=== PATIENT | female | born 1960 ===

== ENCOUNTER 2020-03-04 09:37 | Outpatient (REF) | payer OTHER, SELFPAY ==
[2020-03-04 10:43] LABS: MANUAL DIFF FLAG NO
[2020-03-04 10:47] LABS: Basophils Absolute Auto 0.1 X10*3/uL (0.0-0.2); Basophils Percent Auto 0.7 % (0-2); Eosinophils Absolute Auto 0.1 X10*3/uL (0.0-0.4); Eosinophils Percent Auto 1.5 % (0-4); Hematocrit 41.8 % (37-47); Hemoglobin 13.1 g/dl (12.0-16.0); Imm Gran Abs Auto 0.05 X10*3/uL (0.00-0.03); Imm Gran Pct Auto 0.7 % (0.0-0.4); Lymphocytes Absolute Auto 2.7 X10*3/uL (1.2-4.9); Lymphocytes Percent Auto 37.8 % (20-40); Mean Corpuscular HGB Conc 31.3 g/dl (31.0-35.0); Mean Corpuscular Hemoglobin 27.9 pg (27.0-33.0); Mean Corpuscular Volume 88.9 fL (80-98); Mean Platelet Volume 9.4 fL (9.4-12.3); Monocytes Absolute Auto 0.5 X10*3/uL (0.1-1.2); Monocytes Percent Auto 7.3 % (2-11); Neutrophils Absolute Auto 3.7 X10*3/uL (2.0-8.3); Platelet Count 290 X10*3/uL (160-400); Red Cell Distribution Width 13.3 % (11.0-16.0); White Blood Count 7.1 X10*3/uL (4.8-10.8)
[2020-03-04 10:54] LABS: Appearance Urine HAZY; Color Urine YELLOW; Glucose Urine UA 500 MG/DL (NEG); Leukocyte Esterase Urine NEG (NEG); Nitrite Urine NEG (NEG); Urine Blood NEG (NEG); Urine Ketones 5 MG/DL (NEG); Urine Protein NEG (NEG-TRACE)
[2020-03-04 11:06] LABS: RBC Urine 0-2 /HPF (0); Squamous Epithelial Cell Urine 2+ /LPF; WBC Urine 0-2 /HPF (0-4)
[2020-03-04 11:16] LABS: Alanine Aminotransferase 22 U/L (0-31); Albumin Level 4.3 g/dL (3.5-5.0); Alkaline Phosphatase 86 U/L (39-117); Anion Gap 11 (12-20); Aspartate Amino Transferase 15 U/L (5-31); Bilirubin Total 0.5 mg/dL (0.0-1.0); Blood Urea Nitrogen 12 mg/dL (9-16); Calcium 9.7 mg/dL (8.4-10.2); Carbon Dioxide 34 mmol/L (22-29); Chloride 99 mmol/L (96-108); Cholesterol 188 mg/dL; Estimated Glomerular Filt Rate > 60; Glucose Fasting 249 mg/dL (60-99); HDL Cholesterol 43 mg/dL; LDL Cholesterol Calculated 102 mg/dl; Potassium 4.7 mmol/l (3.3-5.1); Sodium 139 mmol/L (135-145); Total Protein 7.3 g/dL (6.5-8.0); Triglycerides 218 mg/dL
[2020-03-04 11:41] LABS: TSH reflex Free T4 0.85 mIU/mL (0.32-4.0); Vitamin D 25-OH Total 36.7 ng/mL (>30)
[2020-03-04 12:05] LABS: Creatinine Urine 93.81 mg/dL; Microalbum/Creatinine Ratio Ur 11.7 ug/mg cr
[2020-03-04 12:10] LABS: Folate 7.3 ng/mL (> or = 4.0); Vitamin B12 312 pg/mL (200-900)
== END 2020-03-04 09:38 | disposition home or self-care (01) ==
LOC: HO.LAB 09:37
PROVIDERS: PCP Internal Medicine; Visit Provider Internal Medicine
DX: E11.9 Type 2 diabetes mellitus without complications (principal); I10 Essential (primary) hypertension; E78.5 Hyperlipidemia, unspecified; R41.3 Other amnesia; E53.8 Deficiency of other specified B group vitamins; K21.9 Gastro-esophageal reflux disease without esophagitis; E55.9 Vitamin D deficiency, unspecified
CPT/HCPCS: 36415; 80053; 80061; 81003; 81015; 82043; 82306; 82607; 82746; 84443; 85025

== ENCOUNTER 2020-05-05 08:34 | Outpatient (REF) | payer OTHER, SELFPAY ==
--- NOTE | 2020-05-06 10:21 | MHC.AU.P13 ---
Adult Audiological Evaluation Date of Visit: 05/05/20 [place] Used: Not Applicable Reason for Appointment: Audiologic re-evaluation due to fluctuating changes in hearing ability. Previous Hearing Test Results: 06/17/2018 [facility] Right ear: Normal thresholds at 250 and 500 Hz sloping to a moderate high frequency sensorineural hearing loss. Left ear: No measurable hearing for all frequencies. Ear History: Bothersome Tinnitus/Ringing/Noises in Ears: Both Ears Medical History: Medical History: Diabetes Head Injury High Blood Pressure Migraines Medical History: Asthma, high cholesterol, Vitamin B12 and D deficiency Hearing Instrument History- Right Ear: Street Roller Engineer: Phonak Model: Audeo B-312 Serial Number: [id number] Battery Size: 312 Warranty: 06/05/2019 Dispensed By: [facility] Date of Fittin03/16/2017 Hearing Instrument History- Left Ear: Street Roller Engineer: Phonak Model: CROS B-312 Serial Number: [id number] Battery Size: 312 Warranty: 06/05/2019 Dispensed By: [facility] Date of Fittin03/16/2017 Otoscopy: Right Ear: Unremarkable Left Ear: Unremarkable Tympanometry: Right Ear: Negative Middle Ear Pressure (Type C) Left Ear: Non-compliant Middle Ear System (Type B) Hearing Evaluation: Transducer(s) Used: Insert Earphones Bone Conduction Method: Conventional Audiometry Stimuli Used: Pure Tones Right Ear: Description of Hearing: Mild to moderately-severe mixed hearing loss Left Ear: Description of Hearing: No measurable hearing ability for all frequencies 250-8000 Hz. Speech Recognition Threshold (SRT): Method Used: Monitored Live Voice Stimuli Used: Spondee Words Right Ear: 35 dB HL Left Ear: Did Not Test Word Discrimination: Method: Recorded Lists Word Lists Used: NU-6 Right Ear: 76% at 75 dB HL Left Ear: Did Not Test Comparison: Compared to most recent evaluation: 10 dB conductive decrease for the right ear at 250-1000 Hz. This may be related to the increased right ear negative middle ear pressure compared to 2019 results. The perceived fluctuation of hearing may also relate to intermittent changes in middle ear pressure as Yvonne reports intermittent increases in congestion. Recommendations: Recommendations: Audiological re-evaluation in one year. See Hearing Aid Follow-Up note for more information. Diagnosis: Primary Diagnosis: H90.3 Bilateral Sensorineural Hearing Loss Secondary Diagnosis: H69.92 Unspecified Eustachian Tube Dysfunction, Left Ear Services Performed: Services Performed: Comprehensive Audiological Evaluation (CPT 28273) Tympanometry (CPT 61304) Signature: Provider: Reji Bernstein, CCC-A
== END 2020-05-05 08:35 | disposition home or self-care (01) ==
LOC: HO.SH 08:34
PROVIDERS: Visit Provider Internal Medicine
DX: H69.92 Unspecified Eustachian tube disorder, left ear (principal); H90.3 Sensorineural hearing loss, bilateral
CPT/HCPCS: 92557; 92567

== ENCOUNTER 2020-05-17 10:10 | Outpatient (REF) | payer OTHER, SELFPAY ==
--- NOTE | 2020-05-17 10:42 | XR_ITS ---
EXAMINATION: XR STANDING AP KNEES, BILATERAL XR KNEE, RIGHT XR KNEE, LEFT CLINICAL INFORMATION: Bilateral knee pain. COMPARISON: Standing AP knees and bilateral knees 05/10/2016. TECHNIQUE: Standing AP view of both knees is performed. In addition, each knee is imaged in lateral and axial patella views. FINDINGS: Right knee: There is normal bony mineralization. No fracture, dislocation, destructive process, or suprapatellar effusion. Hoffa's fat pad appears normal. There are degenerative changes patellofemoral joint with mild narrowing and patellar spurring. There are small marginal osteophytes medial femoral condyle and medial lateral tibial plateau. No erosive change or chondrocalcinosis. Left knee: There is normal bony mineralization. No fracture, dislocation, destructive process, or suprapatellar effusion. Hoffa's fat pad appears normal. There are degenerative changes patellofemoral joint with mild narrowing and patellar spurring. There are small marginal osteophytes medial and lateral femoral condyles and medial and lateral tibial plateau. There is also central spurring tibial spine and inner aspect condyles. No erosive change or chondrocalcinosis. XR/XR knee RT 2V IMPRESSION: Bilateral degenerative changes with bilateral patellofemoral joint narrowing and variable osteophytes femoral condyles and tibial plateau. No erosive change, visible chondrocalcinosis, or effusion.
--- NOTE | 2020-05-17 10:42 | XR_ITS ---
EXAMINATION: XR STANDING AP KNEES, BILATERAL XR KNEE, RIGHT XR KNEE, LEFT CLINICAL INFORMATION: Bilateral knee pain. COMPARISON: Standing AP knees and bilateral knees 05/10/2016. TECHNIQUE: Standing AP view of both knees is performed. In addition, each knee is imaged in lateral and axial patella views. FINDINGS: Right knee: There is normal bony mineralization. No fracture, dislocation, destructive process, or suprapatellar effusion. Hoffa's fat pad appears normal. There are degenerative changes patellofemoral joint with mild narrowing and patellar spurring. There are small marginal osteophytes medial femoral condyle and medial lateral tibial plateau. No erosive change or chondrocalcinosis. Left knee: There is normal bony mineralization. No fracture, dislocation, destructive process, or suprapatellar effusion. Hoffa's fat pad appears normal. There are degenerative changes patellofemoral joint with mild narrowing and patellar spurring. There are small marginal osteophytes medial and lateral femoral condyles and medial and lateral tibial plateau. There is also central spurring tibial spine and inner aspect condyles. No erosive change or chondrocalcinosis. XR/XR knee standing BI IMPRESSION: Bilateral degenerative changes with bilateral patellofemoral joint narrowing and variable osteophytes femoral condyles and tibial plateau. No erosive change, visible chondrocalcinosis, or effusion.
--- NOTE | 2020-05-17 10:42 | XR_ITS ---
EXAMINATION: XR STANDING AP KNEES, BILATERAL XR KNEE, RIGHT XR KNEE, LEFT CLINICAL INFORMATION: Bilateral knee pain. COMPARISON: Standing AP knees and bilateral knees 05/10/2016. TECHNIQUE: Standing AP view of both knees is performed. In addition, each knee is imaged in lateral and axial patella views. FINDINGS: Right knee: There is normal bony mineralization. No fracture, dislocation, destructive process, or suprapatellar effusion. Hoffa's fat pad appears normal. There are degenerative changes patellofemoral joint with mild narrowing and patellar spurring. There are small marginal osteophytes medial femoral condyle and medial lateral tibial plateau. No erosive change or chondrocalcinosis. Left knee: There is normal bony mineralization. No fracture, dislocation, destructive process, or suprapatellar effusion. Hoffa's fat pad appears normal. There are degenerative changes patellofemoral joint with mild narrowing and patellar spurring. There are small marginal osteophytes medial and lateral femoral condyles and medial and lateral tibial plateau. There is also central spurring tibial spine and inner aspect condyles. No erosive change or chondrocalcinosis. XR/XR knee LT 2V IMPRESSION: Bilateral degenerative changes with bilateral patellofemoral joint narrowing and variable osteophytes femoral condyles and tibial plateau. No erosive change, visible chondrocalcinosis, or effusion.
[2020-05-17 11:07] LABS: MANUAL DIFF FLAG NO
[2020-05-17 11:11] LABS: Basophils Absolute Auto 0.1 X10*3/uL (0.0-0.2); Basophils Percent Auto 0.7 % (0-2); Eosinophils Absolute Auto 0.1 X10*3/uL (0.0-0.4); Eosinophils Percent Auto 1.2 % (0-4); Hematocrit 41.1 % (37-47); Hemoglobin 13.1 g/dl (12.0-16.0); Imm Gran Abs Auto 0.06 X10*3/uL (0.00-0.03); Imm Gran Pct Auto 0.8 % (0.0-0.4); Lymphocytes Absolute Auto 2.3 X10*3/uL (1.2-4.9); Lymphocytes Percent Auto 29.4 % (20-40); Mean Corpuscular HGB Conc 31.9 g/dl (31.0-35.0); Mean Corpuscular Hemoglobin 28.4 pg (27.0-33.0); Mean Corpuscular Volume 89.2 fL (80-98); Mean Platelet Volume 9.5 fL (9.4-12.3); Monocytes Absolute Auto 0.6 X10*3/uL (0.1-1.2); Monocytes Percent Auto 7.4 % (2-11); Neutrophils Absolute Auto 4.6 X10*3/uL (2.0-8.3); Neutrophils Percent Auto 60.5 % (45-73); Platelet Count 293 X10*3/uL (160-400); Red Blood Count 4.61 X10*6/uL (4.20-5.50); Red Cell Distribution Width 13.3 % (11.0-16.0); White Blood Count 7.7 X10*3/uL (4.8-10.8)
[2020-05-17 11:33] LABS: Alanine Aminotransferase 22 U/L (0-31); Albumin Level 4.4 g/dL (3.5-5.0); Alkaline Phosphatase 87 U/L (39-117); Anion Gap 15 (12-20); Aspartate Amino Transferase 17 U/L (5-31); Bilirubin Total 0.3 mg/dL (0.0-1.0); Blood Urea Nitrogen 16 mg/dL (9-16); Calcium 9.6 mg/dL (8.4-10.2); Carbon Dioxide 28 mmol/L (22-29); Chloride 100 mmol/L (96-108); Cholesterol 192 mg/dL; Estimated Glomerular Filt Rate > 60; Glucose Fasting 254 mg/dL (60-99); HDL Cholesterol 42 mg/dL; LDL Cholesterol Calculated 109 mg/dl; Potassium 4.6 mmol/l (3.3-5.1); Sodium 138 mmol/L (135-145); Total Protein 7.6 g/dL (6.5-8.0); Triglycerides 205 mg/dL
[2020-05-17 11:44] LABS: TSH reflex Free T4 0.76 mIU/mL (0.32-4.0); Vitamin D 25-OH Total 34.1 ng/mL (>30)
[2020-05-17 11:49] LABS: Glucose Urine UA 500 MG/DL (NEG); Leukocyte Esterase Urine NEG (NEG); Nitrite Urine NEG (NEG); Specific Gravity - Urine >= 1.030 (1.005-1.025); Urine Blood NEG (NEG); Urine Ketones 5 MG/DL (NEG); Urine Protein NEG (NEG-TRACE)
[2020-05-17 11:58] LABS: Appearance Urine CLEAR; Color Urine YELLOW
[2020-05-17 12:02] LABS: Creatinine Urine 124.33 mg/dL; Microalbum/Creatinine Ratio Ur 15.2 ug/mg cr
[2020-05-17 12:03] LABS: Folate 13.8 ng/mL (> or = 4.0); Vitamin B12 504 pg/mL (200-900)
== END 2020-05-17 10:11 | disposition home or self-care (01) ==
LOC: HO.LAB 10:10
PROVIDERS: Absent Provider Orthopaedic Surgery; PCP Internal Medicine; Visit Provider Internal Medicine
DX: I10 Essential (primary) hypertension (principal); K21.9 Gastro-esophageal reflux disease without esophagitis; E53.8 Deficiency of other specified B group vitamins; E11.9 Type 2 diabetes mellitus without complications; E78.00 Pure hypercholesterolemia, unspecified; E55.9 Vitamin D deficiency, unspecified; E66.9 Obesity, unspecified; M25.562 Pain in left knee; M25.561 Pain in right knee
CPT/HCPCS: 36415; 73560; 73565; 80053; 80061; 81003; 82043; 82306; 82607; 82746; 84443; 85025

== ENCOUNTER → 2020-05-25 08:01 | Outpatient (BNVA) | payer OTHER, SELFPAY | PROVIDERS: PCP Internal Medicine; Visit Provider Orthopaedic Surgery | DX: M17.0 Bilateral primary osteoarthritis of knee (principal) | CPT/HCPCS: 20610; 99202; J1040 ==

== ENCOUNTER → 2020-06-08 08:15 | Outpatient (BNVA) | payer OTHER, SELFPAY | PROVIDERS: PCP Internal Medicine; Visit Provider Orthopaedic Surgery | DX: M17.0 Bilateral primary osteoarthritis of knee (principal) | CPT/HCPCS: 20610; 99212; J1040 ==

== ENCOUNTER 2020-07-15 14:54 | Outpatient (REF) | payer OTHER, SELFPAY ==
[2020-07-20 17:37] LABS: HPV mRNA E6/E7 rflx Not Detected (Not Detected)
== END 2020-07-15 14:55 | disposition home or self-care (01) ==
LOC: HO.LAB 14:54
PROVIDERS: PCP Internal Medicine; Visit Provider Obstetrics & Gynecology
DX: Z01.419 Encounter for gynecological examination (general) (routine) without abnormal findings (principal); N95.0 Postmenopausal bleeding; Z11.51 Encounter for screening for human papillomavirus (HPV); I10 Essential (primary) hypertension; E11.9 Type 2 diabetes mellitus without complications; E78.00 Pure hypercholesterolemia, unspecified; E66.9 Obesity, unspecified; F41.8 Other specified anxiety disorders; J30.81 Allergic rhinitis due to animal (cat) (dog) hair and dander; Z88.0 Allergy status to penicillin; Z88.2 Allergy status to sulfonamides; Z88.8 Allergy status to other drugs, medicaments and biological substances; Z88.6 Allergy status to analgesic agent; Z91.040 Latex allergy status; Z79.84 Long term (current) use of oral hypoglycemic drugs; Z79.899 Other long term (current) drug therapy
CPT/HCPCS: 36415; 87624; 88142

== ENCOUNTER 2020-07-26 14:25 | Outpatient (REF) | payer OTHER, SELFPAY ==
--- NOTE | ~2020-07-26 | US_ITS ---
EXAMINATION: ULTRASOUND PELVIS COMPLETE CLINICAL INFORMATION: Postmenopausal bleeding COMPARISON: None TECHNIQUE: Transabdominal and transvaginal ultrasound of the pelvis is performed. FINDINGS: On transabdominal ultrasound the uterus is anteverted and anteflexed measuring 8.4 cm in length, 3.6 cm in AP and 4.3 cm in transverse dimension. There are two hypoechoic lesions. Lesion in the posterior body of uterus measures 1.1 x 0.91 x 1.2 cm. Second lesion slightly larger in the posterior fundus measures 2.3 x 2.9 x 2.6 cm. There are small nabothian cysts in the cervix. The endometrium is not well visualized. Right ovary is not visualized. The left ovary measures 2.5 x 2.0 x 1.8 cm and volume 4.7 mL. There is no free fluid in the cul-de-sac US/US transvaginal IMPRESSION: 1. Two uterine fibroids. 2. Small nabothian cysts in the cervix. 3. Left ovary is unremarkable. Right ovary is not seen.
--- NOTE | ~2020-07-26 | US_ITS ---
EXAMINATION: ULTRASOUND PELVIS COMPLETE CLINICAL INFORMATION: Postmenopausal bleeding COMPARISON: None TECHNIQUE: Transabdominal and transvaginal ultrasound of the pelvis is performed. FINDINGS: On transabdominal ultrasound the uterus is anteverted and anteflexed measuring 8.4 cm in length, 3.6 cm in AP and 4.3 cm in transverse dimension. There are two hypoechoic lesions. Lesion in the posterior body of uterus measures 1.1 x 0.91 x 1.2 cm. Second lesion slightly larger in the posterior fundus measures 2.3 x 2.9 x 2.6 cm. There are small nabothian cysts in the cervix. The endometrium is not well visualized. Right ovary is not visualized. The left ovary measures 2.5 x 2.0 x 1.8 cm and volume 4.7 mL. There is no free fluid in the cul-de-sac US/US pelvic complete IMPRESSION: 1. Two uterine fibroids. 2. Small nabothian cysts in the cervix. 3. Left ovary is unremarkable. Right ovary is not seen.
== END 2020-07-26 14:26 | disposition home or self-care (01) ==
LOC: HO.US 14:25
PROVIDERS: Visit Provider Obstetrics & Gynecology
DX: N95.0 Postmenopausal bleeding (principal)
CPT/HCPCS: 76830; 76856

== ENCOUNTER → 2020-07-29 10:46 | Outpatient (BNVA) | payer OTHER, SELFPAY | PROVIDERS: Visit Provider Obstetrics & Gynecology | DX: Z01.419 Encounter for gynecological examination (general) (routine) without abnormal findings (principal) | CPT/HCPCS: Q3014 ==

== ENCOUNTER → 2020-08-12 13:21 | Outpatient (BNVA) | payer OTHER, SELFPAY | PROVIDERS: PCP Internal Medicine; Visit Provider Obstetrics & Gynecology | DX: N95.0 Postmenopausal bleeding (principal) | CPT/HCPCS: 99212 ==

== ENCOUNTER → 2020-08-23 14:43 | Outpatient (BNVA) | payer OTHER, SELFPAY | PROVIDERS: Visit Provider Obstetrics & Gynecology | DX: N95.0 Postmenopausal bleeding (principal) | CPT/HCPCS: 99212 ==

== ENCOUNTER 2020-08-27 09:06 | Day surgery (SDC) | payer OTHER, SELFPAY ==
[2020-08-23 14:17] VITALS: BMI 38.5
--- NOTE | 2020-08-26 08:57 | HO.ANESPROP2 ---
Documented by User: Ami Guzman 08/26/20 08:58 HPI - Anesthesia Eval Consult details Narrative: 60yo F for D&C Hysteroscopy, Poss Polypectomy Poss Myomectomy PMFSH Active Problems Active Problems: All Active Problems (Updated 08/23/20 @ 14:19 by Mouna Montejo) Well woman exam (Acute) Postmenopausal bleeding (Acute) Myoma (Acute) Hearing impairment (Acute) Obesity (BMI 30-39.9) (Acute) Depression (Acute) Anxiety (Acute) Insomnia (Acute) Vitamin B12 deficiency (Acute) Vitamin D deficiency (Acute) Migraine (Acute) GERD (gastroesophageal reflux disease) (Acute) Osteoarthritis of knees, bilateral (Acute) Lumbar degenerative disc disease (Acute) Asthma (Acute) Pure hypercholesterolemia (Acute) Benign essential hypertension (Acute) Diabetes mellitus (Acute) Past Medical History Medical History Anxiety Asthma Benign essential hypertension Depression Diabetes mellitus GERD (gastroesophageal reflux disease) Hearing impairment Insomnia Lumbar degenerative disc disease Migraine Obesity (BMI 30-39.9) Osteoarthritis of knees, bilateral Pure hypercholesterolemia Vitamin B12 deficiency Vitamin D deficiency Family History Family History Father Diabetes Mother Hypertension High cholesterol Family history of thyroid problem Paternal Grandfather Leukemia Surgical History Surgical History H/O colonoscopy History of section History of eye surgery History of pubovaginal sling History of suburethral sling procedure (~05/07/12) History of tonsillectomy History of tubal ligation Ingrown toenail of left foot Social History Social History Smoking Status: Never smoker Advance Directives Information Provided: No Current occupational status: unemployed Current occupation: Right [employer]ed Meds Allergies Allergy/AdvReac Type Severity Reaction Status Date / Time aspirin [ASPIRIN] Allergy Intermediate ITCH, Verified 08/23/20 14:51 hives, Hives diphenhydramine Allergy Intermediate hives Verified 08/23/20 14:51 [From Benadryl] dog dander [DOG] Allergy Intermediate SINUS Verified 08/23/20 14:51 PROBLEMS latex [LATEX] Allergy Intermediate ITCHY Verified 08/23/20 14:51 Penicillins [PENICILLINS] Allergy Intermediate FAINT Verified 08/23/20 14:51 Sulfa (Sulfonamide Allergy Intermediate nausea, Verified 08/23/20 14:51 Antibiotics) vomiting, myalgia, headache oxybutynin Allergy Unknown unknown Verified 08/23/20 14:51 gabapentin AdvReac Intermediate difficulty Verified 08/23/20 14:51 sleeping ENVIRONMENTAL Allergy Intermediate SINUS Uncoded 08/12/20 13:38 PROBLEMS Exam Exam Date and Time: August 26, 2020 0857 Height,Weight and Vital Signs: Height 5 ft 6 in Weight 108.409 kg Assessment and Plan Assessment Anesthesia Assessment: Chart Reviewed Documented by User: Nahomy Guzman 08/27/20 11:47 PMFSH Past Medical History Medical History Anxiety Asthma Benign essential hypertension Depression Diabetes mellitus GERD (gastroesophageal reflux disease) Hearing impairment Insomnia Lumbar degenerative disc disease Migraine Obesity (BMI 30-39.9) Osteoarthritis of knees, bilateral Pure hypercholesterolemia Vitamin B12 deficiency Vitamin D deficiency Family History Family History Father Diabetes Mother Hypertension High cholesterol Family history of thyroid problem Paternal Grandfather Leukemia Surgical History Surgical History H/O colonoscopy History of section History of eye surgery History of pubovaginal sling History of suburethral sling procedure (~05/07/12) History of tonsillectomy History of tubal ligation Ingrown toenail of left foot Social History Social History Smoking Status: Never smoker Advance Directives Information Provided: No Current occupational status: unemployed Current occupation: Right [employer]ed Meds Allergies Allergy/AdvReac Type Severity Reaction Status Date / Time aspirin [ASPIRIN] Allergy Intermediate ITCH, Verified 08/23/20 14:51 hives, Hives diphenhydramine Allergy Intermediate hives Verified 08/23/20 14:51 [From Benadryl] dog dander [DOG] Allergy Intermediate SINUS Verified 08/23/20 14:51 PROBLEMS latex [LATEX] Allergy Intermediate ITCHY Verified 08/23/20 14:51 Penicillins [PENICILLINS] Allergy Intermediate FAINT Verified 08/23/20 14:51 Sulfa (Sulfonamide Allergy Intermediate nausea, Verified 08/23/20 14:51 Antibiotics) vomiting, myalgia, headache oxybutynin Allergy Unknown unknown Verified 08/23/20 14:51 gabapentin AdvReac Intermediate difficulty Verified 08/23/20 14:51 sleeping ENVIRONMENTAL Allergy Intermediate SINUS Uncoded 08/12/20 13:38 PROBLEMS Exam Airway Mallampati Class: II TM Dist: >3cm Neck ROM: Full Assessment and Plan Assessment Anesthesia Assessment: Anesthesia Plan Discussed and Chart Reviewed Final Anesthetic Review NPO: Yes ASA Class: III Final Preanesthetic Review: No Changes in Pt Med Stat, Meds/Allgs Chart Reviewed, Consent Obtained/Reviewed and Anes Risks/Benef Reviewed Patient Risk: Intermediate Procedure Risk: Low Assessment/Block/Sedation in SS: Assess/Block/Sedation-SS Anesthetic Plan Anesthetic Plan: MAC: Disposition: Standard PACU
[2020-08-27 10:03] LABS: Glucose, Whole Blood 245 mg/dL (60-115)
[2020-08-27 10:38] VITALS: BP 130/80; PULSE 92; RESP 20; TEMP 36.6; O2SAT 95
--- NOTE | 2020-08-27 10:48 | MHC.SHP ---
Pre-Procedural Eval Section A The patient is an INPATIENT: No Changes since office visit: No Cold of Flu in the past 2 weeks, No New Medical Problems, No Changes in Medication and No Patient answered all questions The History & Physical has been completed within 30 days and I have reviewed it.: Yes Section B Chief Complaint: PMB Allergies: Allergies Allergy/AdvReac Type Severity Reaction Status Date / Time aspirin [ASPIRIN] Allergy Intermediate ITCH, Verified 08/23/20 14:51 hives, Hives diphenhydramine Allergy Intermediate hives Verified 08/23/20 14:51 [From Benadryl] dog dander [DOG] Allergy Intermediate SINUS Verified 08/23/20 14:51 PROBLEMS latex [LATEX] Allergy Intermediate ITCHY Verified 08/23/20 14:51 Penicillins [PENICILLINS] Allergy Intermediate FAINT Verified 08/23/20 14:51 Sulfa (Sulfonamide Allergy Intermediate nausea, Verified 08/23/20 14:51 Antibiotics) vomiting, myalgia, headache oxybutynin Allergy Unknown unknown Verified 08/23/20 14:51 gabapentin AdvReac Intermediate difficulty Verified 08/23/20 14:51 sleeping ENVIRONMENTAL Allergy Intermediate SINUS Uncoded 08/12/20 13:38 PROBLEMS Plan Diagnosis/Plan: Unchanged I have reviewed the history and physical and performed a pertinent physical examination on my patient. No changes have occurred unless specified.
[2020-08-27] MEDS: Lactated Ringers 1,000 ML 100 ML IVCONT (10:57)
--- NOTE | 2020-08-27 11:43 | PC.NURSE ---
anesthesia aware of bs
--- NOTE | 2020-08-27 12:31 | PM.OP ---
Brief Operative Note Date of Service: 08/27/20 Pre-op diagnosis: Postmenopausla bleeding Post-op diagnosis: other (cervical stenosis) Procedure: Hysteroscopy D&C, Polypectomy Excision of endocervix Surgeon: Carlos Garcia MD Anesthesia: MAC Estimated blood loss (mL): 0 Pathology: other (Endometrial Scrapping. endocervix) Condition: stable Disposition: PACU
--- NOTE | 2020-08-27 12:32 | P.OP_ITS ---
Operative Note Operative Note Date of Service: 08/27/20 Narrative: Preop Diagnosis: Pstmenopausal bleeding Operation: Diagnostic Hysteroscopy, Dilataion & Curettage , endocervicla excision Post Op Diagnosis: normal endometrial and endocervical cavity , endocervical stenosis QBL: Minimal Anesthesia: MAC Surgeon: Carlos Garcia MD Community Health Advocate: None Complication: None Pathology: Endometrial Scrapings, endocervix Procedure: The patient was put in the dorsal lithotomy position, scrubbed, and draped in the usual manner. A sterile speculum was inserted in the patient's vagina. The anterior lip of the cervix was grasped with a single tooth tenaculum. The cervix was foudn to be stenosies, using a small leep electrode, theendocervic was excised then dilated up to 5 mm, then the scope was inserted in the patient's uterus. Inspection revealed normal endocervical & endometrial cavity with no evidence of pathology. The scope was taken out of the uterine cavity , then sharp curetting was carried on with no complications. At the end of the procedure, all instruments were taken out of the patient uterine and vaginal cavity. The single tooth tenaculum was removed and homeostasis was assured using pressure. The patient tolerated the procedure well and was transferred to the PACU in a stable condition.
[2020-08-27 12:39] VITALS: BP 141/88; PULSE 92; RESP 16; TEMP 36.8; O2SAT 96
[2020-08-27] MEDS: Acetaminophen 325 MG TABLET 650 MG PO (12:52)
[2020-08-27 12:54] VITALS: BP 147/86; PULSE 82; RESP 20; O2SAT 96
== END 2020-08-27 13:34 ==
LOC: HO.SSS 09:07
PROVIDERS: PCP Internal Medicine; Visit Provider Obstetrics & Gynecology
PROC: 0UDB8ZZ Extraction of Endometrium, Via Natural or Artificial Opening Endoscopic (ICD-10-PCS; CPT 58558; principal; 2020-08-27 12:00)
DX: N95.0 Postmenopausal bleeding (principal); N72 Inflammatory disease of cervix uteri; I10 Essential (primary) hypertension; J45.909 Unspecified asthma, uncomplicated; E11.9 Type 2 diabetes mellitus without complications; Z79.84 Long term (current) use of oral hypoglycemic drugs; Z79.899 Other long term (current) drug therapy; Z88.0 Allergy status to penicillin; Z88.2 Allergy status to sulfonamides; Z91.040 Latex allergy status; Z88.8 Allergy status to other drugs, medicaments and biological substances; Z98.51 Tubal ligation status
CPT/HCPCS: 58558; 82947; 88305; J1885; J2250; J2405; J3010

== ENCOUNTER → 2020-09-09 11:33 | Outpatient (BNVA) | payer OTHER, SELFPAY | PROVIDERS: PCP Internal Medicine; Visit Provider Obstetrics & Gynecology | CPT/HCPCS: Q3014 ==

== ENCOUNTER 2020-09-20 13:52 | Outpatient (REF) | payer OTHER, SELFPAY ==
--- NOTE | ~2020-09-20 | MM_ITS ---
EXAMINATION: MM SCREENING DIGITAL BREAST TOMOSYNTHESIS, BILATERAL CLINICAL INFORMATION: Screening. Asymptomatic. The lifetime risk of breast cancer based on the Tyrer-Cuzick Model is 11%. COMPARISON: Mammography: 04/12/2018, 03/16/2017, 02/23/2016, 02/10/2015; ultrasound right breast 01/11/2014. TECHNIQUE: Digital breast tomosynthesis is performed in both the craniocaudal and mediolateral oblique views along with computer-aided detection (CAD). Synthesized 2D images are generated from the tomosynthesis. FINDINGS: There are scattered areas of fibroglandular density (ACR BI-RADS breast composition Category b). There are no significant masses, abnormal calcifications, or other abnormalities. Again, there is small oval nodule posterior inferior medial right breast seen on multiple prior exams of similar size. The skin contours are smooth. No significant changes. MM/MM tomosynthesis screening BI IMPRESSION: No significant changes from prior exams. ASSESSMENT: BI-RADS 2: Benign RECOMMENDATION: Routine annual mammography screening. This patient's information was entered into a reminder system with a target due date for their next mammogram.
== END 2020-09-20 13:53 | disposition home or self-care (01) ==
LOC: HO.MAMMO 13:52
PROVIDERS: Visit Provider Obstetrics & Gynecology
DX: Z12.31 Encounter for screening mammogram for malignant neoplasm of breast (principal)
CPT/HCPCS: 77063; 77067

== ENCOUNTER 2021-02-08 14:16 | Outpatient (REF) | payer OTHER, SELFPAY ==
--- NOTE | ~2021-02-08 | US_ITS ---
EXAMINATION: US PELVIS COMPLETE CLINICAL INFORMATION: Benign neoplasm of connective tissue. COMPARISON: None TECHNIQUE: Transabdominal and transvaginal imaging of pelvis is performed. FINDINGS: The uterus is anteverted and anteflexed measuring 7.8 cm in length, 2.9 cm in AP, and 3.9 cm in transverse dimension. Endometrial thickness measures 0.2 cm. There is a small hypoechoic lesion in the posterior body of the uterus consistent with fibroid measuring 1.0 x 1.0 x 0.9 cm. Previously, it measured 1.1 x 0.9 x 1.2 cm. Previously seen second lesion is not seen at this time. The endometrial thickness is 0.2 cm. Right ovary is not well visualized. The left ovary measures 2.1 x 1.6 x 1.2 cm and volume 2.1 mL. There is no free fluid in the cul-de-sac. US/US transvaginal IMPRESSION: Small fibroid posterior body of uterus. The second lesion described previously is not visualized. The left ovary is unremarkable. The right ovary is not seen.
--- NOTE | ~2021-02-08 | US_ITS ---
EXAMINATION: US PELVIS COMPLETE CLINICAL INFORMATION: Benign neoplasm of connective tissue. COMPARISON: None TECHNIQUE: Transabdominal and transvaginal imaging of pelvis is performed. FINDINGS: The uterus is anteverted and anteflexed measuring 7.8 cm in length, 2.9 cm in AP, and 3.9 cm in transverse dimension. Endometrial thickness measures 0.2 cm. There is a small hypoechoic lesion in the posterior body of the uterus consistent with fibroid measuring 1.0 x 1.0 x 0.9 cm. Previously, it measured 1.1 x 0.9 x 1.2 cm. Previously seen second lesion is not seen at this time. The endometrial thickness is 0.2 cm. Right ovary is not well visualized. The left ovary measures 2.1 x 1.6 x 1.2 cm and volume 2.1 mL. There is no free fluid in the cul-de-sac. US/US pelvic complete IMPRESSION: Small fibroid posterior body of uterus. The second lesion described previously is not visualized. The left ovary is unremarkable. The right ovary is not seen.
== END 2021-02-08 14:17 | disposition home or self-care (01) ==
LOC: HO.US 14:16
PROVIDERS: PCP Internal Medicine; Visit Provider Obstetrics & Gynecology
DX: D21.9 Benign neoplasm of connective and other soft tissue, unspecified (principal)
CPT/HCPCS: 76830; 76856

== ENCOUNTER 2021-02-14 06:31 | Outpatient (REF) | payer OTHER, SELFPAY ==
[2021-02-14 06:59] LABS: MANUAL DIFF FLAG NO
[2021-02-14 07:04] LABS: Basophils Absolute Auto 0.1 X10*3/uL (0.0-0.2); Basophils Percent Auto 0.6 % (0-2); Eosinophils Absolute Auto 0.2 X10*3/uL (0.0-0.4); Eosinophils Percent Auto 1.7 % (0-4); Hematocrit 42.4 % (37-47); Hemoglobin 13.8 g/dl (12.0-16.0); Imm Gran Abs Auto 0.12 X10*3/uL (0.00-0.03); Imm Gran Pct Auto 1.3 % (0.0-0.4); Lymphocytes Absolute Auto 3.7 X10*3/uL (1.2-4.9); Lymphocytes Percent Auto 40.5 % (20-40); Mean Corpuscular HGB Conc 32.5 g/dl (31.0-35.0); Mean Corpuscular Hemoglobin 28.3 pg (27.0-33.0); Mean Corpuscular Volume 87.1 fL (80-98); Mean Platelet Volume 9.6 fL (9.4-12.3); Monocytes Absolute Auto 0.7 X10*3/uL (0.1-1.2); Monocytes Percent Auto 7.4 % (2-11); Neutrophils Absolute Auto 4.5 X10*3/uL (2.0-8.3); Neutrophils Percent Auto 48.5 % (45-73); Platelet Count 303 X10*3/uL (160-400); Red Blood Count 4.87 X10*6/uL (4.20-5.50); Red Cell Distribution Width 13.5 % (11.0-16.0); White Blood Count 9.2 X10*3/uL (4.8-10.8)
[2021-02-14 08:22] LABS: Alanine Aminotransferase 19 U/L (0-31); Albumin Level 4.4 g/dL (3.5-5.0); Alkaline Phosphatase 104 U/L (39-117); Anion Gap 14 (12-20); Aspartate Amino Transferase 13 U/L (5-31); Bilirubin Total 0.3 mg/dL (0.0-1.0); Blood Urea Nitrogen 16 mg/dL (9-16); Carbon Dioxide 28 mmol/L (22-29); Chloride 98 mmol/L (96-108); Cholesterol 201 mg/dL; Estimated Glomerular Filt Rate 56; Glucose Fasting 420 mg/dL (60-99); HDL Cholesterol 41 mg/dL; LDL Cholesterol Calculated 106 mg/dl; Potassium 4.8 mmol/L (3.3-5.1); Sodium 135 mmol/L (135-145); Total Protein 7.8 g/dL (6.5-8.0); Triglycerides 273 mg/dL
[2021-02-14 08:35] LABS: TSH reflex Free T4 2.62 uIU/mL (0.32-4.0); Vitamin D 25-OH Total 36.3 ng/mL (>30)
[2021-02-14 08:55] LABS: Appearance Urine CLEAR; Color Urine YELLOW; Glucose Urine UA >=1000 MG/DL (NEG); Leukocyte Esterase Urine NEG (NEG); Nitrite Urine NEG (NEG); PH 5.5 (5.0-8.0); Urine Blood NEG (NEG); Urine Ketones 5 MG/DL (NEG); Urine Protein NEG (NEG-TRACE)
[2021-02-14 09:07] LABS: Estimated Average Glucose 272 mg/dL; Hemoglobin A1c % 11.1 %
[2021-02-14 09:12] LABS: RBC Urine 0-2 /HPF (0); Squamous Epithelial Cell Urine 1+ /LPF
[2021-02-14 09:47] LABS: Creatinine Urine 79.43 mg/dL; Microalbum/Creatinine Ratio Ur 17.6 ug/mg cr
[2021-02-14 10:53] LABS: Folate 14.9 ng/mL (> or = 4.0); Vitamin B12 388 pg/mL (200-900)
== END 2021-02-14 06:32 | disposition home or self-care (01) ==
LOC: HO.LAB 06:31
PROVIDERS: PCP Internal Medicine; Visit Provider Internal Medicine
DX: E66.9 Obesity, unspecified (principal); K21.9 Gastro-esophageal reflux disease without esophagitis; E55.9 Vitamin D deficiency, unspecified; I10 Essential (primary) hypertension; E11.9 Type 2 diabetes mellitus without complications; E78.00 Pure hypercholesterolemia, unspecified; E53.8 Deficiency of other specified B group vitamins
CPT/HCPCS: 36415; 80053; 80061; 81001; 82043; 82306; 82607; 82746; 83036; 84443; 85025

== ENCOUNTER → 2021-02-22 13:31 | Outpatient (BNVA) | payer OTHER, SELFPAY | PROVIDERS: PCP Internal Medicine; Visit Provider Obstetrics & Gynecology | DX: N95.0 Postmenopausal bleeding (principal); D21.9 Benign neoplasm of connective and other soft tissue, unspecified; I10 Essential (primary) hypertension; E78.00 Pure hypercholesterolemia, unspecified; E53.8 Deficiency of other specified B group vitamins; E55.9 Vitamin D deficiency, unspecified; F41.8 Other specified anxiety disorders; Z98.51 Tubal ligation status; Z96.0 Presence of urogenital implants; T78.49XA Other allergy, initial encounter; J30.81 Allergic rhinitis due to animal (cat) (dog) hair and dander; Z88.0 Allergy status to penicillin; Z88.2 Allergy status to sulfonamides; Z88.8 Allergy status to other drugs, medicaments and biological substances; Z88.6 Allergy status to analgesic agent; Z91.040 Latex allergy status | CPT/HCPCS: 99212 ==

== ENCOUNTER → 2021-03-22 13:41 | Outpatient (BNVA) | payer OTHER, SELFPAY | PROVIDERS: Visit Provider Obstetrics & Gynecology | DX: N95.0 Postmenopausal bleeding (principal); D21.9 Benign neoplasm of connective and other soft tissue, unspecified | CPT/HCPCS: 99212 ==

== ENCOUNTER 2021-06-20 09:59 | Outpatient (REF) | payer OTHER, SELFPAY ==
[2021-06-20 10:36] LABS: MANUAL DIFF FLAG NO
[2021-06-20 10:53] LABS: Basophils Percent Auto 0.5 % (0-2); Eosinophils Absolute Auto 0.1 X10*3/uL (0.0-0.4); Eosinophils Percent Auto 1.5 % (0-4); Hematocrit 40.3 % (37.0-47.0); Hemoglobin 12.7 g/dl (12.0-16.0); Imm Gran Abs Auto 0.11 X10*3/uL (0.00-0.03); Imm Gran Pct Auto 1.3 % (0.0-0.4); Lymphocytes Absolute Auto 2.4 X10*3/uL (1.2-4.9); Lymphocytes Percent Auto 29.5 % (20-40); Mean Corpuscular HGB Conc 31.5 g/dl (31.0-35.0); Mean Corpuscular Hemoglobin 28.5 pg (27.0-33.0); Mean Corpuscular Volume 90.6 fL (80.0-98.0); Mean Platelet Volume 9.4 fL (9.4-12.3); Monocytes Absolute Auto 0.6 X10*3/uL (0.1-1.2); Monocytes Percent Auto 7.5 % (2-11); Neutrophils Absolute Auto 4.9 x10*3/uL (2.0-8.3); Neutrophils Percent Auto 59.7 % (45-73); Platelet Count 319 X10*3/uL (160-400); Red Blood Count 4.45 X10*6/uL (4.20-5.50); Red Cell Distribution Width 13.6 % (11.0-16.0); White Blood Count 8.3 X10*3/uL (4.8-10.8)
[2021-06-20 11:18] LABS: Alanine Aminotransferase 18 U/L (0-31); Albumin Level 4.2 g/dL (3.5-5.0); Alkaline Phosphatase 77 U/L (39-117); Anion Gap 12 (12-20); Aspartate Amino Transferase 13 U/L (5-31); Bilirubin Total 0.3 mg/dL (0.0-1.0); Blood Urea Nitrogen 15 mg/dL (9-16); Calcium 9.6 mg/dL (8.4-10.2); Carbon Dioxide 31 mmol/L (22-29); Chloride 102 mmol/L (96-108); Cholesterol 196 mg/dL; Estimated Glomerular Filt Rate > 60; Glucose Fasting 215 mg/dL (60-99); HDL Cholesterol 37 mg/dL; LDL Cholesterol Calculated 104 mg/dl; Potassium 4.9 mmol/L (3.3-5.1); Sodium 140 mmol/L (135-145); Total Protein 7.3 g/dL (6.5-8.0); Triglycerides 278 mg/dL
[2021-06-20 11:37] LABS: Estimated Average Glucose 197 mg/dL; Hemoglobin A1c % 8.5 %
[2021-06-20 11:39] LABS: TSH reflex Free T4 1.13 uIU/mL (0.32-4.0); Vitamin D 25-OH Total 33.5 ng/mL (>30)
[2021-06-20 12:59] LABS: Appearance Urine CLEAR; Color Urine YELLOW; Glucose Urine UA 250 MG/DL (NEG); Leukocyte Esterase Urine NEG (NEG); Nitrite Urine NEG (NEG); Specific Gravity - Urine 1.025 (1.005-1.025); Urine Blood NEG (NEG); Urine Ketones NEG (NEG); Urine Protein NEG (NEG-TRACE)
[2021-06-20 13:18] LABS: Creatinine Urine 96.79 mg/dL; Microalbum/Creatinine Ratio Ur 15.4 ug/mg cr
== END 2021-06-20 10:00 | disposition home or self-care (01) ==
LOC: HO.LAB 09:59
PROVIDERS: PCP Internal Medicine; Visit Provider Internal Medicine
DX: E55.9 Vitamin D deficiency, unspecified (principal); I10 Essential (primary) hypertension; E78.00 Pure hypercholesterolemia, unspecified; E11.9 Type 2 diabetes mellitus without complications
CPT/HCPCS: 36415; 80053; 80061; 81003; 82043; 82306; 83036; 84443; 85025

== ENCOUNTER → 2021-08-11 09:04 | Outpatient (BNVA) | payer OTHER, SELFPAY | PROVIDERS: Visit Provider Obstetrics & Gynecology | DX: Z13.89 Encounter for screening for other disorder (principal) ==

== ENCOUNTER → 2021-09-01 10:18 | Outpatient (BNVA) | payer OTHER, SELFPAY | PROVIDERS: PCP Internal Medicine; Referring Provider Internal Medicine; Visit Provider Surgery | DX: D17.1 Benign lipomatous neoplasm of skin and subcutaneous tissue of trunk (principal) | CPT/HCPCS: 99202 ==

== ENCOUNTER → 2021-09-21 09:06 | Day surgery (SDC) | payer OTHER, SELFPAY ==
[2021-09-15 15:05] VITALS: BMI 39.0
--- NOTE | 2021-09-20 08:26 | HO.ANESPROP2 ---
HPI - Anesthesia Eval Consult details Narrative: Cx'd 09/21/21 for elevated blood sugar. Scheduled to f/u with PCP 09/27/21 61yo F for Left Excision Lipoma posterior Back PMFSH Active Problems Active Problems: All Active Problems (Updated 09/15/21 @ 15:07 by Mouna Montejo, RN) Well woman exam (Acute) Postmenopausal bleeding (Acute) Myoma (Acute) Annual physical exam (Acute) Lump of skin (Acute) Lipoma of back (Acute) Hearing impairment (Acute) Obesity (BMI 30-39.9) (Acute) Depression (Acute) Anxiety (Acute) Insomnia (Acute) Vitamin B12 deficiency (Acute) Vitamin D deficiency (Acute) Migraine (Acute) GERD (gastroesophageal reflux disease) (Acute) Osteoarthritis of knees, bilateral (Acute) Lumbar degenerative disc disease (Acute) Asthma (Acute) Pure hypercholesterolemia (Acute) Benign essential hypertension (Acute) Diabetes mellitus (Acute) Past Medical History Medical History (Updated 09/15/21 @ 15:07 by Mouna Montejo RN) Anxiety Asthma Benign essential hypertension COVID-19 vaccine series completed Depression Diabetes mellitus GERD (gastroesophageal reflux disease) Hearing impairment Insomnia Lumbar degenerative disc disease Migraine Obesity (BMI 30-39.9) Osteoarthritis of knees, bilateral Pure hypercholesterolemia Vitamin B12 deficiency Vitamin D deficiency Family History Family History Father Diabetes Mother Hypertension High cholesterol Family history of thyroid problem Paternal Grandfather Leukemia Surgical History Surgical History (Updated 09/15/21 @ 14:52 by Mouna Montejo RN) H/O colonoscopy History of section History of eye surgery History of hysteroscopy History of pubovaginal sling History of suburethral sling procedure (~05/07/12) History of tonsillectomy History of tubal ligation Hx of dilation and curettage Ingrown toenail of left foot Social History Social History Housing: Apartment Alcohol intake: never Patient Tobacco Use Status: Never used Tobacco e-Cigarette/Vaping Use: Never Used Second Hand Smoke Exposure: Yes Use of substances other than those prescribed or required for medical reasons: No Have you been hit, kicked, punched, or otherwise hurt by someone within the past year? If so, by whom?: No Are you DNR?: No Advance Directives: No Advance Directives Information Provided: Yes (brochure mailed) Advance Directives on File: No Recently lost weight without trying: No Eating poorly because of decreased appetite: No Nutrition Risks: No Nutritional Risk service: No Current occupational status: disabled Meds Allergies Allergy/AdvReac Type Severity Reaction Status Date / Time aspirin [ASPIRIN] Allergy Intermediate ITCH, Verified 09/21/21 09:16 hives, Hives diphenhydramine Allergy Intermediate hives Verified 09/21/21 09:16 [From Benadryl] dog dander [DOG] Allergy Intermediate SINUS Verified 09/21/21 09:16 PROBLEMS latex [LATEX] Allergy Intermediate ITCHY Verified 09/21/21 09:16 Penicillins [PENICILLINS] Allergy Intermediate FAINT Verified 09/21/21 09:16 Sulfa (Sulfonamide Allergy Intermediate nausea, Verified 09/21/21 09:16 Antibiotics) vomiting, myalgia, headache oxybutynin Allergy Unknown unknown Verified 09/21/21 09:16 gabapentin AdvReac Intermediate difficulty Verified 09/21/21 09:16 sleeping ENVIRONMENTAL Allergy Intermediate SINUS Uncoded 07/21/21 16:27 PROBLEMS Exam Exam Date and Time: September 20, 2021 0826 Height,Weight and Vital Signs: Height 5 ft 6 in Weight 109.769 kg Pertinent Lab Results Pertinent Lab Results: Laboratory Tests 06/20/21 06/20/21 10:34 10:34 WBC 8.3 Hgb 12.7 Hct 40.3 Plt Count 319 Sodium 140 Potassium 4.9 Chloride 102 Carbon Dioxide 31 H BUN 15 Creatinine 0.77 Assessment and Plan Assessment Anesthesia Assessment: Chart Reviewed
--- NOTE | 2021-09-21 09:26 | MHC.SHP ---
Pre-Procedural Eval Section A Date of Service: 09/21/21 The patient is an INPATIENT: No Changes since office visit: Yes Patient answered all questions; No Cold of Flu in the past 2 weeks, No New Medical Problems and No Changes in Medication The History & Physical has been completed within 30 days and I have reviewed it.: Yes Section B Chief Complaint: Benign lipomatous neoplasm of skin and sub tissue Allergies: Allergies Allergy/AdvReac Type Severity Reaction Status Date / Time aspirin [ASPIRIN] Allergy Intermediate ITCH, Verified 09/21/21 09:16 hives, Hives diphenhydramine Allergy Intermediate hives Verified 09/21/21 09:16 [From Benadryl] dog dander [DOG] Allergy Intermediate SINUS Verified 09/21/21 09:16 PROBLEMS latex [LATEX] Allergy Intermediate ITCHY Verified 09/21/21 09:16 Penicillins [PENICILLINS] Allergy Intermediate FAINT Verified 09/21/21 09:16 Sulfa (Sulfonamide Allergy Intermediate nausea, Verified 09/21/21 09:16 Antibiotics) vomiting, myalgia, headache oxybutynin Allergy Unknown unknown Verified 09/21/21 09:16 gabapentin AdvReac Intermediate difficulty Verified 09/21/21 09:16 sleeping ENVIRONMENTAL Allergy Intermediate SINUS Uncoded 07/21/21 16:27 PROBLEMS Plan Diagnosis/Plan: Unchanged I have reviewed the history and physical and performed a pertinent physical examination on my patient. No changes have occurred unless specified.
[2021-09-21 09:35] LABS: Glucose, Whole Blood 432 mg/dL (60-115)
--- NOTE | 2021-09-21 09:37 | PC.NURSE ---
Patient arrived to preop. Blood Sugar 432. Dr. Kendrick made aware. Per her, case cancelled. Dr. Bowden at bedside. Patient states she has an appointment with Dr. Domínguez (PCP) on 09/27. Dr. Bowden to notify him of patients blood sugar result. Patient to reschedule once this reevaluated. Dr. Wilson made aware.
== END ==
PROVIDERS: PCP Internal Medicine; Visit Provider Surgery
DX: D17.1 Benign lipomatous neoplasm of skin and subcutaneous tissue of trunk (principal); Z53.09 Procedure and treatment not carried out because of other contraindication; E11.9 Type 2 diabetes mellitus without complications; I10 Essential (primary) hypertension; Z79.84 Long term (current) use of oral hypoglycemic drugs; Z79.899 Other long term (current) drug therapy; Z88.0 Allergy status to penicillin; Z88.2 Allergy status to sulfonamides; Z88.8 Allergy status to other drugs, medicaments and biological substances; Z91.040 Latex allergy status
CPT/HCPCS: 82947

== ENCOUNTER 2021-10-18 09:41 | Outpatient (REF) | payer OTHER, SELFPAY ==
--- NOTE | ~2021-10-18 | MM_ITS ---
EXAMINATION: MM SCREENING DIGITAL BREAST TOMOSYNTHESIS, BILATERAL CLINICAL INFORMATION: Screening. Asymptomatic. The lifetime risk of breast cancer based on the Tyrer-Cuzick Model is 10.2%. COMPARISON: Mammography: September 20, 2020 and studies dating back to October 17, 2011 TECHNIQUE: Digital breast tomosynthesis is performed in both the craniocaudal and mediolateral oblique views along with computer-aided detection (CAD). Synthesized 2D images are generated from the tomosynthesis. FINDINGS: There are scattered areas of fibroglandular density (ACR BI-RADS breast composition Category b). There are no significant masses, abnormal calcifications, or other abnormalities. MM/MM tomosynthesis screening BI IMPRESSION: There are no significant changes from prior study. ASSESSMENT: BI-RADS 1: Negative RECOMMENDATION: Routine annual mammography screening. This patient's information was entered into a reminder system with a target due date for their next mammogram.
== END 2021-10-18 09:42 | disposition home or self-care (01) ==
LOC: HO.MAMMO 09:41
PROVIDERS: PCP Internal Medicine; Visit Provider Obstetrics & Gynecology
DX: Z12.31 Encounter for screening mammogram for malignant neoplasm of breast (principal)
CPT/HCPCS: 77063; 77067

== ENCOUNTER 2021-11-14 09:38 | Outpatient (REF) | payer OTHER, SELFPAY ==
[2021-11-14 09:51] LABS: MANUAL DIFF FLAG NO
[2021-11-14 11:09] LABS: Basophils Percent Auto 0.5 % (0-2); Eosinophils Absolute Auto 0.1 X10*3/uL (0.0-0.4); Eosinophils Percent Auto 1.2 % (0-4); Hematocrit 40.7 % (37.0-47.0); Hemoglobin 12.8 g/dl (12.0-16.0); Imm Gran Abs Auto 0.06 X10*3/uL (0.00-0.03); Imm Gran Pct Auto 0.7 % (0.0-0.4); Lymphocytes Absolute Auto 3.3 X10*3/uL (1.2-4.9); Lymphocytes Percent Auto 38.5 % (20-40); Mean Corpuscular HGB Conc 31.4 g/dl (31.0-35.0); Mean Corpuscular Hemoglobin 27.5 pg (27.0-33.0); Mean Corpuscular Volume 87.5 fL (80.0-98.0); Mean Platelet Volume 9.9 fL (9.4-12.3); Monocytes Absolute Auto 0.6 X10*3/uL (0.1-1.2); Neutrophils Absolute Auto 4.5 x10*3/uL (2.0-8.3); Neutrophils Percent Auto 52.1 % (45-73); Platelet Count 299 X10*3/uL (160-400); Red Blood Count 4.65 X10*6/uL (4.20-5.50); Red Cell Distribution Width 13.9 % (11.0-16.0); White Blood Count 8.7 X10*3/uL (4.8-10.8)
[2021-11-14 11:14] LABS: Estimated Average Glucose 235 mg/dL; Hemoglobin A1c % 9.8 %
[2021-11-14 11:47] LABS: Appearance Urine HAZY; Color Urine YELLOW; Glucose Urine UA 500 MG/DL (NEG); Leukocyte Esterase Urine NEG (NEG); Nitrite Urine NEG (NEG); Urine Blood NEG (NEG); Urine Ketones 5 MG/DL (NEG); Urine Protein NEG (NEG-TRACE)
[2021-11-14 11:52] LABS: Alanine Aminotransferase 21 U/L (0-31); Albumin Level 4.2 g/dL (3.5-5.0); Alkaline Phosphatase 84 U/L (39-117); Anion Gap 16 (12-20); Aspartate Amino Transferase 16 U/L (5-31); Bilirubin Total 0.2 mg/dL (0.0-1.0); Blood Urea Nitrogen 10 mg/dL (9-16); Calcium 9.4 mg/dL (8.4-10.2); Carbon Dioxide 27 mmol/L (22-29); Chloride 101 mmol/L (96-108); Cholesterol 193 mg/dL; Estimated Glomerular Filt Rate > 60; Glucose Fasting 214 mg/dL (60-99); HDL Cholesterol 38 mg/dL; LDL Cholesterol Calculated 105 mg/dl; Potassium 4.6 mmol/L (3.3-5.1); Sodium 139 mmol/L (135-145); Total Protein 7.3 g/dL (6.5-8.0); Triglycerides 254 mg/dL
[2021-11-14 11:56] LABS: TSH reflex Free T4 0.96 uIU/mL (0.32-4.0); Vitamin D 25-OH Total 37.5 ng/mL (>30)
[2021-11-14 12:01] LABS: Folate 13.3 ng/mL (> or = 4.0); Vitamin B12 658 pg/mL (200-900)
[2021-11-14 12:49] LABS: Creatinine Urine 128.28 mg/dL; Microalbum/Creatinine Ratio Ur 13.2 ug/mg cr
== END 2021-11-14 09:39 | disposition home or self-care (01) ==
LOC: HO.LAB 09:38
PROVIDERS: PCP Internal Medicine; Visit Provider Internal Medicine
DX: E11.9 Type 2 diabetes mellitus without complications (principal); I10 Essential (primary) hypertension; K21.9 Gastro-esophageal reflux disease without esophagitis; E78.00 Pure hypercholesterolemia, unspecified; E53.8 Deficiency of other specified B group vitamins; E66.9 Obesity, unspecified; E55.9 Vitamin D deficiency, unspecified
CPT/HCPCS: 36415; 80053; 80061; 81003; 82043; 82306; 82607; 82746; 83036; 84443; 85025

== ENCOUNTER 2021-11-28 10:20 | Outpatient (REF) | payer OTHER, SELFPAY ==
[2021-11-28 10:38] LABS: MANUAL DIFF FLAG NO
[2021-11-28 10:56] LABS: Appearance Urine CLEAR; Color Urine YELLOW; Glucose Urine UA >=1000 MG/DL (NEG); Leukocyte Esterase Urine NEG (NEG); Nitrite Urine NEG (NEG); PH 5.5 (5.0-8.0); Specific Gravity - Urine 1.025 (1.005-1.025); Urine Blood NEG (NEG); Urine Ketones 15 MG/DL (NEG); Urine Protein NEG (NEG-TRACE)
[2021-11-28 10:57] LABS: Basophils Absolute Auto 0.1 X10*3/uL (0.0-0.2); Basophils Percent Auto 0.6 % (0-2); Eosinophils Absolute Auto 0.1 X10*3/uL (0.0-0.4); Hematocrit 40.3 % (37.0-47.0); Hemoglobin 13.2 g/dl (12.0-16.0); Imm Gran Abs Auto 0.11 X10*3/uL (0.00-0.03); Imm Gran Pct Auto 1.1 % (0.0-0.4); Lymphocytes Absolute Auto 2.9 X10*3/uL (1.2-4.9); Lymphocytes Percent Auto 30.2 % (20-40); Mean Corpuscular HGB Conc 32.8 g/dl (31.0-35.0); Mean Corpuscular Hemoglobin 28.6 pg (27.0-33.0); Mean Corpuscular Volume 87.2 fL (80.0-98.0); Mean Platelet Volume 9.5 fL (9.4-12.3); Monocytes Absolute Auto 0.6 X10*3/uL (0.1-1.2); Monocytes Percent Auto 6.2 % (2-11); Neutrophils Absolute Auto 5.9 x10*3/uL (2.0-8.3); Neutrophils Percent Auto 60.9 % (45-73); Platelet Count 300 X10*3/uL (160-400); Red Blood Count 4.62 X10*6/uL (4.20-5.50); Red Cell Distribution Width 13.6 % (11.0-16.0); White Blood Count 9.7 X10*3/uL (4.8-10.8)
[2021-11-28 11:04] LABS: Estimated Average Glucose 226 mg/dL; Hemoglobin A1c % 9.5 %
[2021-11-28 11:07] LABS: Bacteria Urine 1+ /LPF; Squamous Epithelial Cell Urine 2+ /LPF
[2021-11-28 11:08] LABS: RBC Urine 0 /HPF (0); WBC Urine 0-2 /HPF (0-4)
[2021-11-28 11:28] LABS: Alanine Aminotransferase 21 U/L (0-31); Albumin Level 4.4 g/dL (3.5-5.0); Alkaline Phosphatase 82 U/L (39-117); Anion Gap 14 (12-20); Aspartate Amino Transferase 14 U/L (5-31); Bilirubin Total 0.3 mg/dL (0.0-1.0); Blood Urea Nitrogen 17 mg/dL (9-16); Calcium 9.6 mg/dL (8.4-10.2); Carbon Dioxide 26 mmol/L (22-29); Chloride 101 mmol/L (96-108); Cholesterol 185 mg/dL; Estimated Glomerular Filt Rate > 60; Glucose Fasting 236 mg/dL (60-99); HDL Cholesterol 38 mg/dL; LDL Cholesterol Calculated 91 mg/dl; Potassium 4.5 mmol/L (3.3-5.1); Sodium 136 mmol/L (135-145); Total Protein 7.5 g/dL (6.5-8.0); Triglycerides 282 mg/dL
[2021-11-28 11:51] LABS: TSH reflex Free T4 1.08 uIU/mL (0.32-4.0); Vitamin D 25-OH Total 37.6 ng/mL (>30)
[2021-11-28 13:07] LABS: Creatinine Urine 89.17 mg/dL; Microalbum/Creatinine Ratio Ur 14.5 ug/mg cr
[2021-12-02 21:22] LABS: Glutamic acid decarboxylase Ab <5 IU/mL (<5)
== END 2021-11-28 10:21 | disposition home or self-care (01) ==
LOC: HO.LAB 10:20
PROVIDERS: PCP Internal Medicine; Visit Provider Internal Medicine
DX: E78.00 Pure hypercholesterolemia, unspecified (principal); E11.9 Type 2 diabetes mellitus without complications; I10 Essential (primary) hypertension; E55.9 Vitamin D deficiency, unspecified
CPT/HCPCS: 36415; 80053; 80061; 81001; 82043; 82306; 83036; 84443; 84681; 85025; 86341

== ENCOUNTER 2022-03-13 07:11 | Outpatient (REF) | payer OTHER, SELFPAY ==
[2022-03-13 07:32] LABS: MANUAL DIFF FLAG NO
[2022-03-13 08:25] LABS: Basophils Absolute Auto 0.1 X10*3/uL (0.0-0.2); Basophils Percent Auto 0.7 % (0-2); Eosinophils Absolute Auto 0.1 X10*3/uL (0.0-0.4); Eosinophils Percent Auto 1.2 % (0-4); Hematocrit 39.8 % (37.0-47.0); Hemoglobin 12.8 g/dl (12.0-16.0); Imm Gran Abs Auto 0.08 X10*3/uL (0.00-0.03); Imm Gran Pct Auto 0.8 % (0.0-0.4); Lymphocytes Absolute Auto 3.6 X10*3/uL (1.2-4.9); Lymphocytes Percent Auto 37.2 % (20-40); Mean Corpuscular HGB Conc 32.2 g/dl (31.0-35.0); Mean Corpuscular Hemoglobin 28.3 pg (27.0-33.0); Mean Corpuscular Volume 88.1 fL (80.0-98.0); Mean Platelet Volume 9.4 fL (9.4-12.3); Monocytes Absolute Auto 0.7 X10*3/uL (0.1-1.2); Monocytes Percent Auto 7.1 % (2-11); Neutrophils Absolute Auto 5.1 x10*3/uL (2.0-8.3); Platelet Count 335 X10*3/uL (160-400); Red Blood Count 4.52 X10*6/uL (4.20-5.50); Red Cell Distribution Width 13.2 % (11.0-16.0); White Blood Count 9.7 X10*3/uL (4.8-10.8)
[2022-03-13 10:09] LABS: Estimated Average Glucose 177 mg/dL; Hemoglobin A1c % 7.8 %
[2022-03-13 10:11] LABS: Alanine Aminotransferase 13 U/L (0-31); Albumin Level 4.2 g/dL (3.5-5.0); Alkaline Phosphatase 79 U/L (39-117); Anion Gap 17 (12-20); Aspartate Amino Transferase 13 U/L (5-31); Bilirubin Total 0.3 mg/dL (0.0-1.0); Blood Urea Nitrogen 15 mg/dL (9-16); Calcium 9.6 mg/dL (8.4-10.2); Carbon Dioxide 26 mmol/L (22-29); Chloride 101 mmol/L (96-108); Cholesterol 182 mg/dL; Estimated Glomerular Filt Rate > 60; Glucose Fasting 197 mg/dL (60-99); HDL Cholesterol 36 mg/dL; LDL Cholesterol Calculated 106 mg/dl; Potassium 4.6 mmol/L (3.3-5.1); Sodium 139 mmol/L (135-145); Total Protein 7.3 g/dL (6.5-8.0); Triglycerides 204 mg/dL
[2022-03-13 10:34] LABS: TSH reflex Free T4 1.77 uIU/mL (0.32-4.0); Vitamin D 25-OH Total 38.3 ng/mL (>30)
== END 2022-03-13 07:12 | disposition home or self-care (01) ==
LOC: HO.LAB 07:11
PROVIDERS: PCP Internal Medicine; Visit Provider Internal Medicine
DX: E11.9 Type 2 diabetes mellitus without complications (principal); I10 Essential (primary) hypertension; E78.00 Pure hypercholesterolemia, unspecified; E55.9 Vitamin D deficiency, unspecified
CPT/HCPCS: 36415; 80053; 80061; 82306; 83036; 84443; 85025

== ENCOUNTER 2022-06-23 08:58 | Outpatient (REF) | payer OTHER, SELFPAY ==
[2022-06-23 10:08] LABS: MANUAL DIFF FLAG NO
[2022-06-23 10:17] LABS: Basophils Absolute Auto 0.1 X10*3/uL (0.0-0.2); Basophils Percent Auto 0.7 % (0-2); Eosinophils Absolute Auto 0.2 X10*3/uL (0.0-0.4); Eosinophils Percent Auto 1.7 % (0-4); Hemoglobin 13.3 g/dl (12.0-16.0); Imm Gran Abs Auto 0.05 X10*3/uL (0.00-0.03); Imm Gran Pct Auto 0.6 % (0.0-0.4); Lymphocytes Absolute Auto 2.8 X10*3/uL (1.2-4.9); Lymphocytes Percent Auto 32.4 % (20-40); Mean Corpuscular HGB Conc 32.4 g/dl (31.0-35.0); Mean Corpuscular Volume 86.3 fL (80.0-98.0); Mean Platelet Volume 9.3 fL (9.4-12.3); Monocytes Absolute Auto 0.6 X10*3/uL (0.1-1.2); Monocytes Percent Auto 7.1 % (2-11); Neutrophils Percent Auto 57.5 % (45-73); Platelet Count 299 X10*3/uL (160-400); Red Blood Count 4.75 X10*6/uL (4.20-5.50); Red Cell Distribution Width 13.9 % (11.0-16.0); White Blood Count 8.6 X10*3/uL (4.8-10.8)
[2022-06-23 11:31] LABS: Estimated Average Glucose 194 mg/dL; Hemoglobin A1c % 8.4 %
== END 2022-06-23 08:59 | disposition home or self-care (01) ==
LOC: HO.LAB 08:58
PROVIDERS: PCP Internal Medicine; Visit Provider Surgery
DX: D17.1 Benign lipomatous neoplasm of skin and subcutaneous tissue of trunk (principal); E11.65 Type 2 diabetes mellitus with hyperglycemia; E66.9 Obesity, unspecified; J45.40 Moderate persistent asthma, uncomplicated; I10 Essential (primary) hypertension
CPT/HCPCS: 36415; 83036; 85025; 99202

== ENCOUNTER 2022-07-17 09:23 | Outpatient (REF) | payer OTHER, SELFPAY ==
[2022-07-17 09:51] LABS: MANUAL DIFF FLAG NO
[2022-07-17 12:09] LABS: Basophils Absolute Auto 0.1 X10*3/uL (0.0-0.2); Basophils Percent Auto 0.7 % (0-2); Eosinophils Absolute Auto 0.2 X10*3/uL (0.0-0.4); Eosinophils Percent Auto 1.8 % (0-4); Hematocrit 40.3 % (37.0-47.0); Hemoglobin 12.8 g/dl (12.0-16.0); Imm Gran Abs Auto 0.07 X10*3/uL (0.00-0.03); Imm Gran Pct Auto 0.8 % (0.0-0.4); Lymphocytes Absolute Auto 3.2 X10*3/uL (1.2-4.9); Lymphocytes Percent Auto 35.3 % (20-40); Mean Corpuscular HGB Conc 31.8 g/dl (31.0-35.0); Mean Corpuscular Hemoglobin 28.2 pg (27.0-33.0); Mean Corpuscular Volume 88.8 fL (80.0-98.0); Mean Platelet Volume 9.8 fL (9.4-12.3); Monocytes Absolute Auto 0.7 X10*3/uL (0.1-1.2); Monocytes Percent Auto 7.5 % (2-11); Neutrophils Absolute Auto 4.9 x10*3/uL (2.0-8.3); Neutrophils Percent Auto 53.9 % (45-73); Platelet Count 321 X10*3/uL (160-400); Red Blood Count 4.54 X10*6/uL (4.20-5.50); Red Cell Distribution Width 13.9 % (11.0-16.0)
[2022-07-17 12:16] LABS: Appearance Urine Clear; Color Urine Yellow; Glucose Urine UA 250 mg/dL (Negative); Leukocyte Esterase Urine Negative (Negative); Nitrite Urine Negative (Negative); Specific Gravity - Urine >= 1.030 (1.005-1.025); Urine Blood Negative (Negative); Urine Ketones Trace mg/dL (Negative); Urine Protein Trace mg/dL (Neg-Trace)
[2022-07-17 12:38] LABS: Estimated Average Glucose 200 mg/dL; Hemoglobin A1c % 8.6 %
[2022-07-17 12:44] LABS: Creatinine Urine 164.69 mg/dL; Microalbum/Creatinine Ratio Ur 24.2 ug/mg cr
[2022-07-17 12:59] LABS: Alanine Aminotransferase 18 U/L (0-31); Alkaline Phosphatase 78 U/L (39-117); Anion Gap 15 (12-20); Aspartate Amino Transferase 15 U/L (5-31); Bilirubin Total 0.5 mg/dL (0.0-1.0); Blood Urea Nitrogen 14 mg/dL (9-16); Carbon Dioxide 28 mmol/L (22-29); Chloride 104 mmol/L (96-108); Cholesterol 196 mg/dL; Estimated Glomerular Filt Rate > 60; Glucose Random 181 mg/dL (60-115); HDL Cholesterol 38 mg/dL; LDL Cholesterol Calculated 120 mg/dl; Potassium 4.7 mmol/L (3.3-5.1); Sodium 142 mmol/L (135-145); Total Protein 7.1 g/dL (6.5-8.0); Triglycerides 193 mg/dL
[2022-07-17 13:25] LABS: TSH reflex Free T4 1.87 uIU/mL (0.32-4.0); Vitamin D 25-OH Total 34.3 ng/mL (>30)
== END 2022-07-17 09:24 | disposition home or self-care (01) ==
LOC: HO.LAB 09:23
PROVIDERS: PCP Internal Medicine; Visit Provider Internal Medicine
DX: R30.0 Dysuria (principal); E78.00 Pure hypercholesterolemia, unspecified; E55.9 Vitamin D deficiency, unspecified; I10 Essential (primary) hypertension; E11.65 Type 2 diabetes mellitus with hyperglycemia; E66.9 Obesity, unspecified; J45.40 Moderate persistent asthma, uncomplicated
CPT/HCPCS: 36415; 80053; 80061; 81003; 82043; 82306; 83036; 84443; 85025

== ENCOUNTER → 2022-10-12 10:09 | Outpatient (BNVA) | payer OTHER, SELFPAY | PROVIDERS: PCP Internal Medicine; Visit Provider Internal Medicine Endocrinology, Diabetes & Metabolism | DX: E11.9 Type 2 diabetes mellitus without complications (principal) | CPT/HCPCS: 82947; 83036; 99202 ==

== ENCOUNTER 2022-10-19 08:54 | Outpatient (REF) | payer OTHER, SELFPAY ==
[2022-10-19 09:08] LABS: MANUAL DIFF FLAG NO
[2022-10-19 09:58] LABS: Basophils Absolute Auto 0.1 X10*3/uL (0.0-0.2); Basophils Percent Auto 0.6 % (0-2); Eosinophils Absolute Auto 0.1 X10*3/uL (0.0-0.4); Hematocrit 44.5 % (37.0-47.0); Hemoglobin 14.1 g/dl (12.0-16.0); Imm Gran Abs Auto 0.09 X10*3/uL (0.00-0.03); Imm Gran Pct Auto 0.8 % (0.0-0.4); Lymphocytes Absolute Auto 3.7 X10*3/uL (1.2-4.9); Lymphocytes Percent Auto 33.9 % (20-40); Mean Corpuscular HGB Conc 31.7 g/dl (31.0-35.0); Mean Corpuscular Hemoglobin 28.3 pg (27.0-33.0); Mean Corpuscular Volume 89.2 fL (80.0-98.0); Mean Platelet Volume 9.7 fL (9.4-12.3); Monocytes Absolute Auto 0.7 X10*3/uL (0.1-1.2); Monocytes Percent Auto 6.5 % (2-11); Neutrophils Absolute Auto 6.2 x10*3/uL (2.0-8.3); Neutrophils Percent Auto 57.2 % (45-73); Platelet Count 363 X10*3/uL (160-400); Red Blood Count 4.99 X10*6/uL (4.20-5.50); Red Cell Distribution Width 14.3 % (11.0-16.0); White Blood Count 10.8 X10*3/uL (4.8-10.8)
[2022-10-19 10:10] LABS: Estimated Average Glucose 171 mg/dL; Hemoglobin A1c % 7.6 %
[2022-10-19 10:27] LABS: Appearance Urine Clear; Color Urine Yellow; Glucose Urine UA >=1000 mg/dL (Negative); Leukocyte Esterase Urine Negative (Negative); Nitrite Urine Negative (Negative); PH 6.5 (5.0-9.0); Specific Gravity - Urine >= 1.030 (1.005-1.025); UMIC TRIGGER UACC YES; Urine Blood Negative (Negative); Urine Ketones Trace mg/dL (Negative); Urine Protein Negative (Neg-Trace)
[2022-10-19 10:33] LABS: Alanine Aminotransferase 22 U/L (0-31); Albumin Level 4.8 g/dL (3.5-5.0); Alkaline Phosphatase 76 U/L (39-117); Anion Gap 16 (12-20); Aspartate Amino Transferase 16 U/L (5-31); Bilirubin Total 0.4 mg/dL (0.0-1.0); Blood Urea Nitrogen 13 mg/dL (9-16); Calcium 10.3 mg/dL (8.4-10.2); Carbon Dioxide 30 mmol/L (22-29); Chloride 101 mmol/L (96-108); Cholesterol 178 mg/dL; Estimated Glomerular Filt Rate > 60; Glucose Fasting 210 mg/dL (60-99); HDL Cholesterol 37 mg/dL; LDL Cholesterol Calculated 112 mg/dl; Potassium 5.1 mmol/L (3.3-5.1); Sodium 142 mmol/L (135-145); Total Protein 8.2 g/dL (6.5-8.0); Triglycerides 148 mg/dL
[2022-10-19 10:36] LABS: Bacteria Urine Trace (None Seen); Hyaline Casts Urine 0-2 /LPF (0-2); RBC Urine 0-2 /HPF (0-2); WBC Urine 0-5 /HPF (0-5)
[2022-10-19 10:59] LABS: TSH reflex Free T4 1.48 uIU/mL (0.32-4.0)
[2022-10-19 11:55] LABS: Microalbum/Creatinine Ratio Ur 33.4 ug/mg cr
== END 2022-10-19 08:55 | disposition home or self-care (01) ==
LOC: HO.LAB 08:54
PROVIDERS: PCP Internal Medicine; Visit Provider Internal Medicine
DX: I10 Essential (primary) hypertension (principal); E11.9 Type 2 diabetes mellitus without complications; E78.00 Pure hypercholesterolemia, unspecified
CPT/HCPCS: 36415; 80053; 80061; 81001; 81003; 82043; 83036; 84443; 85025

== ENCOUNTER 2022-10-24 09:36 | Outpatient (REF) | payer OTHER, SELFPAY ==
--- NOTE | ~2022-10-24 | MM_ITS ---
EXAMINATION: MM SCREENING DIGITAL BREAST TOMOSYNTHESIS, BILATERAL CLINICAL INFORMATION: Screening. Asymptomatic. The lifetime risk of breast cancer based on the Tyrer-Cuzick Model is 10%. COMPARISON: Mammography: 10/18/2021, 09/20/2020, 04/12/2018 TECHNIQUE: Digital breast tomosynthesis is performed in both the craniocaudal and mediolateral oblique views along with computer-aided detection (CAD). Synthesized 2D images are generated from the tomosynthesis. Additional bilateral CC views are provided. FINDINGS: There are scattered areas of fibroglandular density (ACR BI-RADS breast composition Category b). There are no significant masses, abnormal calcifications, or other abnormalities. Parenchymal pattern is similar to prior studies. There is no developing density or architectural abnormality. The axilla and skin contours are unremarkable. No significant changes. MM/MM tomosynthesis screening BI IMPRESSION: No mammographic evidence of malignancy. ASSESSMENT: BI-RADS 1: Negative RECOMMENDATION: Routine annual mammography screening. This patient's information was entered into a reminder system with a target due date for their next mammogram.
== END 2022-10-24 09:37 | disposition home or self-care (01) ==
LOC: HO.MAMMO 09:36
PROVIDERS: PCP Internal Medicine; Visit Provider Internal Medicine
DX: Z12.31 Encounter for screening mammogram for malignant neoplasm of breast (principal)
CPT/HCPCS: 77063; 77067

== ENCOUNTER → 2022-11-15 08:41 | Outpatient (BNVA) | payer OTHER, SELFPAY | PROVIDERS: PCP Internal Medicine; Visit Provider Obstetrics & Gynecology ==

== ENCOUNTER 2022-12-04 09:23 | Outpatient (AMB) | payer OTHER, SELFPAY ==
--- NOTE | 2022-12-04 09:41 | A.OFFVIS_ITS ---
Intake VS Expanded 12/04/22 09:43 Height 5 ft 6 in Weight 226 lb 13.69 oz BMI 36.6 Intake Visit Reasons: Type 2DM Allergies aspirin [ASPIRIN] Allergy (Intermediate, Verified 11/15/22 09:24) ITCH, hives diphenhydramine [From Benadryl] Allergy (Intermediate, Verified 11/15/22 09:24) hives latex [LATEX] Allergy (Intermediate, Verified 11/15/22 09:24) Itching oxybutynin Allergy (Unknown, Verified 11/15/22 09:24) unknown dog dander [DOG] Adverse Reaction (Intermediate, Verified 11/15/22 09:24) sinus problems environmental allergies Adverse Reaction (Intermediate, Verified 11/15/22 09:24) sinus problems gabapentin Adverse Reaction (Intermediate, Verified 11/15/22 09:24) difficulty sleeping Penicillins [PENICILLINS] Adverse Reaction (Intermediate, Verified 11/15/22 09:24) Faint Sulfa (Sulfonamide Antibiotics) Adverse Reaction (Intermediate, Verified 11/15/22 09:24) nausea, vomiting, myalgia, headache HPI Nutrition Presentation Details Pt presents for MNT for T2DM. Pt was referred by Dr. Hernandez , endocr inologist Typical meal intake: 8-9 am Coffee with sugar 1 1/2 tbsp 12 : oatmeal with brown sugar 2 packs water 4 pm :2 c rice with 2 fried egg or with fried chicken, water snack : banana or milk with chocolate , chips, crackers Coffee per day once Water: 6 cups fruits: 2 /day vegetables 1-2 servings x/wk milk/dairy: 1-2 x/wk with chocolate fish: 0- 1 x/wk protein 4-6 oz/d starches > 15 serving/d physical activity: daily life activities ETOH/CIG: denies VIY-Tvfrvaf-Fl.Jeor Equation Height 5 ft 6 in Weight 227 lb Resting Metabolic Rate 1615.26 Calculated Activity Level Sedentary Calories Needed to Maintain Weight 1938.31 Diagnosis Nutrition problem #1 food nutri know defi As related to (etiology) #1 diagnosis As evidenced by (sign/symptom) #1 knowledge deficit of diet Monitoring/Goals Nutrition problem monitoring level of knowledge/skill and total CHO intake Nutrition goal/outcome list 3 CHO foods and wt loss 5lbs in 2 months Learning/Education Readiness to learn good Stages of change pre-contemplation Educational materials provided Yes (meal planning) Most Recent Diabetes Results: Microalb/Creat Ratio 33.4 ug/mg cr 10/19/22 Cholesterol 178 mg/dL 10/19/22 HDL Cholesterol 37 mg/dL 10/19/22 Triglycerides 148 mg/dL 10/19/22 Creatinine 0.82 mg/dL (0.5-1.4) 10/19/22 Blood Urea Nitrogen 13 mg/dL (9-16) 10/19/22 Sodium 142 mmol/L (135-145) 10/19/22 Potassium 5.1 mmol/L (3.3-5.1) 10/19/22 Chloride 101 mmol/L (96-108) 10/19/22 Carbon Dioxide 30 mmol/L (22-29) H 10/19/22 Calcium 10.3 mg/dL (8.4-10.2) H 10/19/22 AST 16 U/L (5-31) 10/19/22 ALT 22 U/L (0-31) 10/19/22 Total Protein 8.2 g/dL (6.5-8.0) H 10/19/22 Albumin 4.8 g/dL (3.5-5.0) 10/19/22 [facility] Medical History Anxiety Asthma Benign essential hypertension COVID-19 vaccine series completed Depression Diabetes mellitus GERD (gastroesophageal reflux disease) Hearing impairment Insomnia Lumbar degenerative disc disease Migraine Obesity (BMI 30-39.9) Osteoarthritis of knees, bilateral Pure hypercholesterolemia Uncontrolled type 2 diabetes mellitus with hyperglycemia Vitamin B12 deficiency Vitamin D deficiency Surgical History H/O colonoscopy History of section History of eye surgery History of hysteroscopy History of pubovaginal sling History of suburethral sling procedure (~05/07/12) History of tonsillectomy History of tubal ligation Hx of dilation and curettage Ingrown toenail of left foot Family History Father Diabetes Mother Hypertension High cholesterol Family history of thyroid problem Paternal Grandfather Leukemia Social History (Reviewed 11/15/22 @ 09:26 by LIZZ Mar Housing: Apartment Alcohol intake: never Patient Tobacco Use Status: Never used Tobacco e-Cigarette/Vaping Use: Never Used Second Hand Smoke Exposure: Yes service: No Current occupational status: disabled Cognitive needs: No Hearing needs: Yes Vision needs: Yes Female Reproductive History Menstrual Age of Menarche: 13 Assessment & Plan Assessment & Plan (1) Uncontrolled type 2 diabetes mellitus with hyperglycemia: Code(s): E11.65 - Type 2 diabetes mellitus with hyperglycemia Plan: used wt : 103 kg Est kcal needs as per MSJ: 1900 (40% carb, 30% protein/fat) Est fluid needs as per 25-30 ml/d: 2579- 3090 Est prot per day as per 1 g/kg bw: 103 g Recommend fiber intake : 8-10 g per day and gradually increase to 25-28 g as tolerated Recommend sodium intake per day : less than 2000 mg Educated patient on: ( R = reviewed V = verbalizes understanding N/R = needs review N/A = not applicable * Food sources of carbohydrate, adequate serving sizes and its role in various health conditions: R * Differences between complex carbohydrates a simple carbohydrates, role of fiber in diet: R * Differences between types of fats and role in diet (mono on saturated fat fatty acids, saturated fatty acids, trans fats): R , basic * Food sources of sodium in salt and healthy modifications for heart health in kidney health: NR * Vitamins and minerals: NR * Healthy plate method concept: R * Physical activity: Benefits a precaution: R * Hypoglycemia protocol (rule of 15): R * Dietary prevention of Hyperglycemia: R Patient Instructions: Choose whole grain foods, increasing on fiber in your diet Reduce total carb at dinner to 45-60 g for now, following healthy plate method Reduce on empty calorie foods (pastries /chips and similar foods) Drink water with meals Coding Level of Care Code Nutr Indiv Intake (78855) Diagnoses Uncontrolled type 2 diabetes mellitus with hyperglycemia E11.65 Time Spent (min) 40
[2022-12-04 09:43] VITALS: BMI 36.6
[2022-12-04 12:44] VITALS: BMI 36.6
== END 2022-12-04 10:19 | disposition home or self-care (01) ==
PROVIDERS: PCP Internal Medicine; Visit Provider Dietitian, Registered
DX: E11.65 Type 2 diabetes mellitus with hyperglycemia (principal)

== ENCOUNTER → 2022-12-04 09:23 | Outpatient (BNVA) | payer OTHER, SELFPAY | PROVIDERS: Visit Provider Dietitian, Registered | DX: E11.65 Type 2 diabetes mellitus with hyperglycemia (principal) | CPT/HCPCS: 97802 ==

== ENCOUNTER 2022-12-18 09:06 | Outpatient (AMB) | payer OTHER, SELFPAY ==
--- NOTE | 2022-12-18 10:17 | A.OFFVIS_ITS ---
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: No Accompanied by: Self / Same As Patient Allergies aspirin [ASPIRIN] Allergy (Intermediate, Verified 11/15/22 09:24) ITCH, hives diphenhydramine [From Benadryl] Allergy (Intermediate, Verified 11/15/22 09:24) hives latex [LATEX] Allergy (Intermediate, Verified 11/15/22 09:24) Itching oxybutynin Allergy (Unknown, Verified 11/15/22 09:24) unknown dog dander [DOG] Adverse Reaction (Intermediate, Verified 11/15/22 09:24) sinus problems environmental allergies Adverse Reaction (Intermediate, Verified 11/15/22 09:24) sinus problems gabapentin Adverse Reaction (Intermediate, Verified 11/15/22 09:24) difficulty sleeping Penicillins [PENICILLINS] Adverse Reaction (Intermediate, Verified 11/15/22 09:24) Faint Sulfa (Sulfonamide Antibiotics) Adverse Reaction (Intermediate, Verified 0 11/15/22 09:24) nausea, vomiting, myalgia, headache HPI Comprehensive Diabetes Asmnt Most Recent Diabetes Results: Microalb/Creat Ratio 33.4 ug/mg cr 10/19/22 Cholesterol 178 mg/dL 10/19/22 HDL Cholesterol 37 mg/dL 10/19/22 Triglycerides 148 mg/dL 10/19/22 Creatinine 0.82 mg/dL (0.5-1.4) 10/19/22 Blood Urea Nitrogen 13 mg/dL (9-16) 10/19/22 Sodium 142 mmol/L (135-145) 10/19/22 Potassium 5.1 mmol/L (3.3-5.1) 10/19/22 Chloride 101 mmol/L (96-108) 10/19/22 Carbon Dioxide 30 mmol/L (22-29) H 10/19/22 Calcium 10.3 mg/dL (8.4-10.2) H 10/19/22 AST 16 U/L (5-31) 10/19/22 ALT 22 U/L (0-31) 10/19/22 Total Protein 8.2 g/dL (6.5-8.0) H 10/19/22 Albumin 4.8 g/dL (3.5-5.0) 10/19/22 [facility] Medical History Anxiety Asthma Benign essential hypertension COVID-19 vaccine series completed Depression Diabetes mellitus GERD (gastroesophageal reflux disease) Hearing impairment Insomnia Lumbar degenerative disc disease Migraine Obesity (BMI 30-39.9) Osteoarthritis of knees, bilateral Pure hypercholesterolemia Uncontrolled type 2 diabetes mellitus with hyperglycemia Vitamin B12 deficiency Vitamin D deficiency Surgical History H/O colonoscopy History of section History of eye surgery History of hysteroscopy History of pubovaginal sling History of suburethral sling procedure (~05/07/12) History of tonsillectomy History of tubal ligation Hx of dilation and curettage Ingrown toenail of left foot Family History Father Diabetes Mother Hypertension High cholesterol Family history of thyroid problem Paternal Grandfather Leukemia Social History Housing: Apartment Alcohol intake: never Patient Tobacco Use Status: Never used Tobacco e-Cigarette/Vaping Use: Never Used Second Hand Smoke Exposure: Yes service: No Current occupational status: disabled Cognitive needs: No Hearing needs: Yes Vision needs: Yes Female Reproductive History Menstrual Age of Menarche: 13 Assessment & Plan Assessment & Plan (1) Diabetes mellitus with hyperglycemia: Code(s): E11.65 - Type 2 diabetes mellitus with hyperglycemia Plan: Diabetes self-management education and support participation record Assessment/scale: 1= needs instructed? 2= needs review? 3= comprehend keep point? 4= demonstrates understanding/ competent? NC= Not Covered Topics Learning Objective: Initial visit Initial or post srvc Initial or post srvc Initial or post srvc Initial or post srvc Initial or post srvc Post srvc Comments Pre Edu-assessment/plan Outcome or reassess Outcome or reassess Outcome or reassess Outcome or reassess Outcome or reassess Outcome or reassess Diabetes pathophysiology 1 Healthy eating 2 Being active 2 Taking medication 1 Monitoring glucose 2 Acute complication Chronic complicated 1 Lifestyle and healthy coping Diabetes distress in support ?Diabetes pathophysiology: ?Defined diabetes med identify own type of diabetes; list 3 options for treating diabetes Healthy eating: ?Described effect of type, amount and ?timing of food on blood glucose; list 3 methods for planning meal Being active: ?State effect of exercise on blood glucose level Taking medication: ?State effect of diabetes medications on diabetes; name diabetes medications taking, action and side effects Monitoring glucose: ?Identify recommended blood glucose targets and personal target Acute complication: ?List symptoms and treatment of hyper and hypoglycemia, DKA, sick day guidelines and guidelines for severe weather or situations of crisis and diabetes supply manage Chronic complication: ?To find the relationship of blood glucose levels to long- term complications of diabetes in screening and preventative measures Lifestyle and healthy coping: ?Described lifestyle and healthy coping strategies to rule out diabetes self-management Diabetes to stress and support: ?Recognize Diabetes to stress and be able to identified support options Learning objectives: The patient was provided with verbal and written education on the following topics as outlined below. The patient met all learning objectives and was able to verbalize understanding and provide teach back of education topics discussed . The patient was provided with the opportunity to ask questions and all questions were answered. Patient Assessment Assess patient education level/literacy/barriers Patient questions/concerns, patient was diagnosed with type 2 diabetes approximately 5 years ago. Her last A1c was 7.6 on 10/19/2022 Patient is testing her glucose levels 2-4 times daily. What is Diabetes? Pathophysiology How the body produces and uses insulin Identify type of DM Risk factors Signs of Diabetes Brief overview of Diabetes Management Monitoring blood sugar Following a meal plan Regular exercise Maintaining a healthy weight Taking medication as needed Members of the care team (PCP, RN, MA, RD, CDE, transportation logistics internship) Blood glucose monitoring When/how often to test Target blood sugar ranges Fasting glucose range from 131-221 mg/dL Pre lunch 154-207 mg/dL Pre supper 84-220 mg/dL Patient reports that she occasionally checks post meals as well Introduction to Nutrition Importance of healthy diet in managing DM Diet is personalized to individual preference Review patient?s regular diet/food preferences Who prepares meals/does food shopping/ Dining out?/ Barriers? How diet effects glucose Eating 3 balanced meals a day with small, healthy snacks between meals Review food groups Carbohydrates: What is a carbohydrate/Which food/food groups are considered carbohydrates Effect of carbohydrates on blood glucose Portion sizes Reading food labels Basic carb counting (if applicable per nursing assessment) Plate method Meal planning Recommendations: Follow plate method, consistent carbs and read nutritional labels. Smart Goal: Patient will add protein, to breakfast, along with oatmeal Educational Materials: The patient was provided with the following written educational materials: Planning Healthy Meals Handout Patient Response to instructions: Comprehension of Instructions: Fair Readiness to make changes: Contemplation How confident they feel about making changes: Positive Patient Instructions: Include regular daily activity. ADA recommends 30 minutes of exercise 5 days a week. Weight loss talk to PCP or Drop Wire Aligner before starting new plan. Test blood sugar as directed; Fasting and 2hpp largest meal. Watch trends in results. Utilize results and to assess how food, physical activity and medications affect blood sugar results. Bring glucometer or CGM to next visit. Be knowledgeable about diabetes medication, its action, side effects, efficacy, toxicity, prescribed dosage, appropriate timing and frequency of administration, effect of missed and delayed doses and instructions for storage, travel and safety. follow up with diabetes nurse in 3 months Coding Level of Care Code Est Pt Level 1 (72343) Diagnoses Diabetes mellitus with hyperglycemia E11.65
== END 2022-12-18 10:23 | disposition home or self-care (01) ==
PROVIDERS: PCP Internal Medicine; Visit Provider Registered Nurse Diabetes Educator
DX: E11.65 Type 2 diabetes mellitus with hyperglycemia (principal)

== ENCOUNTER → 2022-12-18 09:06 | Outpatient (BNVA) | payer OTHER, SELFPAY | PROVIDERS: Visit Provider Registered Nurse Diabetes Educator | DX: E11.65 Type 2 diabetes mellitus with hyperglycemia (principal) | CPT/HCPCS: 99211 ==

== ENCOUNTER 2023-01-24 08:19 | Outpatient (REF) | payer OTHER, SELFPAY ==
[2023-01-24 08:46] LABS: MANUAL DIFF FLAG NO
[2023-01-24 08:56] LABS: Basophils Absolute Auto 0.1 X10*3/uL (0.0-0.2); Basophils Percent Auto 0.6 % (0-2); Eosinophils Absolute Auto 0.1 X10*3/uL (0.0-0.4); Eosinophils Percent Auto 1.3 % (0-4); Hematocrit 43.4 % (37.0-47.0); Hemoglobin 13.8 g/dl (12.0-16.0); Imm Gran Abs Auto 0.05 X10*3/uL (0.00-0.03); Imm Gran Pct Auto 0.5 % (0.0-0.4); Lymphocytes Absolute Auto 3.3 X10*3/uL (1.2-4.9); Mean Corpuscular HGB Conc 31.8 g/dl (31.0-35.0); Mean Corpuscular Hemoglobin 27.8 pg (27.0-33.0); Mean Corpuscular Volume 87.3 fL (80.0-98.0); Mean Platelet Volume 9.2 fL (9.4-12.3); Monocytes Absolute Auto 0.7 X10*3/uL (0.1-1.2); Monocytes Percent Auto 7.1 % (2-11); Neutrophils Absolute Auto 5.3 x10*3/uL (2.0-8.3); Neutrophils Percent Auto 55.5 % (45-73); Platelet Count 325 X10*3/uL (160-400); Red Blood Count 4.97 X10*6/uL (4.20-5.50); Red Cell Distribution Width 13.9 % (11.0-16.0); White Blood Count 9.5 X10*3/uL (4.8-10.8)
[2023-01-24 09:05] LABS: Estimated Average Glucose 183 mg/dL
[2023-01-24 09:45] LABS: Alanine Aminotransferase 13 U/L (0-31); Albumin Level 4.3 g/dL (3.5-5.0); Alkaline Phosphatase 77 U/L (39-117); Anion Gap 13 (12-20); Aspartate Amino Transferase 12 U/L (5-31); Bilirubin Total 0.3 mg/dL (0.0-1.0); Blood Urea Nitrogen 15 mg/dL (9-16); Calcium 9.7 mg/dL (8.4-10.2); Carbon Dioxide 27 mmol/L (22-29); Chloride 104 mmol/L (96-108); Cholesterol 184 mg/dL (<200); Estimated Glomerular Filt Rate > 60; Glucose Fasting 211 mg/dL (60-99); HDL Cholesterol 42 mg/dL (>40); LDL Cholesterol Calculated 113 mg/dL (<100); Potassium 4.7 mmol/L (3.3-5.1); Sodium 139 mmol/L (135-145); Total Protein 7.7 g/dL (6.5-8.0); Triglycerides 148 mg/dL (<150)
[2023-01-24 10:07] LABS: Folate 12.4 ng/mL (> or = 4.0); Vitamin B12 290 pg/mL (200-900)
[2023-01-24 10:09] LABS: TSH reflex Free T4 1.19 uIU/mL (0.32-4.0); Vitamin D 25-OH Total 50.6 ng/mL (>30)
[2023-01-24 10:19] LABS: Appearance Urine Clear; Color Urine Yellow; Glucose Urine UA >=1000 mg/dL (Negative); Leukocyte Esterase Urine Negative (Negative); Nitrite Urine Negative (Negative); PH 5.5 (5.0-9.0); Specific Gravity - Urine >= 1.030 (1.005-1.025); UMIC TRIGGER UACC YES; Urine Blood Negative (Negative); Urine Ketones Trace mg/dL (Negative); Urine Protein Negative (Neg-Trace)
[2023-01-24 10:24] LABS: Bacteria Urine None Seen (None Seen); Hyaline Casts Urine 0-2 /LPF (0-2); Squamous Epithelial Cell Urine 0-2 /HPF (0-2); WBC Urine 0-5 /HPF (0-5)
[2023-01-24 11:08] LABS: Creatinine Urine 46.24 mg/dL; Microalbum/Creatinine Ratio Ur 12.9 ug/mg cr (<30)
== END 2023-01-24 08:20 | disposition home or self-care (01) ==
LOC: HO.LAB 08:19
PROVIDERS: PCP Internal Medicine; Visit Provider Internal Medicine
DX: E78.00 Pure hypercholesterolemia, unspecified (principal); E11.9 Type 2 diabetes mellitus without complications; E55.9 Vitamin D deficiency, unspecified; E53.8 Deficiency of other specified B group vitamins; I10 Essential (primary) hypertension; R30.0 Dysuria
CPT/HCPCS: 36415; 80053; 80061; 81001; 82043; 82306; 82570; 82607; 82746; 83036; 84443; 85025

== ENCOUNTER 2023-01-25 11:20 | Outpatient (AMB) | payer OTHER, SELFPAY ==
[2023-01-25 11:21] VITALS: BP 118/70; PULSE 91; O2SAT 96; BMI 34.9
--- NOTE | 2023-01-25 11:21 | A.OFFPC_ITS ---
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 Accompanied by: Self / Same As Patient Allergies aspirin [ASPIRIN] Allergy (Intermediate, Verified 01/25/23 11:57) ITCH, hives diphenhydramine [From Benadryl] Allergy (Intermediate, Verified 01/25/23 11:57) hives latex [LATEX] Allergy (Intermediate, Verified 01/25/23 11:57) Itching oxybutynin Allergy (Unknown, Verified 01/25/23 11:57) unknown dog dander [DOG] Adverse Reaction (Intermediate, Verified 01/25/23 11:57) sinus problems environmental allergies Adverse Reaction (Intermediate, Verified 01/25/23 11:57) sinus problems gabapentin Adverse Reaction (Intermediate, Verified 01/25/23 11:57) difficulty sleeping Penicillins [PENICILLINS] Adverse Reaction (Intermediate, Verified 01/25/23 11:57) Faint Sulfa (Sulfonamide Antibiotics) Adverse Reaction (Intermediate, Verified 01/25/23 11:57) nausea, vomiting, myalgia, headache Medication List - Last Reconciled 01/25/23 by Christopher Domínguez MD acetaminophen-codeine 300-30 mg 1 tab PO Q6H PRN 28 days albuterol sulfate 90 mcg/actuation 2 puffs PO Q4H PRN atorvastatin 10 mg PO DAILY blood sugar diagnostic (FreeStyle Lite Strips) 1 strip miscellaneous TID blood-glucose meter (FreeStyle Lite Meter kit) As directed cholecalciferol (vitamin D3) 25 mcg PO DAILY citalopram 40 mg PO DAILY 30 days cyanocobalamin (vitamin B-12) 1,000 mcg PO DAILY cyclobenzaprine 5 mg PO BID PRN docusate sodium (DOK) 100 mg PO DAILY PRN dulaglutide 3 mg (0.5 mL) subcut QWEEK 4 weeks empagliflozin (Jardiance) 25 mg PO DAILY lancets (FreeStyle Lancets) 28 gauge topical TID loratadine (Allergy Relief (loratadine)) 10 mg PO DAILY 30 days lorazepam 0.5 mg PO BEDTIME PRN 30 days metformin 1,000 mg PO BID 90 days nadolol 20 mg PO BEDTIME pantoprazole 40 mg PO DAILY sumatriptan succinate 100 mg PO BID PRN trazodone 100 mg PO BEDTIME PRN 90 days underpads (Goodnites Bed Mats) As directed Tobacco use date assessed: 01/25/23 Dental Screening Dental Screen Date: 01/25/23 Did you have a dental visit in the last 12 months?: Yes Did you have a dental problem in the last 6 months where you did not have access to dental care?: No Was dental information given to patient?: Patient has dentist HPI DM, HTN, hyperlipidemia HPI Details Patient comes in today for her follow up visit States that she feels okay She denies any headaches or dizziness Denies any chest pains, no SOB No nausea/vomiting, no abdominal pain No change in bowel habits noted Had her follow up labs done yesterday - to discuss her results [facility] Medical History Uncontrolled type 2 diabetes mellitus with hyperglycemia COVID-19 vaccine series completed Hearing impairment Obesity (BMI 30-39.9) Depression Anxiety Insomnia Vitamin B12 deficiency Vitamin D deficiency Migraine GERD (gastroesophageal reflux disease) Osteoarthritis of knees, bilateral Lumbar degenerative disc disease Asthma Pure hypercholesterolemia Benign essential hypertension Diabetes mellitus Surgical History Hx of dilation and curettage History of hysteroscopy History of pubovaginal sling H/O colonoscopy History of suburethral sling procedure (~05/07/12) Ingrown toenail of left foot History of section History of eye surgery History of tonsillectomy History of tubal ligation Family History Father Diabetes Mother Hypertension High cholesterol Family history of thyroid problem Paternal Grandfather Leukemia Social History Housing: Apartment Alcohol intake: never Patient Tobacco Use Status: Never used Tobacco e-Cigarette/Vaping Use: Never Used Second Hand Smoke Exposure: Yes service: No Current occupational status: disabled Cognitive needs: No Hearing needs: Yes Vision needs: Yes Female Reproductive History Menstrual Age of Menarche: 13 Questionnaire PHQ-9 Over the last 2 weeks, how often have you been bothered by any of the following problems? 1. Little interest or pleasure in doing things: several days 2. Feeling down, depressed, or hopeless: several days 3. Trouble falling or staying asleep, or sleeping too much: several days 4. Feeling tired or having little energy: several days 5. Poor appetite or overeating: several days 6. Feeling bad about yourself - or that you are a failure or have let yourself or your family down: not at all 7. Trouble concentrating on things, such as reading the newspaper or watching television: not at all 8. Moving or speaking so slowly that other people could have noticed. Or the opposite - being so fidgety or restless that you have been moving around a lot more than usual: not at all 9. Thoughts that you would be better off or of hurting yourself in some way: not at all Total score: 5 Depression Screening Interpretation: Positive Depression Screening Follow-up: Existing condition and In treatment 26369 - PHQ-9 Billing: Yes Source: Developed by Drs. Nii Shah, Leslie Carmona, Gustavo Newton and colleagues, with an educational dani from [employer]. Thrive Questionnaire Date Thrive assessed: 01/25/23 I am a: Patient What is your living situation today?: I have a steady place to live Within the past 12 months, did the food you bought not last and you didn't have the money to get more?: Never true Within the past 12 months, did you worry whether your food would run out before you got money to buy more?: Never true Do you have trouble paying for medicines?: No Do you have trouble getting transportation to medical appointments?: No Do you have trouble paying your heating and electricity bill?: No Do you have trouble taking care of your child, family member or friend?: No Do you have trouble with day-to-day activities such as bathing, preparing meals, shopping, managing finances, etc.?: No Are you currently unemployed and looking for a job?: No Are you interested in more education?: No Please select the resources that you would like help with: None Currently or been in a relationship where the following occur: no concerns reported AUDIT C Alcohol Use Questionnaire (AUDIT-C) 1. How often do you have a drink containing alcohol?: Never 3. How often do you have six or more drinks on one occasion?: Never Total Score: 0 Score Reviewed/Action Taken: Yes SONYA-7 AMB Questionnaire SONYA-7 Date SONYA - 7 assessed: 01/25/23 Feeling nervous, anxious, or on edge: 0 = Not at all Not being able to stop or control worryin = Not at all Worrying too much about different things: 0 = Not at all Trouble relaxin = Not at all Being so restless that it is hard to sit still: 0 = Not at all Becoming easily annoyed or irritable: 0 = Not at all Feeling afraid as if something awful might happen: 0 = Not at all Total SONYA-7 score (0-4 normal; 5-9 mild; 10-14 moderate; 15-21 severe): 0 Source: Developed by Drs. Nii Shah, Leslie Carmona, Gustavo Newton and colleagues, with an educational dani from [employer]. Review of Systems Const Denies chills, Reports fatigue, Denies fever(s), Denies headache(s) and Reports weakness (ONLY when blood sugar readings go below 130 to 140 mg/dl in the morning) ENT Denies dysphagia, Denies dizziness, Denies otalgia, Denies headache(s), Denies neck pain, Denies odynophagia and Denies sore throat Card Denies chest pain, Denies palpitations and Denies dyspnea Resp Denies cough, Denies dyspnea and Denies wheezing GI Denies abdominal pain, Denies constipation, Denies dysphagia, Denies heartburn, Denies diarrhea, Denies nausea, Denies odynophagia and Denies vomiting Denies nocturia, Denies dysuria, Denies urinary hesitancy and Denies urinary urgency Musc Reports back pain (on and off, over the lower back), Reports arthralgias (over both knees) and Denies neck pain Skin/Breast Details: (+) large lipoma on her left lower back Neuro Denies dizziness, Denies headache(s) and Reports weakness (ONLY when blood sugar readings go below 130 to 140 mg/dl in the morning) Psych Denies anxiety Endo Reports fatigue and Denies palpitations Aller/Immun Denies wheezing Physical exam (Primary Care) Vital Signs: Last Vital Signs Pulse 91 01/25/23 11:21 BP 118/70 01/25/23 11:21 Pulse Ox 96 01/25/23 11:21 Oxygen Delivery Method Room Air 01/25/23 11:21 BMI result Body Mass Index 34.9 Tobacco/Smoking Status: Tobacco use Status Tobacco use date assessed 01/25/23 01/25/23 11:28 Patient Tobacco Use Status Never used Tobacco 01/25/23 11:28 e-Cigarette/Vaping Use Never Used 01/25/23 11:28 Depression Screening Interpretation: Positive Depression Screening Follow-up: Existing condition and In treatment Thrive Assessment: Date of Thrive Assessment Date Thrive assessed 01/25/23 01/25/23 11:28 Currently or been in a relationship where the following occur: no concerns reported Const General: no acute distress and alert HENMT Ears: TM's normal bilaterally and EAC's normal Throat: Yes posterior oropharynx normal and Yes tonsils normal (no TP congestion noted) Neck Neck: Yes no lymphadenopathy and Yes supple Resp Auscultation: clear to auscultation bilaterally, no rales and no wheezes Cardio Rate: regular rate Rhythm: regular rhythm Heart sounds: no murmurs GI Palpation (GI): Soft to palpation and nontender Auscultation: normal bowel sounds Back/Spine/Pelvis Thoracic/Lumbar Spine: lumbar spinal tenderness Skin Rashes: no rashes Extrem General: Yes no clubbing, cyanosis or edema Right lower extremity: knee Details: tenderness; no swelling Left lower extremity: knee Details: tenderness; no swelling Assessment and Plan Assessment & Plan (1) Diabetes mellitus: Comment: taking metformin & januvia; Glimepiride added 11/19/20 Code(s): E11.9 - Type 2 diabetes mellitus without complications Qualifiers: Diabetes mellitus type: type 2 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 Diabetes mellitus complication status: without complication Qualified Code(s): E11.9 - Type 2 diabetes mellitus without complications Plan: HgbA1c is at 8.0% on her labs done yesterday (was at 7.6% a few months ago) - goal is at least <7.5%, in light of patient's recent symptoms of dizziness and weakness when her fasting blood sugar dips under 140 mg/dL Reinforced diabetic diet; states that she was on vacation recently and was not compliant with her diet when she was on vacation C-peptide level was normal and SONYA Ab were negative when checked previously Continue Metformin 1000 mg BID, Trulicity 3.0 mg SQ once a week and Jardiance 25 mg QD - was started additionally on Jardiance by Dr. Hernandez a few months ago Patient was taken off Januvia 100 mg QD and Glimepiride 2 mg Q AM over the past year Follow up with endocrinology as scheduled (2) Benign essential hypertension: Code(s): I10 - Essential (primary) hypertension Plan: Reinforced low-sodium diet -? goal is systolic BP of at least 120 to 130 mm or less Advised to continue monitoring her blood pressure regularly (3) Pure hypercholesterolemia: Code(s): E78.00 - Pure hypercholesterolemia, unspecified Plan: Results of her labs done yesterday reviewed and discussed with patient Reinforced low cholesterol diet Continue Atorvastatin 10 mg QD Will recheck her labs and fasting lipids in 3 months for follow-up (4) Asthma: Comment: uses prn albuterol inhaler Code(s): J45.909 - Unspecified asthma, uncomplicated Qualifiers: Asthma severity: moderate Asthma persistence: persistent Asthma complication type: uncomplicated Qualified Code(s): J45.40 - Moderate persistent asthma, uncomplicated Plan: Stable Continue Advair HFA 115-21 mcg 2 puffs twice a day and Albuterol inhaler 2 puffs 4 times a day as needed (5) Migraine: Code(s): G43.909 - Migraine, unspecified, not intractable, without status migrainosus Qualifiers: Migraine type: without aura Status migrainosus presence: without status migrainosus Intractability: not intractable Qualified Code(s): G43.009 - Migraine without aura, not intractable, without status migrainosus Plan: States that her headaches have been stable lately Continue Sumatriptan 100 mg PRN and Nadolol 20 mg daily at bedtime for her headache prophylaxis (6) Lumbar degenerative disc disease: Code(s): M51.36 - Other intervertebral disc degeneration, lumbar region Plan: Reinforced activity and weight lifting restrictions Lumbar spine x-rays done back in 2017 showed (+) lumbar spine facet arthritis Continue Tylenol with codeine (#3) 1 tablet every 6 hours as needed for pain (7) Osteoarthritis of knees, bilateral: Code(s): M17.0 - Bilateral primary osteoarthritis of knee Qualifiers: Osteoarthritis type: primary Qualified Code(s): M17.0 - Bilateral primary osteoarthritis of knee Plan: Continue Acetaminophen PRN for pain Follow-up with Orthopedics as scheduled - gets cortisone injections in her knees as needed for pain relief (8) GERD (gastroesophageal reflux disease): Code(s): K21.9 - Gastro-esophageal reflux disease without esophagitis Qualifiers: Esophagitis presence: without esophagitis Qualified Code(s): K21.9 - Gastro-esophageal reflux disease without esophagitis Plan: Dietary restrictions reinforced Continue Pantoprazole 40 mg daily Patient's recent GI symptoms suggest early gastroparesis even though she had a normal gastric emptying study done back in 2019 Follow up with GI as scheduled (9) Vitamin D deficiency: Code(s): E55.9 - Vitamin D deficiency, unspecified Plan: Continue Vitamin D3 1000 units daily Will recheck Vitamin-D level in 3 months for follow-up (10) Vitamin B12 deficiency: Code(s): E53.8 - Deficiency of other specified B group vitamins Plan: Continue on B12 tablets 1000 mcg QD (11) Lipoma of back: Code(s): D17.1 - Benign lipomatous neoplasm of skin and subcutaneous tissue of trunk Plan: Previous plans for surgical excision were held up due to patient's poorly- controlled DM Have advised patient to check back with Dr. Meadows in a month or two to allow some more time for her diabetes control to improve and to check back with us for preop clearance if needed once she is scheduled again for excision of her large lipoma (12) Insomnia: Code(s): G47.00 - Insomnia, unspecified Qualifiers: Insomnia type: primary Qualified Code(s): F51.01 - Primary insomnia Plan: Sleep hygiene reinforced Continue Trazodone 100 mg daily at bedtime as needed (13) Anxiety: Code(s): F41.9 - Anxiety disorder, unspecified Plan: Continue Lorazepam 0.5 mg once a day at bedtime as needed and Hydroxyzine 10 mg 3 times a day PRN (14) Depression: Code(s): F32.9 - Major depressive disorder, single episode, unspecified Qualifiers: Depression Type: major depressive disorder Major depression recurrence: recurrent Active/Remission status: currently active Major depression episode severity: unspecified Qualified Code(s): F33.9 - Major depressive disorder, recurrent, unspecified Plan: Continue Citalopram 40 mg QD Follow-up with Psychiatry as scheduled (15) Obesity (BMI 30-39.9): Code(s): E66.9 - Obesity, unspecified Plan: Reinforced diet/exercise as tolerated/lose weight Plan Follow up in 3 months Orders: Orders Complete Blood Count Auto Diff 3 Months I10 - Essential (primary) hypertension Comprehensive Dickens. Panel Fast 3 Months E78.00 - Pure hypercholesterolemia, unspecified Hemoglobin A1c 3 Months E11.9 - Type 2 diabetes mellitus without complications UA CC w/rflx Micro + Cult 3 Months R30.0 - Dysuria Vitamin D 25-OH Total 3 Months E55.9 - Vitamin D deficiency, unspecified Lipid Panel 3 Months E78.00 - Pure hypercholesterolemia, unspecified Microalbumin, Random (w Creat) 3 Months E11.9 - Type 2 diabetes mellitus without complications TSH reflex Free T4 3 Months E78.00 - Pure hypercholesterolemia, unspecified Vitamin B12 and Folate 3 Months E53.8 - Deficiency of other specified B group vitamins Coding Level of Care Code Est Pt Level 4 (36556) Diagnoses Type 2 diabetes mellitus without complication, without long-term current use of insulin E11.9 Diabetes mellitus type: type 2 Diabetes mellitus prison insulin use: without prison use Diabetes mellitus complication status: without complication Benign essential hypertension I10 Pure hypercholesterolemia E78.00 Moderate persistent asthma without complication J45.40 Asthma severity: moderate Asthma persistence: persistent Asthma complication type: uncomplicated Migraine without aura and without status migrainosus, not intractable G43.009 Migraine type: without aura Status migrainosus presence: without status migrainosus Intractability: not intractable Lumbar degenerative disc disease M51.36 Primary osteoarthritis of both knees M17.0 Osteoarthritis type: primary Gastroesophageal reflux disease without esophagitis K21.9 Esophagitis presence: without esophagitis Vitamin D deficiency E55.9 Vitamin B12 deficiency E53.8 Lipoma of back D17.1 Primary insomnia F51.01 Insomnia type: primary Anxiety F41.9 Episode of recurrent major depressive disorder, unspecified depression episode severity F33.9 Depression Type: major depressive disorder Major depression recurrence: recurrent Active/Remission status: currently active Major depression episode severity: unspecified Obesity (BMI 30-39.9) E66.9
== END 2023-01-25 12:15 | disposition home or self-care (01) ==
PROVIDERS: PCP Internal Medicine; Visit Provider Internal Medicine
DX: E11.9 Type 2 diabetes mellitus without complications (principal); I10 Essential (primary) hypertension; J45.40 Moderate persistent asthma, uncomplicated; G43.009 Migraine without aura, not intractable, without status migrainosus; K21.9 Gastro-esophageal reflux disease without esophagitis; E55.9 Vitamin D deficiency, unspecified; F41.9 Anxiety disorder, unspecified; F33.9 Major depressive disorder, recurrent, unspecified; E78.00 Pure hypercholesterolemia, unspecified; M51.36 Other intervertebral disc degeneration, lumbar region; M17.0 Bilateral primary osteoarthritis of knee; E53.8 Deficiency of other specified B group vitamins
CPT/HCPCS: 99214

== ENCOUNTER 2023-02-13 09:13 | Outpatient (AMB) | payer OTHER, SELFPAY ==
--- NOTE | 2023-02-13 09:13 | A.OFFVIS_ITS ---
Intake Vital Signs 02/13/23 09:16 Height 5 ft 6 in Weight 214 lb 15.211 oz BMI 34.7 BP 126/76 Blood Pressure Location Lt brachial Position Sitting Pulse 82 Pulse Source Pulse Oximeter Intake Visit Reasons: f/u Type 2DM/Confirmed Intake Note: Patient presents today to follow up on Type 2 Diabetes Mellitus. Patient receives DME supplies through: Last Diabetic Eye exam: 12/2022 Last Podiatry Visit: None Random Glucose: 215 mg/dl HgA1C: 8.0% 01/24/2023 Insole Channeler Required: No Accompanied by: Self / Same As Patient Allergies aspirin [ASPIRIN] Allergy (Intermediate, Verified 02/13/23 09:19) ITCH, hives diphenhydramine [From Benadryl] Allergy (Intermediate, Verified 02/13/23 09:19) hives latex [LATEX] Allergy (Intermediate, Verified 02/13/23 09:19) Itching oxybutynin Allergy (Unknown, Verified 02/13/23 09:19) unknown dog dander [DOG] Adverse Reaction (Intermediate, Verified 02/13/23 09:19) sinus problems environmental allergies Adverse Reaction (Intermediate, Verified 02/13/23 09:19) sinus problems gabapentin Adverse Reaction (Intermediate, Verified 02/13/23 09:19) difficulty sleeping Penicillins [PENICILLINS] Adverse Reaction (Intermediate, Verified 02/13/23 09:19) Faint Sulfa (Sulfonamide Antibiotics) Adverse Reaction (Intermediate, Verified 02/13/23 09:19) nausea, vomiting, myalgia, headache Medication List - Last Reconciled 02/13/23 by Nii Hernandez MD acetaminophen-codeine 300-30 mg 1 tab PO Q6H PRN 28 days albuterol sulfate 90 mcg/actuation 2 puffs PO Q4H PRN atorvastatin 10 mg PO DAILY blood sugar diagnostic (FreeStyle Lite Strips) 1 strip miscellaneous TID blood-glucose meter (FreeStyle Lite Meter kit) As directed cholecalciferol (vitamin D3) 25 mcg PO DAILY citalopram 40 mg PO DAILY 30 days cyanocobalamin (vitamin B-12) 1,000 mcg PO DAILY cyclobenzaprine 5 mg PO BID PRN docusate sodium (DOK) 100 mg PO DAILY PRN dulaglutide 3 mg (0.5 mL) subcut QWEEK 4 weeks empagliflozin (Jardiance) 25 mg PO DAILY lancets (FreeStyle Lancets) 28 gauge topical TID loratadine (Allergy Relief (loratadine)) 10 mg PO DAILY 30 days lorazepam 0.5 mg PO BEDTIME PRN 30 days metformin 1,000 mg PO BID 90 days nadolol 20 mg PO BEDTIME pantoprazole 40 mg PO DAILY sumatriptan succinate 100 mg PO BID PRN trazodone 100 mg PO BEDTIME PRN 90 days underpads (Goodnites Bed Mats) As directed HPI HPI Comments History of Present Illness Details 62 YO F who is seen in consultation for T2DM at the request of PCP. Initially diagnosed with T2DM in 5 yrs . Never saw endo before Was initially started on treatment with metformin 1000 mg BID . Current regimen metformin 1000 mg BID Trulicity 3 mg Qwkly . Jardiance 25 mg QD Glue template download shows she is checking her point cares 4 X/day. Average glucose is 217 with range 31-335. 16% range with 80% hyperglycemia and 4% hypoglycemia ? sx when had 2 low blood sugars Most recent A1C 8.0 on , Family history of T2DM in father and grandmother Type 2 DM . Has eyes checked yearly, last eye exam few mos ago in 11/2022 , denies retinopathy. Denies neuropathy, not sees podiatry. Denies nephropathy,Not on BRIANNA/ARB. . Has HLD, Not on statin. Denies CAD. Not Had diabetes education. [facility] Medical History Uncontrolled type 2 diabetes mellitus with hyperglycemia COVID-19 vaccine series completed Hearing impairment Obesity (BMI 30-39.9) Depression Anxiety Insomnia Vitamin B12 deficiency Vitamin D deficiency Migraine GERD (gastroesophageal reflux disease) Osteoarthritis of knees, bilateral Lumbar degenerative disc disease Asthma Pure hypercholesterolemia Benign essential hypertension Diabetes mellitus Surgical History Hx of dilation and curettage History of hysteroscopy History of pubovaginal sling H/O colonoscopy History of suburethral sling procedure (~05/07/12) Ingrown toenail of left foot History of section History of eye surgery History of tonsillectomy History of tubal ligation Family History Father Diabetes Mother Hypertension High cholesterol Family history of thyroid problem Paternal Grandfather Leukemia Social History Housing: Apartment Alcohol intake: never Patient Tobacco Use Status: Never used Tobacco e-Cigarette/Vaping Use: Never Used Second Hand Smoke Exposure: Yes service: No Current occupational status: disabled Cognitive needs: No Hearing needs: Yes Vision needs: Yes Female Reproductive History Menstrual Age of Menarche: 13 Physical Exam Vital Signs: Last Vital Signs Pulse 82 02/13/23 09:16 BP 126/76 02/13/23 09:16 BMI result Body Mass Index 34.7 Absence of Cushingoid features. Absence of acromegalic features. Neck exam reveals nl size thyroid about 15 gms. No thyroid nodules palpable. No carotid bruits present. Lungs CTA. Heart S1 S2, Reg R/R. No M/R/ G. Skin exam reveals absence of vitiligo or acanthosis nigricans. Abdominal exam reveals Soft NT/ND with NA BS. No organomegaly present. Neck Other: . Extrem Other: Visual exam of foot performed. No ulcerations or open lesions. No onchomycosis, no callouses.Pulses 2 + distally Sensation intact to monofilament exam. Vibratory sensation sensed is intact with 128 Hz tuning fork Results Reviewed Results Reviewed: 02/13/23 09:23 Glucose, Whole Blood Routine Laboratory Last Values Glucose (Clinic) 215 mg/dL (60-115) H 02/13/23 09:23 Assessment & Plan Assessment & Plan (1) Diabetes mellitus: Comment: taking metformin & januvia; Glimepiride added 11/19/20 Code(s): E11.9 - Type 2 diabetes mellitus without complications Qualifiers: Diabetes mellitus type: type 2 Diabetes mellitus longterm insulin use: without longterm use Diabetes mellitus complication status: without complication Qualified Code(s): E11.9 - Type 2 diabetes mellitus without complications Plan: This is a 62-year-old female with history of type 2 diabetes being treated metformin and Trulicity and Jardiance with poor glycemic control and no known microvascular or macrovascular complications. Plan is start 10 units of Lantus and titrate to point care in a.m. less than 150. Will talk to patient about getting a Sensor either Faith or Dexcom. Will increase atorvastatin to 20 mg and recheck lipid profile in 4 weeks. Today, she received teaching from the nurse about use of insulin administration. She will follow-up with CDE (2) Pure hypercholesterolemia: Code(s): E78.00 - Pure hypercholesterolemia, unspecified Orders: Orders Lipid Panel 6 Weeks E78.00 - Pure hypercholesterolemia, unspecified Medications: New insulin glargine (Lantus Solostar U-100 Insulin) 10 units (0.1 mL) subcut QPM 15 mL 5RF flash glucose sensor (FreeStyle Faith 2 Sensor kit) As directed change every 14 days 2 ea 5RF flash glucose scanning reader (FreeStyle Faith 2 [place]) As directed 1 ea 0RF pen needle, diabetic (Comfort EZ Pen [place]) As directed injects once a day 50 ea 4RF atorvastatin 20 mg PO DAILY 30 tabs 5RF flash glucose scanning reader (FreeStyle Faith 2 [place]) As directed 1 ea 0RF flash glucose sensor (FreeStyle Faith 2 Sensor kit) As directed change every 14 days 2 ea 5RF Discontinued atorvastatin Discontinued Reason: Doctor's Order 10 mg PO DAILY 30 tabs 6RF Coding Level of Care Code Est Pt Level 4 (05857) Diagnoses Type 2 diabetes mellitus without complication, without long-term current use of insulin E11.9 Diabetes mellitus type: type 2 Diabetes mellitus longterm insulin use: without longterm use Diabetes mellitus complication status: without complication Pure hypercholesterolemia E78.00
[2023-02-13 09:16] VITALS: BP 126/76; PULSE 82; BMI 34.7
[2023-02-13 09:27] LABS: Glucose, Whole Blood 215 mg/dL (60-115)
--- NOTE | 2023-02-13 10:07 | AM.OFFVISNUR ---
Intake Vital Signs 02/13/23 09:16 Height 5 ft 6 in Weight 214 lb 15.211 oz BMI 34.7 BP 126/76 Blood Pressure Location Lt brachial Position Sitting Pulse 82 Pulse Source Pulse Oximeter Intake Visit Reasons: f/u Type 2DM/Confirmed Allergies aspirin [ASPIRIN] Allergy (Intermediate, Verified 02/13/23 09:19) ITCH, hives diphenhydramine [From Benadryl] Allergy (Intermediate, Verified 02/13/23 09:19) hives latex [LATEX] Allergy (Intermediate, Verified 02/13/23 09:19) Itching oxybutynin Allergy (Unknown, Verified 02/13/23 09:19) unknown dog dander [DOG] Adverse Reaction (Intermediate, Verified 02/13/23 09:19) sinus problems environmental allergies Adverse Reaction (Intermediate, Verified 02/13/23 09:19) sinus problems gabapentin Adverse Reaction (Intermediate, Verified 02/13/23 09:19) difficulty sleeping Penicillins [PENICILLINS] Adverse Reaction (Intermediate, Verified 02/13/23 09:19) Faint Sulfa (Sulfonamide Antibiotics) Adverse Reaction (Intermediate, Verified 02/13/23 09:19) nausea, vomiting, myalgia, headache Medication List - Last Reconciled 02/13/23 by Nii Hernandez MD acetaminophen-codeine 300-30 mg 1 tab PO Q6H PRN 28 days albuterol sulfate 90 mcg/actuation 2 puffs PO Q4H PRN atorvastatin 10 mg PO DAILY blood sugar diagnostic (FreeStyle Lite Strips) 1 strip miscellaneous TID blood-glucose meter (FreeStyle Lite Meter kit) As directed cholecalciferol (vitamin D3) 25 mcg PO DAILY citalopram 40 mg PO DAILY 30 days cyanocobalamin (vitamin B-12) 1,000 mcg PO DAILY cyclobenzaprine 5 mg PO BID PRN docusate sodium (DOK) 100 mg PO DAILY PRN dulaglutide 3 mg (0.5 mL) subcut QWEEK 4 weeks empagliflozin (Jardiance) 25 mg PO DAILY lancets (FreeStyle Lancets) 28 gauge topical TID loratadine (Allergy Relief (loratadine)) 10 mg PO DAILY 30 days lorazepam 0.5 mg PO BEDTIME PRN 30 days metformin 1,000 mg PO BID 90 days nadolol 20 mg PO BEDTIME pantoprazole 40 mg PO DAILY sumatriptan succinate 100 mg PO BID PRN trazodone 100 mg PO BEDTIME PRN 90 days underpads (Goodnites Bed Mats) As directed Nursing Note Dr. Hernandez prescribed Lantus 10units daily for this patient. I met with the patient to teach her the proper way to use the Lantus pen with pen needles. We discussed proper cleansing of the skin and proper disposal of sharps. Patient verbalized understanding. Per Dr. Hernandez, patient is to increase Lantus dose every 3-4 days by 3 units to maintain blood glucose under 150mg/dL. I advised the patient to check in with me in a few days so we can track the increase and the effect of the increases. She has also been prescribed a Faith CGM. diabetic educator out on leave so I told the patient that if she needed assistance in placing her first sensor, she could make an appointment with me to help with the first application. Patient agrees to this plan. Coding Diagnoses Type 2 diabetes mellitus without complication, without long-term current use of insulin E11.9 Diabetes mellitus type: type 2 Diabetes mellitus terminal gauger insulin use: without terminal gauger use Diabetes mellitus complication status: without complication Pure hypercholesterolemia E78.00 Assessment & Plan Assessment & Plan (1) Diabetes mellitus: Comment: taking metformin & januvia; Glimepiride added 11/19/20 Code(s): E11.9 - Type 2 diabetes mellitus without complications Qualifiers: Diabetes mellitus type: type 2 Diabetes mellitus mcc insulin use: without terminal gauger use Diabetes mellitus complication status: without complication Qualified Code(s): E11.9 - Type 2 diabetes mellitus without complications (2) Pure hypercholesterolemia: Code(s): E78.00 - Pure hypercholesterolemia, unspecified Orders: Orders Lipid Panel 6 Weeks E78.00 - Pure hypercholesterolemia, unspecified Medications: New insulin glargine (Lantus Solostar U-100 Insulin) 10 units (0.1 mL) subcut QPM 15 mL 5RF flash glucose sensor (FreeStyle Faith 2 Sensor kit) As directed change every 14 days 2 ea 5RF flash glucose scanning reader (FreeStyle Faith 2 [place]) As directed 1 ea 0RF pen needle, diabetic (Comfort EZ Pen [place]) As directed injects once a day 50 ea 4RF atorvastatin 20 mg PO DAILY 30 tabs 5RF flash glucose scanning reader (FreeStyle Faith 2 [place]) As directed 1 ea 0RF flash glucose sensor (FreeStyle Faith 2 Sensor kit) As directed change every 14 days 2 ea 5RF Discontinued atorvastatin Discontinued Reason: Doctor's Order 10 mg PO DAILY 30 tabs 6RF
== END 2023-02-13 10:52 | disposition home or self-care (01) ==
PROVIDERS: PCP Internal Medicine; Visit Provider Internal Medicine Endocrinology, Diabetes & Metabolism
DX: E11.9 Type 2 diabetes mellitus without complications (principal); E78.00 Pure hypercholesterolemia, unspecified
CPT/HCPCS: 99214

== ENCOUNTER → 2023-02-13 09:13 | Outpatient (BNVA) | payer OTHER, SELFPAY | PROVIDERS: Visit Provider Internal Medicine Endocrinology, Diabetes & Metabolism | DX: E11.65 Type 2 diabetes mellitus with hyperglycemia (principal); Z79.4 Long term (current) use of insulin; Z79.84 Long term (current) use of oral hypoglycemic drugs; Z79.85 Long-term (current) use of injectable non-insulin antidiabetic drugs; Z83.3 Family history of diabetes mellitus | CPT/HCPCS: 82947; 99212 ==

== ENCOUNTER → 2023-03-13 10:24 | Outpatient (BNVA) | payer OTHER, SELFPAY | PROVIDERS: PCP Internal Medicine; Visit Provider Internal Medicine Endocrinology, Diabetes & Metabolism ==

== ENCOUNTER → 2023-03-14 09:19 | Outpatient (BNVA) | payer OTHER, SELFPAY | PROVIDERS: PCP Internal Medicine; Visit Provider Internal Medicine Endocrinology, Diabetes & Metabolism ==

== ENCOUNTER 2023-03-19 08:14 | Outpatient (AMB) | payer OTHER, SELFPAY ==
--- NOTE | 2023-03-19 08:39 | A.OFFVIS_ITS ---
Intake Intake Visit Reasons: DM2 Allergies aspirin [ASPIRIN] Allergy (Intermediate, Verified 02/13/23 09:19) ITCH, hives diphenhydramine [From Benadryl] Allergy (Intermediate, Verified 02/13/23 09:19) hives latex [LATEX] Allergy (Intermediate, Verified 02/13/23 09:19) Itching oxybutynin Allergy (Unknown, Verified 02/13/23 09:19) unknown dog dander [DOG] Adverse Reaction (Intermediate, Verified 02/13/23 09:19) sinus problems environmental allergies Adverse Reaction (Intermediate, Verified 02/13/23 09:19) sinus problems gabapentin Adverse Reaction (Intermediate, Verified 02/13/23 09:19) difficulty sleeping Penicillins [PENICILLINS] Adverse Reaction (Intermediate, Verified 02/13/23 09:19) Faint Sulfa (Sulfonamide Antibiotics) Adverse Reaction (Intermediate, Verified 02/13/23 09:19) nausea, vomiting, myalgia, headache HPI Comprehensive Diabetes Asmnt Most Recent Diabetes Results: Microalb/Creat Ratio 12.9 ug/mg cr (<30) 01/24/23 Cholesterol 184 mg/dL (<200) 01/24/23 HDL Cholesterol 42 mg/dL (>40) 01/24/23 Triglycerides 148 mg/dL (<150) 01/24/23 Creatinine 0.74 mg/dL (0.5-1.4) 01/24/23 Blood Urea Nitrogen 15 mg/dL (9-16) 01/24/23 Sodium 139 mmol/L (135-145) 01/24/23 Potassium 4.7 mmol/L (3.3-5.1) 01/24/23 Chloride 104 mmol/L (96-108) 01/24/23 Carbon Dioxide 27 mmol/L (22-29) 01/24/23 Calcium 9.7 mg/dL (8.4-10.2) 01/24/23 AST 12 U/L (5-31) 01/24/23 ALT 13 U/L (0-31) 01/24/23 Total Protein 7.7 g/dL (6.5-8.0) 01/24/23 Albumin 4.3 g/dL (3.5-5.0) 01/24/23 [facility] Medical History Uncontrolled type 2 diabetes mellitus with hyperglycemia COVID-19 vaccine series completed Hearing impairment Obesity (BMI 30-39.9) Depression Anxiety Insomnia Vitamin B12 deficiency Vitamin D deficiency Migraine GERD (gastroesophageal reflux disease) Osteoarthritis of knees, bilateral Lumbar degenerative disc disease Asthma Pure hypercholesterolemia Benign essential hypertension Diabetes mellitus Surgical History Hx of dilation and curettage History of hysteroscopy History of pubovaginal sling H/O colonoscopy History of suburethral sling procedure (~05/07/12) Ingrown toenail of left foot History of section History of eye surgery History of tonsillectomy History of tubal ligation Family History Father Diabetes Mother Hypertension High cholesterol Family history of thyroid problem Paternal Grandfather Leukemia Social History Housing: Apartment Alcohol intake: never Patient Tobacco Use Status: Never used Tobacco e-Cigarette/Vaping Use: Never Used Second Hand Smoke Exposure: Yes service: No Current occupational status: disabled Cognitive needs: No Hearing needs: Yes Vision needs: Yes Female Reproductive History Menstrual Age of Menarche: 13 Assessment & Plan Assessment & Plan (1) Uncontrolled type 2 diabetes mellitus with hyperglycemia: Code(s): E11.65 - Type 2 diabetes mellitus with hyperglycemia (2) Diabetes mellitus with hyperglycemia: Code(s): E11.65 - Type 2 diabetes mellitus with hyperglycemia Plan: Diabetes self-management education and support participation record Assessment/scale: 1= needs instructed? 2= needs review? 3= co mprehend keep point? 4= demonstrates understanding/ competent? NC= Not Covered Topics Learning Objective: Initial visit Initial or post srvc Initial or post srvc Initial or post srvc Initial or post srvc Initial or post srvc Post srvc Comments Pre Edu-assessment/plan Outcome or reassess Outcome or reassess Outcome or reassess Outcome or reassess Outcome or reassess Outcome or reassess Diabetes pathophysiology 1 3 Healthy eating 2 3 Being active 2 Taking medication 1 3 Monitoring glucose 2 3 Acute complication 1 Chronic complicated 1 Lifestyle and healthy coping 2 Diabetes distress in support 2 ?Diabetes pathophysiology: ?Defined diabetes med identify own type of diabetes; list 3 options for treating diabetes Healthy eating: ?Described effect of type, amount and ?timing of food on blood glucose; list 3 methods for planning meal Being active: ?State effect of exercise on blood glucose level Taking medication: ?State effect of diabetes medications on diabetes; name diabetes medications taking, action and side effects Monitoring glucose: ?Identify recommended blood glucose targets and personal target Acute complication: ?List symptoms and treatment of hyper and hypoglycemia, DKA, sick day guidelines and guidelines for severe weather or situations of crisis and diabetes supply manage Chronic complication: ?To find the relationship of blood glucose levels to long- term complications of diabetes in screening and preventative measures Lifestyle and healthy coping: ?Described lifestyle and healthy coping strategies to rule out diabetes self-management Diabetes to stress and support: ?Recognize Diabetes to stress and be able to identified support options Learning objectives: Learning objectives: The patient was provided with verbal and written education on the following topics as outlined below. Assess patient education level/literacy/barriers Patient questions/concerns, at last visit with Dr. David Hernandez added Lantus 10 units Patient is now using [employer] Faith 2 to check glucose Average glucose for the past 5 days 166 mg/dL 33% above target 67% at target 0% below target After review of patient's glucose data patient is not scanning frequently enough to capture 24 hours with data. Recommended to patient she add scan at bedtime in order to capture more glucose data Patient is currently taking Lantus 10 units Metformin 1000 units b.i.d. Jardiance 25 mg daily Recommended to patient to increase Lantus from 10 units to 12 units daily The patient met all learning objectives and was able to verbalize understanding and provide teach back of education topics discussed . The patient was provided with the opportunity to ask questions and all questions were answered. Topics covered in today?s session included: Medications (If applicable) ? Name of medication? Dosing/administration instructions? Mechanism of action? Potential side effects? Potential adverse reaction and appropriate treatment? Review onset, peak, duration Assess for concerns re: insurance coverage, cost, barriers to compliance Insulin/Injectables (If applicable) ? Storage/care of insulin? Injection sites? Site rotation? Onset, peak, duration ? Drawing up insulin? Injecting insulin/other injectables? Sharps disposal Continuous blood glucose monitoring (if applicable) Hypoglycemia and Hyperglycemia ? Signs and symptoms? Causes? Treatment? Preventing hypoglycemia? When to seek medical attention ?Blood glucose targets and how you feel when your blood glucose is in and out of your target ranges. ?Monitoring and knowing your A1C. ?What can make blood glucose go up and down and preventing high and low blood glucose. ?Review of blood sugar targets in expected goal range and outside of expected goal range. ?Problem solving and preventing hyper/hypoglycemia. ?Sick day management of diabetes. ?Using blood sugar results in decision making process in managing diabetes. ?Patient was receptive to information provided and participated in the discussion. Asked?appropriate questions and demonstrated good understanding of the topics discussed.? ? Educational Materials: The patient was provided with the following written educational materials: Target Goal handout Smart Goal Assessment:? And will add protein to breakfast Pt met goal less than 25% Patient reports that she is really eating breakfast at this time New Smart Goal: Patient will increase Lantus from 10 units to 12 units Patient will add scan of Faith 2 sensor at bedtime Patient Response to instructions: Comprehension of Instructions: Good Readiness to make changes:? Action How confident they feel about making changes: Positive Patient Instructions: Increase Lantus from 10 units to 12 units Scan Faith 2 sensor at bedtime Follow-up with Diabetes Education nurse in 1 month Coding Level of Care Code Est Pt Level 1 (62688) Diagnoses Uncontrolled type 2 diabetes mellitus with hyperglycemia E11.65 Diabetes mellitus with hyperglycemia E11.65
== END 2023-03-19 08:54 | disposition home or self-care (01) ==
PROVIDERS: PCP Internal Medicine; Visit Provider Registered Nurse Diabetes Educator
DX: E11.65 Type 2 diabetes mellitus with hyperglycemia (principal)

== ENCOUNTER → 2023-03-19 08:14 | Outpatient (BNVA) | payer OTHER, SELFPAY | PROVIDERS: PCP Internal Medicine; Visit Provider Registered Nurse Diabetes Educator | DX: E11.65 Type 2 diabetes mellitus with hyperglycemia (principal) | CPT/HCPCS: 99211 ==

== ENCOUNTER 2023-03-29 09:45 | Outpatient (AMB) | payer OTHER, SELFPAY ==
--- NOTE | 2023-03-29 10:12 | A.OFFVIS_ITS ---
Intake Vital Signs 03/29/23 10:23 Height 56 ft Weight 213 lb BMI 0.3 BP 175/84 H Blood Pressure Location Lt brachial Position Sitting Pulse 86 Intake Visit Reasons: right side back cyst Intake Note: Patient is seen in office for follow up visit, following lipoma of the back. Patient c/o: onset 2 yrs, admits to pain, denies increase/decrease, discharge, redness, swelling or other concerns L.OV: 09/01/21 Minister Assistant Required: No Accompanied by: Self / Same As Patient Allergies aspirin [ASPIRIN] Allergy (Intermediate, Verified 03/29/23 10:21) ITCH, hives diphenhydramine [From Benadryl] Allergy (Intermediate, Verified 03/29/23 10:21) hives latex [LATEX] Allergy (Intermediate, Verified 03/29/23 10:21) Itching oxybutynin Allergy (Unknown, Verified 03/29/23 10:21) unknown dog dander [DOG] Adverse Reaction (Intermediate, Verified 03/29/23 10:21) sinus problems environmental allergies Adverse Reaction (Intermediate, Verified 03/29/23 10:21) sinus problems gabapentin Adverse Reaction (Intermediate, Verified 03/29/23 10:21) difficulty sleeping Penicillins [PENICILLINS] Adverse Reaction (Intermediate, Verified 03/29/23 10:21) Faint Sulfa (Sulfonamide Antibiotics) Adverse Reaction (Intermediate, Verified 03/29/23 10:21) nausea, vomiting, myalgia, headache Medication List - Last Reconciled 03/29/23 by Carlito Wilson MD acetaminophen-codeine 300-30 mg 1 tab PO Q6H PRN 28 days albuterol sulfate 90 mcg/actuation 2 puffs PO Q4H PRN atorvastatin 20 mg PO DAILY blood sugar diagnostic (FreeStyle Lite Strips) 1 strip miscellaneous TID blood-glucose meter (FreeStyle Lite Meter kit) As directed cholecalciferol (vitamin D3) 25 mcg PO DAILY citalopram 40 mg PO DAILY 30 days cyanocobalamin (vitamin B-12) 1,000 mcg PO DAILY cyclobenzaprine 5 mg PO BID PRN docusate sodium (DOK) 100 mg PO DAILY PRN dulaglutide 3 mg (0.5 mL) subcut QWEEK 4 weeks empagliflozin (Jardiance) 25 mg PO DAILY flash glucose scanning reader (FreeStyle Faith 2 [place]) As directed flash glucose sensor (FreeStyle Faith 2 Sensor kit) As directed change every 14 days insulin glargine (Lantus Solostar U-100 Insulin) 12 units subcut QPM lancets (FreeStyle Lancets) 28 gauge topical TID loratadine (Allergy Relief (loratadine)) 10 mg PO DAILY 30 days lorazepam 0.5 mg PO BEDTIME PRN 30 days metformin 1,000 mg PO BID 90 days nadolol 20 mg PO BEDTIME pantoprazole 40 mg PO DAILY pen needle, diabetic (Comfort EZ Pen [place]) As directed injects once a day sumatriptan succinate 100 mg PO BID PRN trazodone 100 mg PO BEDTIME PRN 90 days underpads (Goodnites Bed Mats) As directed HPI HPI Comments History of Present Illness Details 63-year-old female patient returning wit h a new lipoma located in the left flank which is been increasing in size and causing discomfort. She reports taking pain medication due to the flank pain. She denies any skin changes, redness or discharge. She is requesting removal of this large lipoma. She denies previous surgery in this location. FORMERLY [facility] Medical History Uncontrolled type 2 diabetes mellitus with hyperglycemia COVID-19 vaccine series completed Hearing impairment Obesity (BMI 30-39.9) Depression Anxiety Insomnia Vitamin B12 deficiency Vitamin D deficiency Migraine GERD (gastroesophageal reflux disease) Osteoarthritis of knees, bilateral Lumbar degenerative disc disease Asthma Pure hypercholesterolemia Benign essential hypertension Diabetes mellitus Surgical History Hx of dilation and curettage History of hysteroscopy History of pubovaginal sling H/O colonoscopy History of suburethral sling procedure (~05/07/12) Ingrown toenail of left foot History of section History of eye surgery History of tonsillectomy History of tubal ligation Family History Father Diabetes Mother Hypertension High cholesterol Family history of thyroid problem Paternal Grandfather Leukemia Social History Housing: Apartment Alcohol intake: never Patient Tobacco Use Status: Never used Tobacco e-Cigarette/Vaping Use: Never Used Second Hand Smoke Exposure: Yes service: No Current occupational status: disabled Cognitive needs: No Hearing needs: Yes Vision needs: Yes Female Reproductive History Menstrual Age of Menarche: 13 Review of Systems Const All systems reviewed & are unremarkable except as noted in HPI and below Denies chills, Denies fever(s), Denies headache(s) and Denies poor appetite ENT Denies dizziness and Denies headache(s) Card Denies chest pain, Denies rapid heart rate, Denies palpitations and Denies slow heart rate Resp Denies chest congestion, Denies cough, Denies pain on inspiration and Denies wheezing GI Denies abdominal pain, Denies bloating, Denies change in stool character, Denies constipation, Denies diarrhea, Denies nausea, Denies vomiting and Denies hematemesis Musc Denies back pain, Denies arthralgias, Denies joint swelling and Denies numbness Skin/Breast Denies change in pigmentation, Denies erythema and Denies rash Neuro Denies dizziness, Denies headache(s) and Denies numbness Psych Denies anxiety and Denies depression Endo Denies palpitations Kevin/Lymph Denies easy bleeding, Denies easy bruising and Denies lymphadenopathy Aller/Immun Denies wheezing Physical Exam Const General: cooperative, comfortable and well developed Nutritional Appearance: well nourished Orientation/consciousness: patient oriented x3 Eyes Sclerae: sclerae normal EOM: EOMs intact bilaterally Neck Neck: Yes normal visual inspection Resp Effort & Inspection: normal respiratory effort, no cough, no respiratory distress and no stridor Cardio Jugular venous distension: no JVD GI Inspection: Yes normal to inspection Palpation (GI): Soft to palpation, nontender, no guarding and not rigid Back/Spine/Pelvis Other: Left flank with a large lipoma measuring 15 cm in diameter, tender to palpation with no overlying skin change, lesion is soft and mobile within the subcutaneous tissue. Skin General skin exam: dry skin Rashes: no rashes Neuro General: patient oriented x3 and no focal motor deficits Extrem General: Yes full ROM and Yes no clubbing, cyanosis or edema Psych Appearance: grossly normal Assessment & Plan Assessment & Plan (1) Lipoma of back: Code(s): D17.1 - Benign lipomatous neoplasm of skin and subcutaneous tissue of trunk Plan 63-year-old female patient presenting with a large lipoma of the left flank which is been increasing in size and causing discomfort. On examination there is a 15 cm round soft tissue mass suggestive of a lipoma. I recommended an excision under anesthesia, short-stay surgery. After discussion of the procedure, risks, and alternatives, she consents to the surgery. Medications: Changed From insulin glargine (Lantus Solostar U-100 Insulin) 10 units (0.1 mL) subcut QPM 15 mL 5RF To insulin glargine (Lantus Solostar U-100 Insulin) 12 units subcut QPM Coding Level of Care Code Est Pt Level 4 (27632) Diagnoses Lipoma of back D17.1
[2023-03-29 10:23] VITALS: BP 175/84; PULSE 86
== END 2023-03-29 10:35 | disposition home or self-care (01) ==
PROVIDERS: PCP Internal Medicine; Visit Provider Surgery
DX: D17.1 Benign lipomatous neoplasm of skin and subcutaneous tissue of trunk (principal)
CPT/HCPCS: 99214

== ENCOUNTER → 2023-03-29 09:45 | Outpatient (BNVA) | payer OTHER, SELFPAY | PROVIDERS: PCP Internal Medicine; Visit Provider Surgery | DX: D17.1 Benign lipomatous neoplasm of skin and subcutaneous tissue of trunk (principal) | CPT/HCPCS: 99212 ==

== ENCOUNTER 2023-04-30 07:17 | Day surgery (SDC) | payer OTHER, SELFPAY ==
[2023-04-19 14:39] VITALS: BMI 34.4
--- NOTE | 2023-04-27 08:55 | HO.ANESPROP2 ---
Documented by User: Ami Guzman NP 04/27/23 10:56 HPI - Anesthesia Eval Consult details Narrative: 63yo F for Left Excision Lipoma left flank Anesthesia Pre-Procedure Meds Is the patient on any of the following meds?: Dulaglutide (Trulicity) (Last dose 04/19/23) PMFSH Active Problems Active Problems: All Active Problems (Updated 10/12/22 @ 10:22 by Nii Hernandez MD) Uncontrolled type 2 diabetes mellitus with hyperglycemia (Acute) Annual physical exam (Acute) Abdominal bloating (Acute) Diabetes mellitus with hyperglycemia (Acute) Well woman exam (Acute) Postmenopausal bleeding (Acute) Myoma (Acute) Annual physical exam (Acute) Lump of skin (Acute) Lipoma of back (Acute) Hearing impairment (Acute) Obesity (BMI 30-39.9) (Acute) Depression (Acute) Anxiety (Acute) Insomnia (Acute) Vitamin B12 deficiency (Acute) Vitamin D deficiency (Acute) Migraine (Acute) GERD (gastroesophageal reflux disease) (Acute) Osteoarthritis of knees, bilateral (Acute) Lumbar degenerative disc disease (Acute) Asthma (Acute) Pure hypercholesterolemia (Acute) Benign essential hypertension (Acute) Diabetes mellitus (Acute) Past Medical History Medical History Uncontrolled type 2 diabetes mellitus with hyperglycemia COVID-19 vaccine series completed Hearing impairment Obesity (BMI 30-39.9) Depression Anxiety Insomnia Vitamin B12 deficiency Vitamin D deficiency Migraine GERD (gastroesophageal reflux disease) Osteoarthritis of knees, bilateral Lumbar degenerative disc disease Asthma Pure hypercholesterolemia Benign essential hypertension Diabetes mellitus Family History Family History Father Diabetes Mother Hypertension High cholesterol Family history of thyroid problem Paternal Grandfather Leukemia Surgical History Surgical History Hx of dilation and curettage History of hysteroscopy History of pubovaginal sling H/O colonoscopy History of suburethral sling procedure (~05/07/12) Ingrown toenail of left foot History of section History of eye surgery History of tonsillectomy History of tubal ligation Social History Social History Housing: Apartment Alcohol intake: never Patient Tobacco Use Status: Never used Tobacco e-Cigarette/Vaping Use: Never Used Second Hand Smoke Exposure: No Use of substances other than those prescribed or required for medical reasons: No Are you DNR?: No Advance Directives: No Advance Directives Information Provided: Yes Advance Directives on File: No service: No Current occupational status: disabled Cognitive needs: No Hearing needs: Yes Vision needs: Yes Meds Allergies Allergy/AdvReac Type Severity Reaction Status Date / Time aspirin [ASPIRIN] Allergy Intermediate ITCH, hives Verified 03/29/23 10:21 diphenhydramine Allergy Intermediate hives Verified 03/29/23 10:21 [From Benadryl] latex [LATEX] Allergy Intermediate Itching Verified 03/29/23 10:21 oxybutynin Allergy Unknown unknown Verified 03/29/23 10:21 dog dander [DOG] AdvReac Intermediate sinus Verified 03/29/23 10:21 problems environmental allergies AdvReac Intermediate sinus Verified 03/29/23 10:21 problems gabapentin AdvReac Intermediate difficulty Verified 03/29/23 10:21 sleeping Penicillins [PENICILLINS] AdvReac Intermediate Faint Verified 03/29/23 10:21 Sulfa (Sulfonamide AdvReac Intermediate nausea, Verified 03/29/23 10:21 Antibiotics) vomiting, myalgia, headache Home Medications Medication Instructions Recorded Confirmed Last Taken Type insulin glargine 100 unit/mL (3 12 unit subcut QPM 03/29/23 04/19/23 Unknown History mL) subcutaneous pen (Lantus Solostar U-100 Insulin) Exam Height,Weight and Vital Signs: Height 5 ft 6 in Weight 96.615 kg Pertinent Lab Results Pertinent Lab Results: Laboratory Tests 01/24/23 08:45 WBC 9.5 Hgb 13.8 Hct 43.4 Plt Count 325 Sodium 139 Potassium 4.7 Chloride 104 Carbon Dioxide 27 BUN 15 Creatinine 0.74 Assessment and Plan Assessment Anesthesia Assessment: Chart Reviewed Documented by User: Ora Man MD 04/30/23 08:04 HPI - Anesthesia Eval Anesthesia Pre-Procedure Meds If Yes to any meds - educate patient: Pt education - increased risk of aspiration PMFSH Past Medical History Medical History Uncontrolled type 2 diabetes mellitus with hyperglycemia COVID-19 vaccine series completed Hearing impairment Obesity (BMI 30-39.9) Depression Anxiety Insomnia Vitamin B12 deficiency Vitamin D deficiency Migraine GERD (gastroesophageal reflux disease) Osteoarthritis of knees, bilateral Lumbar degenerative disc disease Asthma Pure hypercholesterolemia Benign essential hypertension Diabetes mellitus Family History Family History Father Diabetes Mother Hypertension High cholesterol Family history of thyroid problem Paternal Grandfather Leukemia Family history of problems with anesthesia: No Surgical History Surgical History Hx of dilation and curettage History of hysteroscopy History of pubovaginal sling H/O colonoscopy History of suburethral sling procedure (~05/07/12) Ingrown toenail of left foot History of section History of eye surgery History of tonsillectomy History of tubal ligation History of Problems with Anesthesia: No Social History Social History Housing: Apartment Alcohol intake: never Patient Tobacco Use Status: Never used Tobacco e-Cigarette/Vaping Use: Never Used Second Hand Smoke Exposure: No Use of substances other than those prescribed or required for medical reasons: No Are you DNR?: No Advance Directives: No Advance Directives Information Provided: Yes Advance Directives on File: No service: No Current occupational status: disabled Cognitive needs: No Hearing needs: Yes Vision needs: Yes Meds Allergies Allergy/AdvReac Type Severity Reaction Status Date / Time aspirin [ASPIRIN] Allergy Intermediate ITCH, hives Verified 03/29/23 10:21 diphenhydramine Allergy Intermediate hives Verified 03/29/23 10:21 [From Benadryl] latex [LATEX] Allergy Intermediate Itching Verified 03/29/23 10:21 oxybutynin Allergy Unknown unknown Verified 03/29/23 10:21 dog dander [DOG] AdvReac Intermediate sinus Verified 03/29/23 10:21 problems environmental allergies AdvReac Intermediate sinus Verified 03/29/23 10:21 problems gabapentin AdvReac Intermediate difficulty Verified 03/29/23 10:21 sleeping Penicillins [PENICILLINS] AdvReac Intermediate Faint Verified 03/29/23 10:21 Sulfa (Sulfonamide AdvReac Intermediate nausea, Verified 03/29/23 10:21 Antibiotics) vomiting, myalgia, headache Home Medications Medication Instructions Recorded Confirmed Last Taken Type insulin glargine 100 unit/mL (3 12 unit subcut QPM 03/29/23 04/19/23 Unknown History mL) subcutaneous pen (Lantus Solostar U-100 Insulin) Exam Airway Mallampati Class: II TM Dist: >3cm Neck ROM: Full Heart: rrr Lungs: cta Assessment and Plan Assessment Anesthesia Assessment: Anesthesia Plan Discussed Final Anesthetic Review Family History of Problems with Anesthesia: No History of Problems with Anesthesia: No NPO: Yes ASA Class: III Final Preanesthetic Review: No Changes in Pt Med Stat, Meds/Allgs Chart Reviewed and Consent Obtained/Reviewed Patient Risk: Intermediate Procedure Risk: Intermediate Anesthetic Plan Anesthetic Plan: MAC: Disposition: Standard PACU
[2023-04-30 08:21] VITALS: BP 119/80; PULSE 73; RESP 16; TEMP 36.1; O2SAT 97
[2023-04-30 08:22] LABS: Glucose, Whole Blood 162 mg/dL (60-115)
[2023-04-30] MEDS: Lactated Ringers 1,000 ML 100 ML IVCONT (08:27)
--- NOTE | 2023-04-30 08:43 | MHC.SHP ---
Pre-Procedural Eval Section A Date of Service: 04/30/23 The patient is an INPATIENT: No Changes since office visit: Yes Patient answered all questions; No Cold of Flu in the past 2 weeks, No New Medical Problems and No Changes in Medication The History & Physical has been completed within 30 days and I have reviewed it.: No Section B Chief Complaint: Benign lipomatous neoplasm of skin and subcutaneou Details of Present Illness: No changes patient's symptoms of the left flank lipoma Relevant Family History (Specify if Yes): No Relevant Social History: None Present Medications: see Short Stay Collaborative assessment Medical History: No relevant PMH History of Previous Operations: No relevant previous surgery Allergies: Allergies Allergy/AdvReac Type Severity Reaction Status Date / Time aspirin [ASPIRIN] Allergy Intermediate ITCH, hives Verified 03/29/23 10:21 diphenhydramine Allergy Intermediate hives Verified 03/29/23 10:21 [From Benadryl] latex [LATEX] Allergy Intermediate Itching Verified 03/29/23 10:21 oxybutynin Allergy Unknown unknown Verified 03/29/23 10:21 dog dander [DOG] AdvReac Intermediate sinus Verified 03/29/23 10:21 problems environmental allergies AdvReac Intermediate sinus Verified 03/29/23 10:21 problems gabapentin AdvReac Intermediate difficulty Verified 03/29/23 10:21 sleeping Penicillins [PENICILLINS] AdvReac Intermediate Faint Verified 03/29/23 10:21 Sulfa (Sulfonamide AdvReac Intermediate nausea, Verified 03/29/23 10:21 Antibiotics) vomiting, myalgia, headache Review of Systems Sugical H&P ROS: Negative: Constitution, Cardiovascular, Respiratory, Neurological, Psychiatric, Hem-Onc, Allergic/Immunologic, Gastrointestinal, Genitourinary, Musculoskeletal, Integumentary, Endocrine and Eyes/Ears/Nose/Throat Exam Surgical H&P Exam: Normal: HEENT, Normal: Heart, Normal: Lungs, Normal: Extremities, Normal: Abdomen, Normal: Skin and Normal: Neurological Plan Diagnosis/Plan: Unchanged I have reviewed the history and physical and performed a pertinent physical examination on my patient. No changes have occurred unless specified. Time Spent With Patient Time: Total time managing care of this patient today ____ minutes.
--- NOTE | 2023-04-30 09:48 | W.PM.OPN ---
Operative Note Operative Note Date of Service: 04/30/23 Narrative: Preoperative diagnosis: Large lipoma left flank Postoperative diagnosis: same Procedure: excision of large lipoma left flank Surgeon: Carlito Wilson MD Prospecting Driller Helper: none Anesthesia: general LMA Indications for procedure: 63-year-old female patient presenting with a large painful lipoma of the left flank which is increasing in size and causing increased discomfort. Patient is requesting excision. Operative findings: 15 cm round lipoma left flank Specimen: lipoma left flank Estimated blood loss: 3 mL Complications: none Procedure details: patient was brought to the OR placed in a supine position. After administering general anesthesia patient was placed in a right lateral decubitus position. Patient's left flank was then prepped with ChloraPrep and draped in a sterile fashion. A surgical time-out was called the consent confirmed. Patient received preoperative antibiotics and Venodyne boots from place. Local anesthesia consisting of 0.5% Sensorcaine mixed with 1% lidocaine with epinephrine was then infiltrated circumferentially around the lipoma. Incision was then made in oblique fashion over the lipoma in carried out through subcutaneous tissue up to the outer surface of the lipoma. A combination of blunt and sharp dissection was then used to dissect the lipoma from the surrounding subcutaneous tissue. Hemostasis was assured all times using electrocautery. The entire lipoma was then easily removed and sent to pathology for further examination. Wounds were again checked for hemostasis with electrocautery. The space was then irrigated with saline solution and suctioned dry. Deep subcutaneous tissue was then reapproximated using interrupted 3-0 Polysorb sutures. Dermis was reapproximated using interrupted 3-0 Polysorb sutures. Skin was then closed using a running subcuticular 4-0 Polysorb suture The patient tolerated the procedure well. Sponge, instrument, needle counts reported as correct. Patient was transferred to PACU in stable condition.
[2023-04-30 09:57] VITALS: BP 122/68; PULSE 71; RESP 16; TEMP 36.2; O2SAT 98
[2023-04-30 10:02] VITALS: BP 117/69; PULSE 66; RESP 17; O2SAT 98
[2023-04-30 10:07] VITALS: BP 125/67; PULSE 67; RESP 17; O2SAT 96
[2023-04-30 10:12] VITALS: BP 112/59; PULSE 67; RESP 17; O2SAT 97
[2023-04-30 10:28] VITALS: BP 120/64; PULSE 65; RESP 18; TEMP 36.6; O2SAT 97
== END 2023-04-30 11:22 | disposition home or self-care (01) ==
PROVIDERS: PCP Internal Medicine; Visit Provider Surgery
PROC: (CPT 21931; principal; 2023-04-30 09:10)
DX: D17.1 Benign lipomatous neoplasm of skin and subcutaneous tissue of trunk (principal); I10 Essential (primary) hypertension; E78.00 Pure hypercholesterolemia, unspecified; J45.909 Unspecified asthma, uncomplicated; E11.9 Type 2 diabetes mellitus without complications; E66.9 Obesity, unspecified; Z68.34 Body mass index [BMI] 34.0-34.9, adult; Z79.4 Long term (current) use of insulin; Z79.84 Long term (current) use of oral hypoglycemic drugs; Z79.85 Long-term (current) use of injectable non-insulin antidiabetic drugs; Z79.899 Other long term (current) drug therapy; Z88.0 Allergy status to penicillin; Z88.2 Allergy status to sulfonamides; Z88.8 Allergy status to other drugs, medicaments and biological substances; Z98.890 Other specified postprocedural states; Z91.040 Latex allergy status
CPT/HCPCS: 21931; 82947; 88304; J0665; J0690; J2250; J2704; J3010

== ENCOUNTER → 2023-04-30 07:17 | Outpatient (BNV) | payer OTHER, SELFPAY | PROVIDERS: PCP Internal Medicine; Visit Provider Surgery | DX: D17.1 Benign lipomatous neoplasm of skin and subcutaneous tissue of trunk (principal) | CPT/HCPCS: 21931 ==

== ENCOUNTER 2023-05-10 08:23 | Outpatient (REF) | payer OTHER, SELFPAY ==
[2023-05-10 08:48] LABS: MANUAL DIFF FLAG NO
[2023-05-10 09:24] LABS: Basophils Percent Auto 0.5 % (0-2); Eosinophils Absolute Auto 0.1 X10*3/uL (0.0-0.4); Eosinophils Percent Auto 1.4 % (0-4); Hematocrit 42.7 % (37.0-47.0); Hemoglobin 13.7 g/dl (12.0-16.0); Imm Gran Abs Auto 0.05 X10*3/uL (0.00-0.03); Imm Gran Pct Auto 0.6 % (0.0-0.4); Lymphocytes Absolute Auto 3.3 X10*3/uL (1.2-4.9); Lymphocytes Percent Auto 37.6 % (20-40); Mean Corpuscular HGB Conc 32.1 g/dl (31.0-35.0); Mean Corpuscular Hemoglobin 28.4 pg (27.0-33.0); Mean Corpuscular Volume 88.4 fL (80.0-98.0); Mean Platelet Volume 9.4 fL (9.4-12.3); Monocytes Absolute Auto 0.6 X10*3/uL (0.1-1.2); Monocytes Percent Auto 6.4 % (2-11); Neutrophils Absolute Auto 4.8 x10*3/uL (2.0-8.3); Neutrophils Percent Auto 53.5 % (45-73); Platelet Count 322 X10*3/uL (160-400); Red Blood Count 4.83 X10*6/uL (4.20-5.50); Red Cell Distribution Width 13.7 % (11.0-16.0); White Blood Count 8.9 X10*3/uL (4.8-10.8)
[2023-05-10 09:28] LABS: Estimated Average Glucose 186 mg/dL; Hemoglobin A1c % 8.1 % (<6.0)
[2023-05-10 09:54] LABS: Alanine Aminotransferase 10 U/L (0-31); Albumin Level 4.2 g/dL (3.5-5.0); Alkaline Phosphatase 74 U/L (39-117); Anion Gap 13 (12-20); Aspartate Amino Transferase 11 U/L (5-31); Bilirubin Total 0.4 mg/dL (0.0-1.0); Blood Urea Nitrogen 13 mg/dL (9-16); Calcium 9.4 mg/dL (8.4-10.2); Carbon Dioxide 30 mmol/L (22-29); Chloride 105 mmol/L (96-108); Cholesterol 120 mg/dL (<200); Estimated Glomerular Filt Rate > 60; Glucose Fasting 142 mg/dL (60-99); HDL Cholesterol 38 mg/dL (>40); LDL Cholesterol Calculated 61 mg/dL (<100); Potassium 4.3 mmol/L (3.3-5.1); Sodium 144 mmol/L (135-145); Total Protein 7.6 g/dL (6.5-8.0); Triglycerides 107 mg/dL (<150)
[2023-05-10 10:14] LABS: TSH reflex Free T4 1.55 uIU/mL (0.32-4.0); Vitamin D 25-OH Total 49.5 ng/mL (>30)
[2023-05-10 10:17] LABS: Vitamin B12 303 pg/mL (200-900)
[2023-05-10 10:54] LABS: Appearance Urine Clear; Color Urine Yellow; Glucose Urine UA >=1000 mg/dL (Negative); Leukocyte Esterase Urine Negative (Negative); Nitrite Urine Negative (Negative); PH 5.5 (5.0-9.0); Specific Gravity - Urine >= 1.030 (1.005-1.025); UMIC TRIGGER UACC YES; Urine Blood Negative (Negative); Urine Ketones Trace mg/dL (Negative); Urine Protein Negative (Neg-Trace)
[2023-05-10 11:19] LABS: Bacteria Urine None Seen (None Seen); Hyaline Casts Urine 0-2 /LPF (0-2); RBC Urine 0-2 /HPF (0-2); WBC Urine 0-5 /HPF (0-5)
[2023-05-10 11:21] LABS: Creatinine Urine 80.52 mg/dL; Microalbum/Creatinine Ratio Ur 11.1 ug/mg cr (<30)
== END 2023-05-10 08:24 | disposition home or self-care (01) ==
LOC: HO.LAB 08:23
PROVIDERS: PCP Internal Medicine; Visit Provider Internal Medicine
DX: E78.00 Pure hypercholesterolemia, unspecified (principal); E55.9 Vitamin D deficiency, unspecified; E11.9 Type 2 diabetes mellitus without complications; I10 Essential (primary) hypertension; E53.8 Deficiency of other specified B group vitamins; R30.0 Dysuria
CPT/HCPCS: 36415; 80053; 80061; 81001; 82043; 82306; 82570; 82607; 82746; 83036; 84443; 85025

== ENCOUNTER 2023-05-15 10:22 | Outpatient (AMB) | payer OTHER, SELFPAY ==
[2023-05-15 10:44] VITALS: BP 138/86; PULSE 82; O2SAT 96; BMI 33.1
--- NOTE | 2023-05-15 10:44 | MHC.PC.OV ---
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 Required: No Accompanied by: Self / Same As Patient Allergies aspirin [ASPIRIN] Allergy (Intermediate, Verified 05/15/23 11:17) ITCH, hives diphenhydramine [From Benadryl] Allergy (Intermediate, Verified 05/15/23 11:17) hives latex [LATEX] Allergy (Intermediate, Verified 05/15/23 11:17) Itching oxybutynin Allergy (Unknown, Verified 05/15/23 11:17) unknown dog dander [DOG] Adverse Reaction (Intermediate, Verified 05/15/23 11:17) sinus problems environmental allergies Adverse Reaction (Intermediate, Verified 05/15/23 11:17) sinus problems gabapentin Adverse Reaction (Intermediate, Verified 05/15/23 11:17) difficulty sleeping Penicillins [PENICILLINS] Adverse Reaction (Intermediate, Verified 05/15/23 11:17) Faint Sulfa (Sulfonamide Antibiotics) Adverse Reaction (Intermediate, Verified 05/15/23 11:17) nausea, vomiting, myalgia, headache Medication List - Last Reconciled 05/15/23 by Christopher Domínguez MD acetaminophen-codeine 300-30 mg 1 tab PO Q6H PRN 28 days albuterol sulfate 90 mcg/actuation 2 puffs PO Q4H PRN atorvastatin 20 mg PO DAILY blood sugar diagnostic (FreeStyle Lite Strips) 1 strip miscellaneous TID blood-glucose meter (FreeStyle Lite Meter kit) As directed cholecalciferol (vitamin D3) 25 mcg PO DAILY citalopram 40 mg PO DAILY 30 days cyanocobalamin (vitamin B-12) 1,000 mcg PO DAILY cyclobenzaprine 5 mg PO BID PRN docusate sodium (DOK) 100 mg PO DAILY PRN dulaglutide 3 mg (0.5 mL) subcut QWEEK 4 weeks empagliflozin (Jardiance) 25 mg PO DAILY flash glucose scanning reader (t-ArtStyle Faith 2 [place]) DIRECTED flash glucose sensor (FreeStyle Faith 2 Sensor kit) As directed change every 14 days insulin glargine (Lantus Solostar U-100 Insulin) 12 units subcut QPM lancets (FreeStyle Lancets) 28 gauge topical TID loratadine (Allergy Relief (loratadine)) 10 mg PO DAILY 30 days lorazepam 0.5 mg PO BEDTIME PRN 30 days metformin 1,000 mg PO BID 90 days nadolol 20 mg PO BEDTIME pantoprazole 40 mg PO DAILY pen needle, diabetic (Comfort EZ Pen [place]) As directed injects once a day sumatriptan succinate 100 mg PO BID PRN trazodone 100 mg PO BEDTIME PRN 90 days underpads (Goodnites Bed Mats) As directed Tobacco use date assessed: 05/15/23 Dental Screening Dental Screen Date: 05/15/23 Did you have a dental visit in the last 12 months?: Yes Did you have a dental problem in the last 6 months where you did not have access to dental care?: No Was dental information given to patient?: Patient has dentist HPI DM, hyperlipidemia, HTN, migraine HPI Details Patient comes in today for her follow up visit States that she feels okay She denies any headaches or dizziness Denies any chest pains, no SOB No nausea/vomiting, no abdominal pain No change in bowel habits noted States that her low back pain and joint pains remain adequately controlled on her current Rx Has noticed increasing hair loss and thinning of her hair overall lately and would like to have this issue checked out before she loses all of her hair Had her follow up labs done last week - to discuss her results [facility] Medical History Uncontrolled type 2 diabetes mellitus with hyperglycemia COVID-19 vaccine series completed Hearing impairment Obesity (BMI 30-39.9) Depression Anxiety Insomnia Vitamin B12 deficiency Vitamin D deficiency Migraine GERD (gastroesophageal reflux disease) Osteoarthritis of knees, bilateral Lumbar degenerative disc disease Asthma Pure hypercholesterolemia Benign essential hypertension Diabetes mellitus Surgical History S/P excision of lipoma (04/30/23) Hx of dilation and curettage History of hysteroscopy History of pubovaginal sling H/O colonoscopy History of suburethral sling procedure (~05/07/12) Ingrown toenail of left foot History of section History of eye surgery History of tonsillectomy History of tubal ligation Family History Father Diabetes Mother Hypertension High cholesterol Family history of thyroid problem Paternal Grandfather Leukemia Social History Housing: Apartment Alcohol intake: never Patient Tobacco Use Status: Never used Tobacco e-Cigarette/Vaping Use: Never Used Second Hand Smoke Exposure: No service: No Current occupational status: disabled Cognitive needs: No Hearing needs: Yes Vision needs: Yes Female Reproductive History Menstrual Age of Menarche: 13 Questionnaire PHQ-9 Over the last 2 weeks, how often have you been bothered by any of the following problems? 1. Little interest or pleasure in doing things: several days 2. Feeling down, depressed, or hopeless: several days 3. Trouble falling or staying asleep, or sleeping too much: several days 4. Feeling tired or having little energy: several days 5. Poor appetite or overeating: several days 6. Feeling bad about yourself - or that you are a failure or have let yourself or your family down: not at all 7. Trouble concentrating on things, such as reading the newspaper or watching television: not at all 8. Moving or speaking so slowly that other people could have noticed. Or the opposite - being so fidgety or restless that you have been moving around a lot more than usual: not at all 9. Thoughts that you would be better off or of hurting yourself in some way: not at all Total score: 5 Depression Screening Interpretation: Positive Depression Screening Follow-up: Existing condition and In treatment Depression Screening Done: Yes [id number] - PHQ-9 Billing: Yes Source: Developed by Drs. Nii Shah, Leslie Carmona, Gustavo Newton and colleagues, with an educational dani from [employer]. Thrive Questionnaire Date Thrive assessed: 05/15/23 I am a: Patient What is your living situation today?: I have a steady place to live Within the past 12 months, did the food you bought not last and you didn't have the money to get more?: Never true Within the past 12 months, did you worry whether your food would run out before you got money to buy more?: Never true Do you have trouble paying for medicines?: No Do you have trouble getting transportation to medical appointments?: No Do you have trouble paying your heating and electricity bill?: No Do you have trouble taking care of your child, family member or friend?: No Do you have trouble with day-to-day activities such as bathing, preparing meals, shopping, managing finances, etc.?: No Are you currently unemployed and looking for a job?: No Are you interested in more education?: No Please select the resources that you would like help with: None Currently or been in a relationship where the following occur: no concerns reported AUDIT C Alcohol Use Questionnaire (AUDIT-C) 1. How often do you have a drink containing alcohol?: Never 3. How often do you have six or more drinks on one occasion?: Never Total Score: 0 Score Reviewed/Action Taken: Yes SONYA-7 AMB Questionnaire SONYA-7 Date SONYA - 7 assessed: 05/15/23 Feeling nervous, anxious, or on edge: 0 = Not at all Not being able to stop or control worryin = Not at all Worrying too much about different things: 0 = Not at all Trouble relaxin = Not at all Being so restless that it is hard to sit still: 0 = Not at all Becoming easily annoyed or irritable: 0 = Not at all Feeling afraid as if something awful might happen: 0 = Not at all Total SONYA-7 score (0-4 normal; 5-9 mild; 10-14 moderate; 15-21 severe): 0 Source: Developed by Drs. Nii Shah, Leslie Carmona, Gustavo Newton and colleagues, with an educational dani from [employer]. Review of Systems Const Denies chills, Denies fatigue, Denies fever(s), Denies headache(s) and Reports weakness (ONLY when blood sugar readings drop below 130 to 140 mg/dl in AM) ENT Denies dysphagia, Denies dizziness, Denies otalgia, Denies headache(s), Denies neck pain, Denies odynophagia and Denies sore throat Card Denies chest pain, Denies palpitations and Denies dyspnea Resp Denies cough, Denies dyspnea and Denies wheezing GI Denies abdominal pain, Denies constipation, Denies dysphagia, Denies heartburn, Denies diarrhea, Denies nausea, Denies odynophagia and Denies vomiting Denies nocturia, Denies dysuria, Denies urinary hesitancy and Denies urinary urgency Musc Reports back pain (on and off, over the lower back), Reports arthralgias (over both knees) and Denies neck pain Skin/Breast Reports alopecia (recently) and Denies rash Neuro Denies dizziness, Denies headache(s) and Reports weakness (ONLY when blood sugar readings drop below 130 to 140 mg/dl in AM) Psych Denies anxiety Endo Denies fatigue and Denies palpitations Aller/Immun Denies wheezing Physical exam (Primary Care) Vital Signs: Last Vital Signs Pulse 82 05/15/23 10:44 BP 138/86 05/15/23 10:44 Pulse Ox 96 05/15/23 10:44 Oxygen Delivery Method Room Air 05/15/23 10:44 BMI result Body Mass Index 33.1 Tobacco/Smoking Status: Tobacco use Status Tobacco use date assessed 05/15/23 05/15/23 10:47 Patient Tobacco Use Status Never used Tobacco 05/15/23 10:47 e-Cigarette/Vaping Use Never Used 05/15/23 10:47 PHQ-9: PHQ-9 Score PHQ-9: Total score 5 05/15/23 10:47 Depression Screening Interpretation: Positive Depression Screening Follow-up: Existing condition and In treatment Thrive Assessment: Date of Thrive Assessment Date Thrive assessed 05/15/23 05/15/23 10:47 Currently or been in a relationship where the following occur: no concerns reported Const General: no acute distress and alert HENMT Ears: TM's normal bilaterally and EAC's normal Throat: Yes posterior oropharynx normal and Yes tonsils normal (no TP congestion noted) Neck Neck: Yes no lymphadenopathy and Yes supple Resp Auscultation: clear to auscultation bilaterally, no rales and no wheezes Cardio Rate: regular rate Rhythm: regular rhythm Heart sounds: no murmurs GI Palpation (GI): Soft to palpation and nontender Auscultation: normal bowel sounds General: Yes no CVA tenderness Back/Spine/Pelvis Other: (+) large lipoma lesion on the back Back: no CVA tenderness Thoracic/Lumbar Spine: lumbar spinal tenderness Skin Rashes: no rashes Hair: general thinning Extrem General: Yes no clubbing, cyanosis or edema Right lower extremity: knee Details: tenderness; no swelling Left lower extremity: knee Details: tenderness; no swelling Results Reviewed Results Reviewed: Laboratory Tests 05/10/23 05/10/23 05/10/23 08:45 08:46 08:46 WBC 8.9 Hgb 13.7 Hct 42.7 Plt Count 322 Sodium 144 Potassium 4.3 Creatinine 0.77 Estimated GFR > 60 Fasting Glucose 142 H Hemoglobin A1c % 8.1 H AST 11 ALT 10 Triglycerides 107 Cholesterol 120 LDL Cholesterol, Calc 61 HDL Cholesterol 38 L Vitamin B12 303 25-OH Vitamin D Total 49.5 Folate 13.0 TSH 1.55 Ur Specific [place] >= 1.030 H Urine Protein Negative Urine Glucose (UA) >=1000 H Urine Blood Negative Microalb/Creat Ratio 11.1 Assessment and Plan Assessment & Plan (1) Diabetes mellitus: Comment: taking metformin & januvia; Glimepiride added 11/19/20 Code(s): E11.9 - Type 2 diabetes mellitus without complications Qualifiers: Diabetes mellitus type: type 2 Diabetes mellitus terminal operator insulin use: without terminal operator use Diabetes mellitus complication status: without complication Qualified Code(s): E11.9 - Type 2 diabetes mellitus without complications Plan: HgbA1c is still at 8.1% on her labs done last week (was at 8.0% a few months ago) - goal is at least <7.5%, in light of patient's recent symptoms of dizziness and weakness when her fasting blood sugar dips under 140 mg/dL Reinforced diabetic diet C-peptide level was normal and SONYA Ab were negative when checked previously Continue Metformin 1000 mg BID, Trulicity 3.0 mg SQ once a week and Jardiance 25 mg QD for now; is advised that as she will be seeing Dr. Hernandez for endocrinology follow up tomorrow, I will leave it up to him to make whatever med changes or adjustments he feels are appropriate Patient was taken off Januvia 100 mg QD and Glimepiride 2 mg Q AM over the past year (2) Benign essential hypertension: Code(s): I10 - Essential (primary) hypertension Plan: Reinforced low-sodium diet -? goal is systolic BP of at least 120 to 130 mm or less Patient is reminded to continue monitoring her blood pressure regularly (3) Pure hypercholesterolemia: Code(s): E78.00 - Pure hypercholesterolemia, unspecified Plan: Results of her labs done last week reviewed and discussed with patient Reinforced low cholesterol diet Continue Atorvastatin 10 mg QD Will recheck her labs and fasting lipids in 3 months for follow-up (4) Asthma: Comment: uses prn albuterol inhaler Code(s): J45.909 - Unspecified asthma, uncomplicated Qualifiers: Asthma severity: moderate Asthma persistence: persistent Asthma complication type: uncomplicated Qualified Code(s): J45.40 - Moderate persistent asthma, uncomplicated Plan: Stable Continue Advair HFA 115-21 mcg 2 puffs twice a day and Albuterol inhaler 2 puffs 4 times a day as needed (5) Migraine: Code(s): G43.909 - Migraine, unspecified, not intractable, without status migrainosus Qualifiers: Migraine type: without aura Status migrainosus presence: without status migrainosus Intractability: not intractable Qualified Code(s): G43.009 - Migraine without aura, not intractable, without status migrainosus Plan: States that her headaches have been stable lately Continue Sumatriptan 100 mg PRN and Nadolol 20 mg daily at bedtime for her headache prophylaxis (6) Lumbar degenerative disc disease: Code(s): M51.36 - Other intervertebral disc degeneration, lumbar region Plan: Reinforced activity and weight lifting restrictions Lumbar spine x-rays done back in 2017 showed (+) lumbar spine facet arthritis Continue Tylenol with codeine (#3) 1 tablet every 6 hours as needed for pain (7) Osteoarthritis of knees, bilateral: Code(s): M17.0 - Bilateral primary osteoarthritis of knee Qualifiers: Osteoarthritis type: primary Qualified Code(s): M17.0 - Bilateral primary osteoarthritis of knee Plan: Continue Acetaminophen PRN for pain Follow-up with Orthopedics as scheduled - gets cortisone injections in her knees as needed for pain relief (8) Hair loss: Code(s): L65.9 - Nonscarring hair loss, unspecified Plan: Per request, will refer her to dermatology for further evaluation and management States that her hair has thinned out quite a bit in the past few months due to increased hair loss (9) GERD (gastroesophageal reflux disease): Code(s): K21.9 - Gastro-esophageal reflux disease without esophagitis Qualifiers: Esophagitis presence: without esophagitis Qualified Code(s): K21.9 - Gastro-esophageal reflux disease without esophagitis Plan: Dietary restrictions reinforced Continue Pantoprazole 40 mg daily Patient's recent GI symptoms suggest early gastroparesis even though she had a normal gastric emptying study done back in 2019 Follow up with GI as scheduled (10) Vitamin D deficiency: Code(s): E55.9 - Vitamin D deficiency, unspecified Plan: Continue Vitamin D3 1000 units QD (11) Vitamin B12 deficiency: Code(s): E53.8 - Deficiency of other specified B group vitamins Plan: Continue on B12 tablets 1000 mcg QD (12) Lipoma of back: Code(s): D17.1 - Benign lipomatous neoplasm of skin and subcutaneous tissue of trunk Plan: Previous plans for surgical excision were held up due to patient's poorly-controlled DM Have advised patient to check back with Dr. Meadows in a few months to allow some more time for her diabetes control to improve and to check back with us for preop clearance if needed once she is scheduled again for excision of her large lipoma (13) Insomnia: Code(s): G47.00 - Insomnia, unspecified Qualifiers: Insomnia type: primary Qualified Code(s): F51.01 - Primary insomnia Plan: Sleep hygiene reinforced Continue Trazodone 100 mg daily at bedtime as needed (14) Anxiety: Code(s): F41.9 - Anxiety disorder, unspecified Plan: Continue Lorazepam 0.5 mg once a day at bedtime as needed and Hydroxyzine 10 mg 3 times a day PRN (15) Depression: Code(s): F32.9 - Major depressive disorder, single episode, unspecified Qualifiers: Depression Type: major depressive disorder Major depression recurrence: recurrent Active/Remission status: currently active Major depression episode severity: unspecified Qualified Code(s): F33.9 - Major depressive disorder, recurrent, unspecified Plan: Continue Citalopram 40 mg QD Follow-up with Psychiatry as scheduled (16) Obesity (BMI 30-39.9): Code(s): E66.9 - Obesity, unspecified Plan: Reinforced diet/exercise as tolerated/lose weight Plan Follow up in 3 months Orders: Orders Lipid Panel 3 Months E78.00 - Pure hypercholesterolemia, unspecified Complete Blood Count Auto Diff 3 Months I10 - Essential (primary) hypertension Comprehensive [place]. Panel Fast 3 Months E78.00 - Pure hypercholesterolemia, unspecified UA CC w/rflx Micro + Cult 3 Months R30.0 - Dysuria Hemoglobin A1c 3 Months E11.9 - Type 2 diabetes mellitus without complications Microalbumin, Random (w Creat) 3 Months E11.9 - Type 2 diabetes mellitus without complications TSH reflex Free T4 3 Months E78.00 - Pure hypercholesterolemia, unspecified Vitamin D 25-OH Total 3 Months E55.9 - Vitamin D deficiency, unspecified Referrals Dermatology Referral L65.9 - Nonscarring hair loss, unspecified Coding Level of Care Code Est Pt Level 4 (98350) Diagnoses Type 2 diabetes mellitus without complication, without long-term current use of insulin E11.9 Diabetes mellitus type: type 2 Diabetes mellitus shelter insulin use: without shelter use Diabetes mellitus complication status: without complication Benign essential hypertension I10 Pure hypercholesterolemia E78.00 Moderate persistent asthma without complication J45.40 Asthma severity: moderate Asthma persistence: persistent Asthma complication type: uncomplicated Migraine without aura and without status migrainosus, not intractable G43.009 Migraine type: without aura Status migrainosus presence: without status migrainosus Intractability: not intractable Lumbar degenerative disc disease M51.36 Primary osteoarthritis of both knees M17.0 Osteoarthritis type: primary Hair loss L65.9 Gastroesophageal reflux disease without esophagitis K21.9 Esophagitis presence: without esophagitis Vitamin D deficiency E55.9 Vitamin B12 deficiency E53.8 Lipoma of back D17.1 Primary insomnia F51.01 Insomnia type: primary Anxiety F41.9 Episode of recurrent major depressive disorder, unspecified depression episode severity F33.9 Depression Type: major depressive disorder Major depression recurrence: recurrent Active/Remission status: currently active Major depression episode severity: unspecified Obesity (BMI 30-39.9) E66.9
== END 2023-05-15 11:36 | disposition home or self-care (01) ==
PROVIDERS: PCP Internal Medicine; Visit Provider Internal Medicine
DX: E11.9 Type 2 diabetes mellitus without complications (principal); F33.9 Major depressive disorder, recurrent, unspecified; I10 Essential (primary) hypertension; E78.00 Pure hypercholesterolemia, unspecified; J45.40 Moderate persistent asthma, uncomplicated; G43.009 Migraine without aura, not intractable, without status migrainosus; M51.36 Other intervertebral disc degeneration, lumbar region; M17.0 Bilateral primary osteoarthritis of knee; L65.9 Nonscarring hair loss, unspecified; K21.9 Gastro-esophageal reflux disease without esophagitis; E55.9 Vitamin D deficiency, unspecified; E53.8 Deficiency of other specified B group vitamins
CPT/HCPCS: 99214

== ENCOUNTER 2023-05-16 10:28 | Outpatient (AMB) | payer OTHER, SELFPAY ==
[2023-05-16 10:28] VITALS: BP 126/86; PULSE 88; BMI 34.9
--- NOTE | 2023-05-16 10:28 | MHC.OFFVIS ---
Intake Vital Signs 05/16/23 10:28 Height 5 ft 6 in Weight 216 lb 4.375 oz BMI 34.9 BP 126/86 Blood Pressure Location Lt brachial Position Sitting Pulse 88 Pulse Source Pulse Oximeter Intake Visit Reasons: DM-CONFIRMED Intake Note: Patient presents today to follow up on DMT2. Last Diabetic Eye exam: 07/2022 Last Podiatry Visit: None Random Glucose: 147 mg/dl HgA1C: 8.1% 05/10/23 Radiocommunications Technician Required: No Accompanied by: Self / Same As Patient Allergies aspirin [ASPIRIN] Allergy (Intermediate, Verified 05/16/23 10:34) ITCH, hives diphenhydramine [From Benadryl] Allergy (Intermediate, Verified 05/16/23 10:34) hives latex [LATEX] Allergy (Intermediate, Verified 05/16/23 10:34) Itching oxybutynin Allergy (Unknown, Verified 05/16/23 10:34) unknown dog dander [DOG] Adverse Reaction (Intermediate, Verified 05/16/23 10:34) sinus problems environmental allergies Adverse Reaction (Intermediate, Verified 05/16/23 10:34) sinus problems gabapentin Adverse Reaction (Intermediate, Verified 05/16/23 10:34) difficulty sleeping Penicillins [PENICILLINS] Adverse Reaction (Intermediate, Verified 05/16/23 10:34) Faint Sulfa (Sulfonamide Antibiotics) Adverse Reaction (Intermediate, Verified 05/16/23 10:34) nausea, vomiting, myalgia, headache Medication List - Last Reconciled 05/16/23 by Nii Hernandez MD acetaminophen-codeine 300-30 mg 1 tab PO Q6H PRN 28 days albuterol sulfate 90 mcg/actuation 2 puffs PO Q4H PRN atorvastatin 20 mg PO DAILY blood sugar diagnostic (FreeStyle Lite Strips) 1 strip miscellaneous TID blood-glucose meter (FreeStyle Lite Meter kit) As directed cholecalciferol (vitamin D3) 25 mcg PO DAILY citalopram 40 mg PO DAILY 30 days cyanocobalamin (vitamin B-12) 1,000 mcg PO DAILY cyclobenzaprine 5 mg PO BID PRN docusate sodium (DOK) 100 mg PO DAILY PRN dulaglutide 3 mg (0.5 mL) subcut QWEEK 4 weeks empagliflozin (Jardiance) 25 mg PO DAILY flash glucose scanning reader ([employer]umble[employer]Style Faith 2 [place]) DIRECTED flash glucose sensor (FreeStyle Faith 2 Sensor kit) As directed change every 14 days insulin glargine (Lantus Solostar U-100 Insulin) 12 units subcut QPM lancets (FreeStyle Lancets) 28 gauge topical TID loratadine (Allergy Relief (loratadine)) 10 mg PO DAILY 30 days lorazepam 0.5 mg PO BEDTIME PRN 30 days metformin 1,000 mg PO BID 90 days nadolol 20 mg PO BEDTIME pantoprazole 40 mg PO DAILY pen needle, diabetic (Comfort EZ [place]) As directed injects once a day sumatriptan succinate 100 mg PO BID PRN trazodone 100 mg PO BEDTIME PRN 90 days underpads (Goodnites Bed Mats) As directed HPI HPI Comments History of Present Illness Details 63 YO F who is seen in consultation for T2DM at the request of PCP. Initially diagnosed with T2DM in 5 yrs . Never saw endo before Was initially started on treatment with metformin 1000 mg BID . Current regimen metformin 1000 mg BID Trulicity 3 mg Qwkly . Jardiance 25 mg QD Lantus 12 units download shows she is checking her point cares 4 X/day. Average glucose is 180 with range 89-334. 60% range with 40% hyperglycemia and 0% hypoglycemia Most recent A1C 8.0 on , Family history of T2DM in father and grandmother Type 2 DM . Denies hypoglycemia Has eyes checked yearly, last eye exam in 11/2022 , denies retinopathy. Denies neuropathy, not sees podiatry. Denies nephropathy,Not on BRIANNA/ARB. . Has HLD, Not on statin. Denies CAD. Saw diabetes education. Has appt next wk [facility] Medical History Uncontrolled type 2 diabetes mellitus with hyperglycemia COVID-19 vaccine series completed Hearing impairment Obesity (BMI 30-39.9) Depression Anxiety Insomnia Vitamin B12 deficiency Vitamin D deficiency Migraine GERD (gastroesophageal reflux disease) Osteoarthritis of knees, bilateral Lumbar degenerative disc disease Asthma Pure hypercholesterolemia Benign essential hypertension Diabetes mellitus Surgical History S/P excision of lipoma (04/30/23) Hx of dilation and curettage History of hysteroscopy History of pubovaginal sling H/O colonoscopy History of suburethral sling procedure (~05/07/12) Ingrown toenail of left foot History of section History of eye surgery History of tonsillectomy History of tubal ligation Family History Father Diabetes Mother Hypertension High cholesterol Family history of thyroid problem Paternal Grandfather Leukemia Social History Housing: Apartment Alcohol intake: never Patient Tobacco Use Status: Never used Tobacco e-Cigarette/Vaping Use: Never Used Second Hand Smoke Exposure: No service: No Current occupational status: disabled Cognitive needs: No Hearing needs: Yes Vision needs: Yes Female Reproductive History Menstrual Age of Menarche: 13 Physical Exam Vital Signs: Last Vital Signs Pulse 88 05/16/23 10:28 BP 126/86 05/16/23 10:28 BMI result Body Mass Index 34.9 Absence of Cushingoid features. Absence of acromegalic features. Neck exam reveals nl size thyroid about 15 gms. No thyroid nodules palpable. No carotid bruits present. Lungs CTA. Heart S1 S2, Reg R/R. No M/R/ G. Skin exam reveals absence of vitiligo or acanthosis nigricans. Abdominal exam reveals Soft NT/ND with NA BS. No organomegaly present. Neck Other: . Extrem Other: Visual exam of foot performed. No ulcerations or open lesions. No onchomycosis, no callouses.Pulses 2 + distally Sensation intact to monofilament exam. Vibratory sensation sensed is intact with 128 Hz tuning fork Results Reviewed Results Reviewed: Laboratory Last Values Glucose (Clinic) 147 mg/dL (60-115) H 05/16/23 10:36 Assessment & Plan Assessment & Plan (1) Diabetes mellitus: Comment: taking metformin & januvia; Glimepiride added 11/19/20 Code(s): E11.9 - Type 2 diabetes mellitus without complications Qualifiers: Diabetes mellitus type: type 2 Diabetes mellitus longterm insulin use: without longterm use Diabetes mellitus complication status: without complication Qualified Code(s): E11.9 - Type 2 diabetes mellitus without complications Plan: This is a 62-year-old female with history of type 2 diabetes being treated metformin and Trulicity and Jardiance with poor glycemic control and no known microvascular or macrovascular complications. Plan is switch the Trulicity to Ozempic 0.25 mg q.week and if not tolerated to Mounjaro . Went over side effects of Ozempic andMounjaro including but not limited to nausea, vomiting and risk of pancreatitis. She is going to be with the digital designer next week to learn how to install the Faith. Mounjaro 2.5 mg samples given the patient lot number [id number] expiration date 11/29/2024 (2) Pure hypercholesterolemia: Code(s): E78.00 - Pure hypercholesterolemia, unspecified Plan: Currently at goal on atorvastatin 20 mg Coding Level of Care Code Est Pt Level 4 (35610) Diagnoses Type 2 diabetes mellitus without complication, without long-term current use of insulin E11.9 Diabetes mellitus type: type 2 Diabetes mellitus keno terminal operator insulin use: without longterm use Diabetes mellitus complication status: without complication Pure hypercholesterolemia E78.00
[2023-05-16 10:40] LABS: Glucose, Whole Blood 147 mg/dL (60-115)
--- NOTE | 2023-05-16 11:23 | AM.OFFVISNUR ---
Intake Vital Signs 05/16/23 10:28 Height 5 ft 6 in Weight 216 lb 4.375 oz BMI 34.9 BP 126/86 Blood Pressure Location Lt brachial Position Sitting Pulse 88 Pulse Source Pulse Oximeter Intake Visit Reasons: DM-CONFIRMED Allergies aspirin [ASPIRIN] Allergy (Intermediate, Verified 05/16/23 10:34) ITCH, hives diphenhydramine [From Benadryl] Allergy (Intermediate, Verified 05/16/23 10:34) hives latex [LATEX] Allergy (Intermediate, Verified 05/16/23 10:34) Itching oxybutynin Allergy (Unknown, Verified 05/16/23 10:34) unknown dog dander [DOG] Adverse Reaction (Intermediate, Verified 05/16/23 10:34) sinus problems environmental allergies Adverse Reaction (Intermediate, Verified 05/16/23 10:34) sinus problems gabapentin Adverse Reaction (Intermediate, Verified 05/16/23 10:34) difficulty sleeping Penicillins [PENICILLINS] Adverse Reaction (Intermediate, Verified 05/16/23 10:34) Faint Sulfa (Sulfonamide Antibiotics) Adverse Reaction (Intermediate, Verified 05/16/23 10:34) nausea, vomiting, myalgia, headache Medication List - Last Reconciled 05/16/23 by Nii Hernandez MD acetaminophen-codeine 300-30 mg 1 tab PO Q6H PRN 28 days albuterol sulfate 90 mcg/actuation 2 puffs PO Q4H PRN atorvastatin 20 mg PO DAILY blood sugar diagnostic (FreeStyle Lite Strips) 1 strip miscellaneous TID blood-glucose meter (FreeStyle Lite Meter kit) As directed cholecalciferol (vitamin D3) 25 mcg PO DAILY citalopram 40 mg PO DAILY 30 days cyanocobalamin (vitamin B-12) 1,000 mcg PO DAILY cyclobenzaprine 5 mg PO BID PRN docusate sodium (DOK) 100 mg PO DAILY PRN dulaglutide 3 mg (0.5 mL) subcut QWEEK 4 weeks empagliflozin (Jardiance) 25 mg PO DAILY flash glucose scanning reader ([employer] ProStyle Faith 2 [place]) DIRECTED flash glucose sensor (FreeStyle Faith 2 Sensor kit) As directed change every 14 days insulin glargine (Lantus Solostar U-100 Insulin) 12 units subcut QPM lancets (FreeStyle Lancets) 28 gauge topical TID loratadine (Allergy Relief (loratadine)) 10 mg PO DAILY 30 days lorazepam 0.5 mg PO BEDTIME PRN 30 days metformin 1,000 mg PO BID 90 days nadolol 20 mg PO BEDTIME pantoprazole 40 mg PO DAILY pen needle, diabetic (Comfort EZ Pen [place]) As directed injects once a day sumatriptan succinate 100 mg PO BID PRN trazodone 100 mg PO BEDTIME PRN 90 days underpads (Goodnites Bed Mats) As directed Nursing Note Patient instructed on proper injection technique including how to use the pen injection. We discussed proper disposal of sharps and cleansing of the skin. Patient will call with questions/concerns. Coding Diagnoses Type 2 diabetes mellitus without complication, without long-term current use of insulin E11.9 Diabetes mellitus type: type 2 Diabetes mellitus fci insulin use: without meterman use Diabetes mellitus complication status: without complication Pure hypercholesterolemia E78.00 Assessment & Plan Assessment & Plan (1) Diabetes mellitus: Comment: taking metformin & januvia; Glimepiride added 11/19/20 Code(s): E11.9 - Type 2 diabetes mellitus without complications Category: Medical Qualifiers: Diabetes mellitus type: type 2 Diabetes mellitus meterman insulin use: without meterman use Diabetes mellitus complication status: without complication Qualified Code(s): E11.9 - Type 2 diabetes mellitus without complications (2) Pure hypercholesterolemia: Code(s): E78.00 - Pure hypercholesterolemia, unspecified Category: Medical
== END 2023-05-16 11:19 | disposition home or self-care (01) ==
PROVIDERS: PCP Internal Medicine; Visit Provider Internal Medicine Endocrinology, Diabetes & Metabolism
DX: E11.9 Type 2 diabetes mellitus without complications (principal); E78.00 Pure hypercholesterolemia, unspecified
CPT/HCPCS: 99214

== ENCOUNTER → 2023-05-16 10:28 | Outpatient (BNVA) | payer OTHER, SELFPAY | PROVIDERS: PCP Internal Medicine; Visit Provider Internal Medicine Endocrinology, Diabetes & Metabolism | DX: E11.9 Type 2 diabetes mellitus without complications (principal); E78.00 Pure hypercholesterolemia, unspecified | CPT/HCPCS: 82947; 99212 ==

== ENCOUNTER 2023-05-17 10:29 | Outpatient (AMB) | payer OTHER, SELFPAY ==
[2023-05-17 10:35] VITALS: BP 114/71; PULSE 81; BMI 34.7
--- NOTE | 2023-05-17 10:35 | MHC.OFFVIS ---
Intake Vital Signs 05/17/23 10:35 Height 5 ft 6 in Weight 215 lb BMI 34.7 BP 114/71 Blood Pressure Location Rt brachial Position Sitting Pulse 81 Intake Visit Reasons: S/P excision lipoma Lt flank Intake Note: Patient is seen in office for post op assessment post excision of large lipoma left flank on 04/30/23. Pt c/o: itch along incision. Industrial Ecologist Required: No Accompanied by: Self / Same As Patient Allergies aspirin [ASPIRIN] Allergy (Intermediate, Verified 05/17/23 10:36) ITCH, hives diphenhydramine [From Benadryl] Allergy (Intermediate, Verified 05/17/23 10:36) hives latex [LATEX] Allergy (Intermediate, Verified 05/17/23 10:36) Itching oxybutynin Allergy (Unknown, Verified 05/17/23 10:36) unknown dog dander [DOG] Adverse Reaction (Intermediate, Verified 05/17/23 10:36) sinus problems environmental allergies Adverse Reaction (Intermediate, Verified 05/17/23 10:36) sinus problems gabapentin Adverse Reaction (Intermediate, Verified 05/17/23 10:36) difficulty sleeping Penicillins [PENICILLINS] Adverse Reaction (Intermediate, Verified 05/17/23 10:36) Faint Sulfa (Sulfonamide Antibiotics) Adverse Reaction (Intermediate, Verified 05/17/23 10:36) nausea, vomiting, myalgia, headache Medication List - Last Reconciled 05/17/23 by Carlito Wilson MD acetaminophen-codeine 300-30 mg 1 tab PO Q6H PRN 28 days albuterol sulfate 90 mcg/actuation 2 puffs PO Q4H PRN atorvastatin 20 mg PO DAILY blood sugar diagnostic (FreeStyle Lite Strips) 1 strip miscellaneous TID blood-glucose meter (FreeStyle Lite Meter kit) As directed cholecalciferol (vitamin D3) 25 mcg PO DAILY citalopram 40 mg PO DAILY 30 days cyanocobalamin (vitamin B-12) 1,000 mcg PO DAILY cyclobenzaprine 5 mg PO BID PRN docusate sodium (DOK) 100 mg PO DAILY PRN dulaglutide 3 mg (0.5 mL) subcut QWEEK 4 weeks empagliflozin (Jardiance) 25 mg PO DAILY flash glucose scanning reader (E[employer]SynthStyle Faith 2 [place]) DIRECTED flash glucose sensor (FreeStyle Faith 2 Sensor kit) As directed change every 14 days insulin glargine (Lantus Solostar U-100 Insulin) 12 units subcut QPM lancets (FreeStyle Lancets) 28 gauge topical TID loratadine (Allergy Relief (loratadine)) 10 mg PO DAILY 30 days lorazepam 0.5 mg PO BEDTIME PRN 30 days metformin 1,000 mg PO BID 90 days nadolol 20 mg PO BEDTIME pantoprazole 40 mg PO DAILY pen needle, diabetic (Comfort EZ Pen [place]) As directed injects once a day sumatriptan succinate 100 mg PO BID PRN trazodone 100 mg PO BEDTIME PRN 90 days underpads (Goodnites Bed Mats) As directed HPI HPI Comments History of Present Illness Details 63-year-old female patient returning 2 weeks following excision of a large lipoma of the left flank. She tolerated the procedure well reports feeling well. She denies any pain around the incision. [facility] Medical History Uncontrolled type 2 diabetes mellitus with hyperglycemia COVID-19 vaccine series completed Hearing impairment Obesity (BMI 30-39.9) Depression Anxiety Insomnia Vitamin B12 deficiency Vitamin D deficiency Migraine GERD (gastroesophageal reflux disease) Osteoarthritis of knees, bilateral Lumbar degenerative disc disease Asthma Pure hypercholesterolemia Benign essential hypertension Diabetes mellitus Surgical History S/P excision of lipoma (04/30/23) Hx of dilation and curettage History of hysteroscopy History of pubovaginal sling H/O colonoscopy History of suburethral sling procedure (~05/07/12) Ingrown toenail of left foot History of section History of eye surgery History of tonsillectomy History of tubal ligation Family History Father Diabetes Mother Hypertension High cholesterol Family history of thyroid problem Paternal Grandfather Leukemia Social History Housing: Apartment Alcohol intake: never Patient Tobacco Use Status: Never used Tobacco e-Cigarette/Vaping Use: Never Used Second Hand Smoke Exposure: No service: No Current occupational status: disabled Cognitive needs: No Hearing needs: Yes Vision needs: Yes Female Reproductive History Menstrual Age of Menarche: 13 Physical Exam Vital Signs: Last Vital Signs Pulse 81 05/17/23 10:35 BP 114/71 05/17/23 10:35 BMI result Body Mass Index 34.7 Const General: comfortable Resp Effort & Inspection: normal respiratory effort Back/Spine/Pelvis Other: Left flank incision is clean, dry, and intact without redness or discharge. No seroma or hematoma is appreciated. Back/spine/pelvis image: 1. Incision left flank Extrem General: Yes normal to inspection Assessment & Plan Assessment & Plan (1) Lipoma of back: Code(s): D17.1 - Benign lipomatous neoplasm of skin and subcutaneous tissue of trunk Plan 63-year-old female patient returning 2 weeks following excision of a large lipoma of the left flank. Her wounds are clean, dry, and intact without evidence of seroma or hematoma. She should follow up as needed. Coding Level of Care Code Global (05176) Diagnoses Lipoma of back D17.1
== END 2023-05-17 10:44 | disposition home or self-care (01) ==
PROVIDERS: PCP Internal Medicine; Visit Provider Surgery
DX: D17.1 Benign lipomatous neoplasm of skin and subcutaneous tissue of trunk (principal)
CPT/HCPCS: 99024

== ENCOUNTER → 2023-05-17 10:29 | Outpatient (BNVA) | payer OTHER, SELFPAY | PROVIDERS: PCP Internal Medicine; Visit Provider Surgery | DX: Z48.817 Encounter for surgical aftercare following surgery on the skin and subcutaneous tissue (principal); Z98.890 Other specified postprocedural states | CPT/HCPCS: 99212 ==

== ENCOUNTER 2023-05-24 08:48 | Outpatient (AMB) | payer OTHER, SELFPAY ==
--- NOTE | 2023-05-24 09:36 | MHC.AMDMED ---
Intake Intake Visit Reasons: DM2/CONFIRMED Manager Procurement Required: No Accompanied by: Self / Same As Patient Allergies aspirin [ASPIRIN] Allergy (Intermediate, Verified 05/17/23 10:36) ITCH, hives diphenhydramine [From Benadryl] Allergy (Intermediate, Verified 05/17/23 10:36) hives latex [LATEX] Allergy (Intermediate, Verified 05/17/23 10:36) Itching oxybutynin Allergy (Unknown, Verified 05/17/23 10:36) unknown dog dander [DOG] Adverse Reaction (Intermediate, Verified 05/17/23 10:36) sinus problems environmental allergies Adverse Reaction (Intermediate, Verified 05/17/23 10:36) sinus problems gabapentin Adverse Reaction (Intermediate, Verified 05/17/23 10:36) difficulty sleeping Penicillins [PENICILLINS] Adverse Reaction (Intermediate, Verified 05/17/23 10:36) Faint Sulfa (Sulfonamide Antibiotics) Adverse Reaction (Intermediate, Verified 05/17/23 10:36) nausea, vomiting, myalgia, headache HPI Comprehensive Diabetes Asmnt Most Recent Diabetes Results: Microalb/Creat Ratio 11.1 ug/mg cr (<30) 05/10/23 Cholesterol 120 mg/dL (<200) 05/10/23 HDL Cholesterol 38 mg/dL (>40) L 05/10/23 Triglycerides 107 mg/dL (<150) 05/10/23 Creatinine 0.77 mg/dL (0.5-1.4) 05/10/23 Blood Urea Nitrogen 13 mg/dL (9-16) 05/10/23 Sodium 144 mmol/L (135-145) 05/10/23 Potassium 4.3 mmol/L (3.3-5.1) 05/10/23 Chloride 105 mmol/L (96-108) 05/10/23 Carbon Dioxide 30 mmol/L (22-29) H 05/10/23 Calcium 9.4 mg/dL (8.4-10.2) 05/10/23 AST 11 U/L (5-31) 05/10/23 ALT 10 U/L (0-31) 05/10/23 Total Protein 7.6 g/dL (6.5-8.0) 05/10/23 Albumin 4.2 g/dL (3.5-5.0) 05/10/23 [facility] Medical History Uncontrolled type 2 diabetes mellitus with hyperglycemia COVID-19 vaccine series completed Hearing impairment Obesity (BMI 30-39.9) Depression Anxiety Insomnia Vitamin B12 deficiency Vitamin D deficiency Migraine GERD (gastroesophageal reflux disease) Osteoarthritis of knees, bilateral Lumbar degenerative disc disease Asthma Pure hypercholesterolemia Benign essential hypertension Diabetes mellitus Surgical History S/P excision of lipoma (04/30/23) Hx of dilation and curettage History of hysteroscopy History of pubovaginal sling H/O colonoscopy History of suburethral sling procedure (~05/07/12) Ingrown toenail of left foot History of section History of eye surgery History of tonsillectomy History of tubal ligation Family History Father Diabetes Mother Hypertension High cholesterol Family history of thyroid problem Paternal Grandfather Leukemia Social History Housing: Apartment Alcohol intake: never Patient Tobacco Use Status: Never used Tobacco e-Cigarette/Vaping Use: Never Used Second Hand Smoke Exposure: No service: No Current occupational status: disabled Cognitive needs: No Hearing needs: Yes Vision needs: Yes Female Reproductive History Menstrual Age of Menarche: 13 Assessment & Plan Assessment & Plan (1) Uncontrolled type 2 diabetes mellitus with hyperglycemia: Code(s): E11.65 - Type 2 diabetes mellitus with hyperglycemia Plan: Learning objectives: The patient was provided with verbal and written education on the following topics as outlined below. Assess patient education level/literacy/barriers Patient questions/concerns, patient is having difficulty with adhesion of Faith 2 sensor. Patient given sample of skin tac, new sensor started at today's visit. Patient has been using glucose meter 4-5 times daily Patient is testing fasting glucose: 122 to 230 mg/dL, and then 2 hour post meal glucose levels Post meal glucose range from 145-268 mg/dL Patient is taking Lantus [address] Hernandez has also switched patient from Trulicity 3 mg, to Ozempic 0.25 mg weekly Reviewed with patient how to use Ozempic pen The patient met all learning objectives and was able to verbalize understanding and provide teach back of education topics discussed . The patient was provided with the opportunity to ask questions and all questions were answered. Topics covered in today?s session included: Medications (If applicable) Name of medication? Dosing/administration instructions? Mechanism of action? Potential side effects? Potential adverse reaction and appropriate treatment? Review onset, peak, duration Assess for concerns re: insurance coverage, cost, barriers to compliance Insulin/Injectables (If applicable) Storage/care of insulin?? Injection sites? Site rotation? Onset, peak, duration Drawing up insulin? Injecting insulin/other injectables? Sharps disposal Continuous blood glucose monitoring (if applicable) Hypoglycemia and Hyperglycemia Signs and symptoms? Causes?? Treatment? Preventing hypoglycemia? When to seek medical attention Blood glucose targets and how you feel when your blood glucose is in and out of your target ranges. Monitoring and knowing your A1C. What can make blood glucose go up and down and preventing high and low blood glucose. Review of blood sugar targets in expected goal range and outside of expected goal range. Problem solving and preventing hyper/hypoglycemia. Sick day management of diabetes. Using blood sugar results in decision making process in managing diabetes. ?Patient was receptive to information provided and participated in the discussion. Asked?appropriate questions and demonstrated good understanding of the topics discussed.? ? Educational Materials: The patient was provided with the following written educational materials: Target Goal, [place] foods carbohydrate handout Patient Response to instructions: Comprehension of Instructions: fair Readiness to make changes:? contemplation How confident they feel about making changes:fair Patient Instructions: Patient will start Ozempic 0.25 mg weekly Follow-up with critical care educator in 1 month Coding Level of Care Code Est Pt Level 1 (60772) Diagnoses Uncontrolled type 2 diabetes mellitus with hyperglycemia E11.65
== END 2023-05-24 09:38 | disposition home or self-care (01) ==
PROVIDERS: PCP Internal Medicine; Visit Provider Registered Nurse Diabetes Educator
DX: E11.65 Type 2 diabetes mellitus with hyperglycemia (principal)

== ENCOUNTER → 2023-05-24 08:48 | Outpatient (BNVA) | payer OTHER, SELFPAY | PROVIDERS: PCP Internal Medicine; Visit Provider Registered Nurse Diabetes Educator | DX: E11.65 Type 2 diabetes mellitus with hyperglycemia (principal) | CPT/HCPCS: 99211 ==

== ENCOUNTER 2023-06-27 09:02 | Outpatient (AMB) | payer OTHER, SELFPAY ==
--- NOTE | 2023-06-27 09:38 | A.OFFVIS_ITS ---
Intake Intake Visit Reasons: DM/Confirmed Workers Compensation Claims Analyst Required: No Accompanied by: Self / Same As Patient Allergies aspirin [ASPIRIN] Allergy (Intermediate, Verified 05/17/23 10:36) ITCH, hives diphenhydramine [From Benadryl] Allergy (Intermediate, Verified 05/17/23 10:36) hives latex [LATEX] Allergy (Intermediate, Verified 05/17/23 10:36) Itching oxybutynin Allergy (Unknown, Verified 05/17/23 10:36) unknown dog dander [DOG] Adverse Reaction (Intermediate, Verified 05/17/23 10:36) sinus problems environmental allergies Adverse Reaction (Intermediate, Verified 05/17/23 10:36) sinus problems gabapentin Adverse Reaction (Intermediate, Verified 05/17/23 10:36) difficulty sleeping Penicillins [PENICILLINS] Adverse Reaction (Intermediate, Verified 05/17/23 10:36) Faint Sulfa (Sulfonamide Antibiotics) Adverse Reaction (Intermediate, Verified 05/17/23 10:36) nausea, vomiting, myalgia, headache HPI Comprehensive Diabetes Asmnt Most Recent Diabetes Results: Microalb/Creat Ratio 11.1 ug/mg cr (<30) 05/10/23 Cholesterol 120 mg/dL (<200) 05/10/23 HDL Cholesterol 38 mg/dL (>40) L 05/10/23 Triglycerides 107 mg/dL (<150) 05/10/23 Creatinine 0.77 mg/dL (0.5-1.4) 05/10/23 Blood Urea Nitrogen 13 mg/dL (9-16) 05/10/23 Sodium 144 mmol/L (135-145) 05/10/23 Potassium 4.3 mmol/L (3.3-5.1) 05/10/23 Chloride 105 mmol/L (96-108) 05/10/23 Carbon Dioxide 30 mmol/L (22-29) H 05/10/23 Calcium 9.4 mg/dL (8.4-10.2) 05/10/23 AST 11 U/L (5-31) 05/10/23 ALT 10 U/L (0-31) 05/10/23 Total Protein 7.6 g/dL (6.5-8.0) 05/10/23 Albumin 4.2 g/dL (3.5-5.0) 05/10/23 [facility] Medical History Uncontrolled type 2 diabetes mellitus with hyperglycemia COVID-19 vaccine series completed Hearing impairment Obesity (BMI 30-39.9) Depression Anxiety Insomnia Vitamin B12 deficiency Vitamin D deficiency Migraine GERD (gastroesophageal reflux disease) Osteoarthritis of knees, bilateral Lumbar degenerative disc disease Asthma Pure hypercholesterolemia Benign essential hypertension Diabetes mellitus Surgical History S/P excision of lipoma (04/30/23) Hx of dilation and curettage History of hysteroscopy History of pubovaginal sling H/O colonoscopy History of suburethral sling procedure (~05/07/12) Ingrown toenail of left foot History of section History of eye surgery History of tonsillectomy History of tubal ligation Family History Father Diabetes Mother Hypertension High cholesterol Family history of thyroid problem Paternal Grandfather Leukemia Social History Housing: Apartment Alcohol intake: never Patient Tobacco Use Status: Never used Tobacco e-Cigarette/Vaping Use: Never Used Second Hand Smoke Exposure: No service: No Current occupational status: disabled Cognitive needs: No Hearing needs: Yes Vision needs: Yes Female Reproductive History Menstrual Age of Menarche: 13 Assessment & Plan Assessment & Plan (1) Uncontrolled type 2 diabetes mellitus with hyperglycemia: Code(s): E11.65 - Type 2 diabetes mellitus with hyperglycemia Plan: Personal Continuous Glucose Monitor: Patients CGM information reviewed Reviewed patient's sensor data: Hypoglycemia: ? 0% Hyperglycemia:?48% Time in Range:? 52% Average glucose for the last 2 weeks? 181 mg/dL Dr. Hernandez recently started patient on Mounjaro after discontinuing Ozempic. For the past 2 weeks patient has taken Mounjaro 5 mg No complaint of nausea, diarrhea or constipation. Reviewed with patient the importance of scanning sensor every 4-6 hours while awake Adjusted high alert to 250 mg/dL, patient complained at 180 she was getting too many high alerts Also requested new freestyle Lite meter script be sent to pharmacy Patient has postprandial rise in glucose especially after breakfast, discussed with patient the importance of adding protein and fiber to carbohydrate choice. Patient had 1 episode of hypoglycemia, patient reports she treated with candy. Instructed patient if she notices increase in hypoglycemic events to contact provider or healthcare educator for adjustment in Lantus dose Reviewed how to interpret trend arrows Reminded patient that to check finger sticks if symptoms do not match sensor reading. Discussed lag time between finger stick and sensor data.? Patient able to insert sensor independently at home without issue.? Patient Instructions: Patient will follow-up with healthcare educator in 1 month for review of glucose, to assess if she needs increase in Mounjaro dose Coding Level of Care Code Est Pt Level 1 (03361) Diagnoses Uncontrolled type 2 diabetes mellitus with hyperglycemia E11.65
== END 2023-06-27 09:41 | disposition home or self-care (01) ==
PROVIDERS: PCP Internal Medicine; Visit Provider Registered Nurse Diabetes Educator
DX: E11.65 Type 2 diabetes mellitus with hyperglycemia (principal)

== ENCOUNTER → 2023-06-27 09:02 | Outpatient (BNVA) | payer OTHER, SELFPAY | PROVIDERS: PCP Internal Medicine; Visit Provider Registered Nurse Diabetes Educator | DX: E11.65 Type 2 diabetes mellitus with hyperglycemia (principal) | CPT/HCPCS: 99211 ==

== ENCOUNTER 2023-07-26 09:06 | Outpatient (AMB) | payer OTHER, SELFPAY ==
--- NOTE | 2023-07-26 09:59 | A.OFFVIS_ITS ---
Intake Intake Visit Reasons: DM Chemical Laboratory Assistant Required: No Accompanied by: Self / Same As Patient Allergies aspirin [ASPIRIN] Allergy (Intermediate, Verified 05/17/23 10:36) ITCH, hives diphenhydramine [From Benadryl] Allergy (Intermediate, Verified 05/17/23 10:36) hives latex [LATEX] Allergy (Intermediate, Verified 05/17/23 10:36) Itching oxybutynin Allergy (Unknown, Verified 05/17/23 10:36) unknown dog dander [DOG] Adverse Reaction (Intermediate, Verified 05/17/23 10:36) sinus problems environmental allergies Adverse Reaction (Intermediate, Verified 05/17/23 10:36) sinus problems gabapentin Adverse Reaction (Intermediate, Verified 05/17/23 10:36) difficulty sleeping Penicillins [PENICILLINS] Adverse Reaction (Intermediate, Verified 05/17/23 10:36) Faint Sulfa (Sulfonamide Antibiotics) Adverse Reaction (Intermediate, Verified 3 10:36) nausea, vomiting, myalgia, headache HPI Comprehensive Diabetes Asmnt Most Recent Diabetes Results: Microalb/Creat Ratio 11.1 ug/mg cr (<30) 05/10/23 Cholesterol 120 mg/dL (<200) 05/10/23 HDL Cholesterol 38 mg/dL (>40) L 05/10/23 Triglycerides 107 mg/dL (<150) 05/10/23 Creatinine 0.77 mg/dL (0.5-1.4) 05/10/23 Blood Urea Nitrogen 13 mg/dL (9-16) 05/10/23 Sodium 144 mmol/L (135-145) 05/10/23 Potassium 4.3 mmol/L (3.3-5.1) 05/10/23 Chloride 105 mmol/L (96-108) 05/10/23 Carbon Dioxide 30 mmol/L (22-29) H 05/10/23 Calcium 9.4 mg/dL (8.4-10.2) 05/10/23 AST 11 U/L (5-31) 05/10/23 ALT 10 U/L (0-31) 05/10/23 Total Protein 7.6 g/dL (6.5-8.0) 05/10/23 Albumin 4.2 g/dL (3.5-5.0) 05/10/23 [facility] Medical History Uncontrolled type 2 diabetes mellitus with hyperglycemia COVID-19 vaccine series completed Hearing impairment Obesity (BMI 30-39.9) Depression Anxiety Insomnia Vitamin B12 deficiency Vitamin D deficiency Migraine GERD (gastroesophageal reflux disease) Osteoarthritis of knees, bilateral Lumbar degenerative disc disease Asthma Pure hypercholesterolemia Benign essential hypertension Diabetes mellitus Surgical History S/P excision of lipoma (04/30/23) Hx of dilation and curettage History of hysteroscopy History of pubovaginal sling H/O colonoscopy History of suburethral sling procedure (~05/07/12) Ingrown toenail of left foot History of section History of eye surgery History of tonsillectomy History of tubal ligation Family History Father Diabetes Mother Hypertension High cholesterol Family history of thyroid problem Paternal Grandfather Leukemia Social History Housing: Apartment Alcohol intake: never Patient Tobacco Use Status: Never used Tobacco e-Cigarette/Vaping Use: Never Used Second Hand Smoke Exposure: No service: No Current occupational status: disabled Cognitive needs: No Hearing needs: Yes Vision needs: Yes Female Reproductive History Menstrual Age of Menarche: 13 Assessment & Plan Assessment & Plan (1) Uncontrolled type 2 diabetes mellitus with hyperglycemia: Code(s): E11.65 - Type 2 diabetes mellitus with hyperglycemia Plan: Personal Continuous Glucose Monitor: Patients CGM information reviewed Reviewed patient's sensor data: Hypoglycemia: ? 0% Hyperglycemia:? 42% Time in Range:? 58% Average glucose for the last 2 weeks? 175 mg/dL Reminded patient to try and scan sensor every 4-6 hours while awake, patient did report she had 2 episodes of hypoglycemia in 1 afternoon. Reviewed with patient how to treat hypoglycemia with rule of 15s, rule of 15 handout given. Patient requested next dose of Mounjaro be sent to patient's pharmacy, reviewed with patient if she increases Mounjaro dose we may need to decrease Lantus dose. Instructed patient after she increases majority of to 7.5 mg if she is experiencing hypoglycemia she needs to call either provider or Diabetes Education nurse for adjustment in Lantus Recommended to patient if she is going to increase to Mounjaro 7.5 mg to decrease Lantus to 10 units daily Reviewed how to interpret trend arrows Reminded patient that to check finger sticks if symptoms do not match sensor reading. Discussed lag time between finger stick and sensor data.? Patient able to insert sensor independently at home without issue.? Patient is due for next A1c in August 2023, patient has appointment with Dr. Hernandez Patient Instructions: Contact early childhood educator aide provider if experiencing increase in hypoglycemia Follow-up with early childhood educator aide in 4 months Coding Level of Care Code Est Pt Level 1 (69034) Diagnoses Uncontrolled type 2 diabetes mellitus with hyperglycemia E11.65
== END 2023-07-26 10:02 | disposition home or self-care (01) ==
PROVIDERS: PCP Internal Medicine; Visit Provider Registered Nurse Diabetes Educator
DX: E11.65 Type 2 diabetes mellitus with hyperglycemia (principal)

== ENCOUNTER → 2023-07-26 09:06 | Outpatient (BNVA) | payer OTHER, SELFPAY | PROVIDERS: PCP Internal Medicine; Visit Provider Registered Nurse Diabetes Educator | DX: E11.65 Type 2 diabetes mellitus with hyperglycemia (principal); Z79.4 Long term (current) use of insulin | CPT/HCPCS: 99211 ==

== ENCOUNTER 2023-08-13 09:36 | Outpatient (REF) | payer OTHER, SELFPAY ==
[2023-08-13 10:00] LABS: MANUAL DIFF FLAG NO
[2023-08-13 10:59] LABS: Basophils Percent Auto 0.4 % (0-2); Eosinophils Absolute Auto 0.1 X10*3/uL (0.0-0.4); Eosinophils Percent Auto 1.4 % (0-4); Hematocrit 44.1 % (37.0-47.0); Hemoglobin 14.2 g/dl (12.0-16.0); Imm Gran Abs Auto 0.06 X10*3/uL (0.00-0.03); Imm Gran Pct Auto 0.7 % (0.0-0.4); Lymphocytes Absolute Auto 3.5 X10*3/uL (1.2-4.9); Lymphocytes Percent Auto 38.6 % (20-40); Mean Corpuscular HGB Conc 32.2 g/dl (31.0-35.0); Mean Corpuscular Hemoglobin 27.8 pg (27.0-33.0); Mean Corpuscular Volume 86.3 fL (80.0-98.0); Mean Platelet Volume 9.5 fL (9.4-12.3); Monocytes Absolute Auto 0.6 X10*3/uL (0.1-1.2); Monocytes Percent Auto 7.1 % (2-11); Neutrophils Absolute Auto 4.7 x10*3/uL (2.0-8.3); Neutrophils Percent Auto 51.8 % (45-73); Platelet Count 298 X10*3/uL (160-400); Red Blood Count 5.11 X10*6/uL (4.20-5.50); Red Cell Distribution Width 13.4 % (11.0-16.0); White Blood Count 9.1 X10*3/uL (4.8-10.8)
[2023-08-13 11:15] LABS: Appearance Urine Clear; Color Urine Yellow; Glucose Urine UA >=1000 mg/dL (Negative); Leukocyte Esterase Urine Negative (Negative); Nitrite Urine Negative (Negative); PH 5.5 (5.0-9.0); Specific Gravity - Urine >= 1.030 (1.005-1.025); UMIC TRIGGER UACC YES; Urine Blood Negative (Negative); Urine Ketones Trace mg/dL (Negative); Urine Protein Negative (Neg-Trace)
[2023-08-13 11:35] LABS: Estimated Average Glucose 171 mg/dL; Hemoglobin A1c % 7.6 % (<6.0)
[2023-08-13 11:38] LABS: Alanine Aminotransferase 13 U/L (0-31); Albumin Level 4.2 g/dL (3.5-5.0); Alkaline Phosphatase 93 U/L (39-117); Anion Gap 13 (12-20); Aspartate Amino Transferase 14 U/L (5-31); Blood Urea Nitrogen 17 mg/dL (9-16); Calcium 9.9 mg/dL (8.4-10.2); Carbon Dioxide 28 mmol/L (22-29); Chloride 102 mmol/L (96-108); Cholesterol 120 mg/dL (<200); Estimated Glomerular Filt Rate > 60; Glucose Fasting 170 mg/dL (60-99); HDL Cholesterol 40 mg/dL (>40); LDL Cholesterol Calculated 42 mg/dL (<100); Potassium 4.4 mmol/L (3.3-5.1); Sodium 139 mmol/L (135-145); Total Protein 7.6 g/dL (6.5-8.0); Triglycerides 190 mg/dL (<150)
[2023-08-13 11:40] LABS: Creatinine Urine 52.26 mg/dL; Microalbumin Urine < 5.0 mg/L
[2023-08-13 11:49] LABS: Bilirubin Total 0.3 mg/dL (0.0-1.0)
[2023-08-13 12:06] LABS: TSH reflex Free T4 1.23 uIU/mL (0.32-4.0); Vitamin D 25-OH Total 45.9 ng/mL (>30)
[2023-08-13 12:14] LABS: Bacteria Urine None Seen (None Seen); Hyaline Casts Urine 0-2 /LPF (0-2); RBC Urine 0-2 /HPF (0-2); Squamous Epithelial Cell Urine 0-2 /HPF (0-2); WBC Urine 0-5 /HPF (0-5)
== END 2023-08-13 09:37 | disposition home or self-care (01) ==
LOC: HO.LAB 09:36
PROVIDERS: PCP Internal Medicine; Visit Provider Internal Medicine
DX: E11.9 Type 2 diabetes mellitus without complications (principal); I10 Essential (primary) hypertension; E55.9 Vitamin D deficiency, unspecified; E78.00 Pure hypercholesterolemia, unspecified
CPT/HCPCS: 36415; 80053; 80061; 81001; 81003; 82043; 82306; 82570; 83036; 84443; 85025

== ENCOUNTER 2023-08-15 13:55 | Outpatient (AMB) | payer OTHER, SELFPAY ==
--- NOTE | 2023-08-15 13:57 | A.OFFPC_ITS ---
Vital Signs 08/15/23 13:59 Height 5 ft 6 in Weight 216 lb 4 oz BMI 34.9 BP 102/70 Blood Pressure Location Lt brachial Position Sitting Pulse 82 Pulse Source Pulse Oximeter Pulse Oximetry (%) 98 Oxygen Delivery Method Room Air Intake Visit Reasons: 3mth f/u Intake Note: Patient is here to follow up on DM, HTN, GERD, Asthma, Migraine. Gizzard Skin Remover Required: No Urology Physician Assistant: Not Required per policy Accompanied by: Self / Same As Patient Allergies aspirin [ASPIRIN] Allergy (Intermediate, Verified 03/27/24 11:54) ITCH, hives diphenhydramine [From Benadryl] Allergy (Intermediate, Verified 03/27/24 11:54) hives latex [LATEX] Allergy (Intermediate, Verified 03/27/24 11:54) Itching oxybutynin Allergy (Unknown, Verified 03/27/24 11:54) unknown dog dander [DOG] Adverse Reaction (Intermediate, Verified 03/27/24 11:54) sinus problems environmental allergies Adverse Reaction (Intermediate, Verified 03/27/24 11:54) sinus problems gabapentin Adverse Reaction (Intermediate, Verified 03/27/24 11:54) difficulty sleeping Penicillins [PENICILLINS] Adverse Reaction (Intermediate, Verified 03/27/24 11:54) Faint Sulfa (Sulfonamide Antibiotics) Adverse Reaction (Intermediate, Verified 03/27/24 11:54) nausea, vomiting, myalgia, headache Medication List - Last Reconciled 08/15/23 by Christopher Domínguez MD acetaminophen-codeine 300-30 mg 1 tab PO Q6H PRN 28 days albuterol sulfate 90 mcg/actuation 2 puffs PO Q4H PRN atorvastatin 20 mg PO DAILY blood sugar diagnostic (FreeStyle Lite Strips) 1 strip miscellaneous TID blood-glucose meter (FreeStyle Lite Meter kit) As directed cholecalciferol (vitamin D3) 25 mcg PO DAILY citalopram 40 mg PO DAILY 30 days cyanocobalamin (vitamin B-12) 1,000 mcg PO DAILY cyclobenzaprine 5 mg PO BID PRN docusate sodium (DOK) 100 mg PO DAILY PRN empagliflozin (Jardiance) 25 mg PO DAILY flash glucose scanning reader (SolartrecStyle Faith 2 [place]) DIRECTED flash glucose sensor (FreeStyle Faith 2 Sensor kit) As directed change every 14 days [incontinent pads As directed two/daily ] insulin glargine (Lantus Solostar U-100 Insulin) 12 units (0.12 mL) subcut QPM lancets (FreeStyle Lancets) 28 gauge topical TID loratadine (Allergy Relief (loratadine)) 10 mg PO DAILY 30 days lorazepam 0.5 mg PO BEDTIME PRN 30 days metformin 1,000 mg PO BID 90 days nadolol 20 mg PO BEDTIME pantoprazole 40 mg PO DAILY pen needle, diabetic (Comfort EZ Pen [place]) As directed injects once a day sumatriptan succinate 100 mg PO BID PRN tirzepatide (Mounjaro) 7.5 mg (0.5 mL) subcut QWEEK trazodone 100 mg PO BEDTIME PRN 90 days underpads (Goodnites Bed Mats) As directed Tobacco use date assessed: 08/15/23 Dental Screening Dental Screen Date: 08/15/23 Did you have a dental visit in the last 12 months?: No Did you have a dental problem in the last 6 months where you did not have access to dental care?: No Was dental information given to patient?: Patient has dentist HPI 3mth f/u HPI Details Patient comes in today for her follow up visit States that she feels okay She denies any headaches or dizziness Denies any chest pains, no SOB No nausea/vomiting, no abdominal pain No change in bowel habits noted States that her low back pain and joint pains remain adequately controlled on her current Rx She had her follow up labs done a couple of days ago - to discuss her results [facility] Medical History (Updated 03/27/24 @ 13:47 by Christopher Domínguez MD) COVID-19 vaccine series completed Hearing impairment Obesity (BMI 30-39.9) Depression Anxiety Insomnia Vitamin B12 deficiency Vitamin D deficiency Migraine GERD (gastroesophageal reflux disease) Osteoarthritis of knees, bilateral Lumbar degenerative disc disease Asthma Pure hypercholesterolemia Benign essential hypertension Diabetes mellitus Surgical History S/P excision of lipoma (04/30/23) Hx of dilation and curettage History of hysteroscopy History of pubovaginal sling H/O colonoscopy History of suburethral sling procedure (~05/07/12) Ingrown toenail of left foot History of section History of eye surgery History of tonsillectomy History of tubal ligation Family History Father Diabetes Mother Hypertension High cholesterol Family history of thyroid problem Paternal Grandfather Leukemia Social History Housing: Apartment Alcohol intake: never Patient Tobacco Use Status: Never used Tobacco e-Cigarette/Vaping Use: Never Used Second Hand Smoke Exposure: No service: No Current occupational status: disabled Cognitive needs: Yes (cane) Hearing needs: Yes (needs hearing aide) Vision needs: Yes (Glasses) Female Reproductive History Menstrual Age of Menarche: 13 Questionnaire PHQ-9 Over the last 2 weeks, how often have you been bothered by any of the following problems? 1. Little interest or pleasure in doing things: several days 2. Feeling down, depressed, or hopeless: several days 3. Trouble falling or staying asleep, or sleeping too much: several days 4. Feeling tired or having little energy: nearly every day 5. Poor appetite or overeating: not at all 6. Feeling bad about yourself - or that you are a failure or have let yourself or your family down: several days 7. Trouble concentrating on things, such as reading the newspaper or watching television: several days 8. Moving or speaking so slowly that other people could have noticed. Or the opposite - being so fidgety or restless that you have been moving around a lot more than usual: several days 9. Thoughts that you would be better off or of hurting yourself in some way: not at all Total score: 9 Depression Screening Interpretation: Positive Depression Screening Follow-up: Existing condition and In treatment Depression Screening Done: Yes 06591 - PHQ-9 Billing: Yes Source: Developed by Drs. Nii Shah, Leslie Carmona, Gustavo Newton and colleagues, with an educational dani from [employer]. Thrive Questionnaire Date Thrive assessed: 08/15/23 I am a: Patient What is your living situation today?: I have a steady place to live Within the past 12 months, did the food you bought not last and you didn't have the money to get more?: Never true Within the past 12 months, did you worry whether your food would run out before you got money to buy more?: Never true Do you have trouble paying for medicines?: No Do you have trouble getting transportation to medical appointments?: No Do you have trouble paying your heating and electricity bill?: No Do you have trouble taking care of your child, family member or friend?: No Do you have trouble with day-to-day activities such as bathing, preparing meals, shopping, managing finances, etc.?: No Are you currently unemployed and looking for a job?: No Are you interested in more education?: No Currently or been in a relationship where the following occur: no concerns reported THRIVE Score: 0 AUDIT C Alcohol Use Questionnaire (AUDIT-C) 1. How often do you have a drink containing alcohol?: Never 3. How often do you have six or more drinks on one occasion?: Never Total Score: 0 Score Reviewed/Action Taken: Yes SONYA-7 AMB Questionnaire SONYA-7 Date SONYA - 7 assessed: 08/15/23 Feeling nervous, anxious, or on edge: 1 = Several days Not being able to stop or control worryin = Several days Worrying too much about different things: 1 = Several days Trouble relaxin = Several days Being so restless that it is hard to sit still: 0 = Not at all Becoming easily annoyed or irritable: 1 = Several days Feeling afraid as if something awful might happen: 1 = Several days Total SONYA-7 score (0-4 normal; 5-9 mild; 10-14 moderate; 15-21 severe): 6 Source: Developed by Drs. Nii Shah, Leslie Carmona, Gustavo Newton and colleagues, with an educational dani from [employer]. Review of Systems Const Denies chills, Denies fatigue, Denies fever(s), Denies headache(s) and Reports weakness (ONLY when blood sugar readings drop below 130 to 140 mg/dl in AM) ENT Denies dysphagia, Denies dizziness, Denies otalgia, Denies headache(s), Denies neck pain, Denies odynophagia and Denies sore throat Card Denies chest pain, Denies palpitations and Denies dyspnea Resp Denies cough, Denies dyspnea and Denies wheezing GI Denies abdominal pain, Denies constipation, Denies dysphagia, Denies heartburn, Denies diarrhea, Denies nausea, Denies odynophagia and Denies vomiting Denies nocturia, Denies dysuria, Denies urinary hesitancy and Denies urinary urgency Musc Reports back pain (on and off, over the lower back), Reports arthralgias (over both knees) and Denies neck pain Skin/Breast Reports alopecia (recently) and Denies rash Neuro Denies dizziness, Denies headache(s) and Reports weakness (ONLY when blood sugar readings drop below 130 to 140 mg/dl in AM) Psych Denies anxiety Endo Denies fatigue and Denies palpitations Aller/Immun Denies wheezing Physical exam (Primary Care) Vital Signs: Last Vital Signs Pulse 82 08/15/23 13:59 BP 102/70 08/15/23 13:59 Pulse Ox 98 08/15/23 13:59 Oxygen Delivery Method Room Air 08/15/23 13:59 BMI result Body Mass Index 34.9 Tobacco/Smoking Status: Tobacco use Status Tobacco use date assessed 08/15/23 08/15/23 14:08 Patient Tobacco Use Status Never used Tobacco 08/15/23 14:08 e-Cigarette/Vaping Use Never Used 08/15/23 14:08 PHQ-9: PHQ-9 Score PHQ-9: Total score 9 08/15/23 14:35 Depression Screening Interpretation: Positive Depression Screening Follow-up: Existing condition and In treatment Thrive Assessment: Date of Thrive Assessment Date Thrive assessed 08/15/23 08/15/23 14:08 Currently or been in a relationship where the following occur: no concerns reported Const General: no acute distress and alert HENMT Ears: TM's normal bilaterally and EAC's normal Throat: Yes posterior oropharynx normal and Yes tonsils normal (no TP congestion noted) Neck Neck: Yes no lymphadenopathy and Yes supple Resp Auscultation: clear to auscultation bilaterally, no rales and no wheezes Cardio Rate: regular rate Rhythm: regular rhythm Heart sounds: no murmurs GI Palpation (GI): Soft to palpation and nontender Auscultation: normal bowel sounds General: Yes no CVA tenderness Back/Spine/Pelvis Back: no CVA tenderness Thoracic/Lumbar Spine: lumbar spinal tenderness Skin Rashes: no rashes Extrem General: Yes no clubbing, cyanosis or edema Right lower extremity: knee Details: tenderness; no swelling Left lower extremity: knee Details: tenderness; no swelling Results Reviewed Results Reviewed: Laboratory Tests 08/13/23 08/13/23 08/13/23 09:50 09:50 09:50 WBC 9.1 Hgb 14.2 Hct 44.1 Plt Count 298 Sodium 139 Potassium 4.4 Creatinine 0.79 Estimated GFR > 60 Fasting Glucose 170 H Hemoglobin A1c % 7.6 H Calcium 9.9 AST 14 ALT 13 Triglycerides 190 H Cholesterol 120 LDL Cholesterol, Calc 42 HDL Cholesterol 40 L 25-OH Vitamin D Total 45.9 TSH 1.23 Ur Specific [place] Urine Protein Urine Glucose (UA) Urine Blood Urine Nitrite Ur Leukocyte Esterase 08/13/23 08/13/23 08/13/23 10:00 10:00 10:00 WBC Hgb Hct Plt Count Sodium Potassium Creatinine Estimated GFR Fasting Glucose Hemoglobin A1c % Calcium AST ALT Triglycerides Cholesterol LDL Cholesterol, Calc HDL Cholesterol 25-OH Vitamin D Total TSH Ur Specific [place] >= 1.030 H Urine Protein Negative Urine Glucose (UA) >=1000 H Urine Blood Negative Urine Nitrite Negative Ur Leukocyte Esterase Negative Coding Level of Care Code Est Pt Level 4 (51041) Diagnoses Type 2 diabetes mellitus without complication, without long-term current use of insulin E11.9 Diabetes mellitus complication status: without complication Diabetes mellitus intermediate accountant insulin use: without senior care use Diabetes mellitus type: type 2 Benign essential hypertension I10 Pure hypercholesterolemia E78.00 Moderate persistent asthma without complication J45.40 Asthma complication type: uncomplicated Asthma persistence: persistent Asthma severity: moderate Migraine without aura and without status migrainosus, not intractable G43.009 Intractability: not intractable Migraine type: without aura Status migrainosus presence: without status migrainosus Lumbar degenerative disc disease M51.36 Primary osteoarthritis of both knees M17.0 Osteoarthritis type: primary Gastroesophageal reflux disease without esophagitis K21.9 Esophagitis presence: without esophagitis Vitamin D deficiency E55.9 Vitamin B12 deficiency E53.8 Primary insomnia F51.01 Insomnia type: primary Anxiety F41.9 Episode of recurrent major depressive disorder, unspecified depression episode severity F33.9 Active/Remission status: currently active Depression Type: major depressive disorder Major depression episode severity: unspecified Major depression recurrence: recurrent Obesity (BMI 30-39.9) E66.9
[2023-08-15 13:59] VITALS: BP 102/70; PULSE 82; O2SAT 98; BMI 34.9
== END 2023-08-15 15:01 | disposition home or self-care (01) ==
PROVIDERS: PCP Internal Medicine; Visit Provider Internal Medicine
DX: E11.9 Type 2 diabetes mellitus without complications (principal); I10 Essential (primary) hypertension; E78.00 Pure hypercholesterolemia, unspecified; J45.40 Moderate persistent asthma, uncomplicated; G43.009 Migraine without aura, not intractable, without status migrainosus; M51.36 Other intervertebral disc degeneration, lumbar region; M17.0 Bilateral primary osteoarthritis of knee; K21.9 Gastro-esophageal reflux disease without esophagitis; E55.9 Vitamin D deficiency, unspecified; E53.8 Deficiency of other specified B group vitamins; F51.01 Primary insomnia; F41.9 Anxiety disorder, unspecified; F33.9 Major depressive disorder, recurrent, unspecified; E66.9 Obesity, unspecified
CPT/HCPCS: 99499

== ENCOUNTER 2023-09-12 08:38 | Outpatient (REF) | payer OTHER, SELFPAY ==
[2023-09-12 09:43] LABS: Anion Gap 11 (12-20); Blood Urea Nitrogen 14 mg/dL (9-16); Calcium 9.5 mg/dL (8.4-10.2); Carbon Dioxide 29 mmol/L (22-29); Chloride 104 mmol/L (96-108); Cholesterol 135 mg/dL (<200); Estimated Glomerular Filt Rate > 60; Glucose Random 153 mg/dL (60-115); HDL Cholesterol 38 mg/dL (>40); LDL Cholesterol Calculated 70 mg/dL (<100); Potassium 4.4 mmol/L (3.3-5.1); Sodium 140 mmol/L (135-145); Triglycerides 137 mg/dL (<150)
== END 2023-09-12 08:39 | disposition home or self-care (01) ==
LOC: HO.LAB 08:38
PROVIDERS: PCP Internal Medicine; Visit Provider Internal Medicine Endocrinology, Diabetes & Metabolism
DX: E78.00 Pure hypercholesterolemia, unspecified (principal); E11.9 Type 2 diabetes mellitus without complications
CPT/HCPCS: 36415; 80048; 80061

== ENCOUNTER 2023-09-13 10:42 | Outpatient (AMB) | payer OTHER, SELFPAY ==
--- NOTE | 2023-09-13 10:44 | A.OFFVIS_ITS ---
Vital Signs 09/13/23 10:45 Height 5 ft 6 in Weight 220 lb 14.451 oz BMI 35.7 BP 126/74 Blood Pressure Location Lt brachial Position Sitting Pulse 103 H Pulse Source Pulse Oximeter Intake Visit Reasons: DM-confirmed Intake Note: Patient presents today to follow up on D2MT. 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 Required: No Accompanied by: Self / Same As Patient Allergies aspirin [ASPIRIN] Allergy (Intermediate, Verified 09/13/23 10:49) ITCH, hives diphenhydramine [From Benadryl] Allergy (Intermediate, Verified 09/13/23 10:49) hives latex [LATEX] Allergy (Intermediate, Verified 09/13/23 10:49) Itching oxybutynin Allergy (Unknown, Verified 09/13/23 10:49) unknown dog dander [DOG] Adverse Reaction (Intermediate, Verified 09/13/23 10:49) sinus problems environmental allergies Adverse Reaction (Intermediate, Verified 09/13/23 10:49) sinus problems gabapentin Adverse Reaction (Intermediate, Verified 09/13/23 10:49) difficulty sleeping Penicillins [PENICILLINS] Adverse Reaction (Intermediate, Verified 09/13/23 10:49) Faint Sulfa (Sulfonamide Antibiotics) Adverse Reaction (Intermediate, Verified 09/13/23 10:49) nausea, vomiting, myalgia, headache Medication List - Last Reconciled 09/13/23 by Nii Hernandez MD acetaminophen-codeine 300-30 mg 1 tab PO Q6H PRN 28 days albuterol sulfate 90 mcg/actuation 2 puffs PO Q4H PRN atorvastatin 20 mg PO DAILY blood sugar diagnostic (FreeStyle Lite Strips) 1 strip miscellaneous TID blood-glucose meter (FreeStyle Lite Meter kit) As directed cholecalciferol (vitamin D3) 25 mcg PO DAILY citalopram 40 mg PO DAILY 30 days cyanocobalamin (vitamin B-12) 1,000 mcg PO DAILY cyclobenzaprine 5 mg PO BID PRN docusate sodium (DOK) 100 mg PO DAILY PRN empagliflozin (Jardiance) 25 mg PO DAILY flash glucose scanning reader (TEXbaseStyle Faith 2 Stendal) DIRECTED flash glucose sensor (FreeStyle Faith 2 Sensor kit) As directed change every 14 days [incontinent pads As directed two/daily ] insulin glargine (Lantus Solostar U-100 Insulin) 12 units (0.12 mL) subcut QPM lancets (FreeStyle Lancets) 28 gauge topical TID loratadine (Allergy Relief (loratadine)) 10 mg PO DAILY 30 days lorazepam 0.5 mg PO BEDTIME PRN 30 days metformin 1,000 mg PO BID 90 days nadolol 20 mg PO BEDTIME pantoprazole 40 mg PO DAILY pen needle, diabetic (Comfort EZ Pen [place]) As directed injects once a day sumatriptan succinate 100 mg PO BID PRN tirzepatide (Mounjaro) 7.5 mg (0.5 mL) subcut QWEEK trazodone 100 mg PO BEDTIME PRN 90 days underpads (Goodnites Bed Mats) As directed HPI Comments Details: 63 YO F who is seen in consultation for T2DM at the request of PCP. Initially diagnosed with T2DM in 5 yrs . Was initially started on treatment with metformin 1000 mg BID . Current regimen metformin 1000 mg BID Mounjaro 7.5 mg Qwkly Jardiance 25 mg QD Lantus 12 units Faith download shows she is using the sensor 75% of the time. Average glucose is 165 with variability 18.9%. 73% range with 27% hyperglycemia and no hypoglycemia Family history of T2DM in father and grandmother Type 2 DM . Denies hypoglycemia Has eyes checked yearly, last eye exam in 11/2022 , denies retinopathy. Denies neuropathy, not sees podiatry. Denies nephropathy,Not on BRIANNA/ARB. . Has HLD, Not on statin. Denies CAD. Saw diabetes education. [facility] Medical History Uncontrolled type 2 diabetes mellitus with hyperglycemia COVID-19 vaccine series completed Hearing impairment Obesity (BMI 30-39.9) Depression Anxiety Insomnia Vitamin B12 deficiency Vitamin D deficiency Migraine GERD (gastroesophageal reflux disease) Osteoarthritis of knees, bilateral Lumbar degenerative disc disease Asthma Pure hypercholesterolemia Benign essential hypertension Diabetes mellitus Surgical History S/P excision of lipoma (04/30/23) Hx of dilation and curettage History of hysteroscopy History of pubovaginal sling H/O colonoscopy History of suburethral sling procedure (~05/07/12) Ingrown toenail of left foot History of section History of eye surgery History of tonsillectomy History of tubal ligation Family History Father Diabetes Mother Hypertension High cholesterol Family history of thyroid problem Paternal Grandfather Leukemia Social History Housing: Apartment Alcohol intake: never Patient Tobacco Use Status: Never used Tobacco e-Cigarette/Vaping Use: Never Used Second Hand Smoke Exposure: No service: No Current occupational status: disabled Cognitive needs: Yes (cane) Hearing needs: Yes (needs hearing aide) Vision needs: Yes (Glasses) Female Reproductive History Menstrual Age of Menarche: 13 Physical Exam Vital Signs: Last Vital Signs Pulse 103 H 09/13/23 10:45 BP 126/74 09/13/23 10:45 BMI result Body Mass Index 35.7 Absence of Cushingoid features. Absence of acromegalic features. Neck exam reveals nl size thyroid about 15 gms. No thyroid nodules palpable. No carotid bruits present. Lungs CTA. Heart S1 S2, Reg R/R. No M/R/ G. Skin exam reveals absence of vitiligo or acanthosis nigricans. Abdominal exam reveals Soft NT/ND with NA BS. No organomegaly present. Neck Other: . Extrem Other: Visual exam of foot performed. No ulcerations or open lesions. No onchomycosis, no callouses.Pulses 2 + distally Sensation intact to monofilament exam. Vibratory sensation sensed is intact with 128 Hz tuning fork Assessment & Plan Assessment & Plan (1) Diabetes mellitus: Comment: taking metformin & januvia; Glimepiride added 11/19/20 Code(s): E11.9 - Type 2 diabetes mellitus without complications Category: Medical Qualifiers: Diabetes mellitus complication status: without complication Diabetes mellitus detention insulin use: without detention use Diabetes mellitus type: type 2 Qualified Code(s): E11.9 - Type 2 diabetes mellitus without compli cations Plan: This is a 62-year-old female with history of type 2 diabetes being treated metformin and Trulicity and Jardiance with excellent improved glycemic control and no known microvascular or macrovascular complications. Plan is continue the current regimen. 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
[2023-09-13 10:45] VITALS: BP 126/74; PULSE 103; BMI 35.7
[2023-09-13 10:57] LABS: Glucose, Whole Blood 179 mg/dL (60-115)
== END 2023-09-13 11:02 | disposition home or self-care (01) ==
PROVIDERS: PCP Internal Medicine; Visit Provider Internal Medicine Endocrinology, Diabetes & Metabolism
DX: E11.9 Type 2 diabetes mellitus without complications (principal); E78.00 Pure hypercholesterolemia, unspecified
CPT/HCPCS: 99214

== ENCOUNTER → 2023-09-13 10:42 | Outpatient (BNVA) | payer OTHER, SELFPAY | PROVIDERS: PCP Internal Medicine; Visit Provider Internal Medicine Endocrinology, Diabetes & Metabolism | DX: E11.9 Type 2 diabetes mellitus without complications (principal); E78.00 Pure hypercholesterolemia, unspecified; Z79.4 Long term (current) use of insulin; Z79.84 Long term (current) use of oral hypoglycemic drugs; Z79.85 Long-term (current) use of injectable non-insulin antidiabetic drugs | CPT/HCPCS: 82947; 99212 ==

== ENCOUNTER 2023-10-25 08:41 | Outpatient (REF) | payer OTHER, SELFPAY ==
[2023-10-25 09:08] LABS: MANUAL DIFF FLAG NO
[2023-10-25 09:43] LABS: Basophils Absolute Auto 0.1 X10*3/uL (0.0-0.2); Basophils Percent Auto 0.7 % (0-2); Eosinophils Absolute Auto 0.1 X10*3/uL (0.0-0.4); Hematocrit 43.3 % (37.0-47.0); Hemoglobin 13.9 g/dl (12.0-16.0); Imm Gran Abs Auto 0.04 X10*3/uL (0.00-0.03); Imm Gran Pct Auto 0.4 % (0.0-0.4); Lymphocytes Absolute Auto 3.8 X10*3/uL (1.2-4.9); Lymphocytes Percent Auto 42.4 % (20-40); Mean Corpuscular HGB Conc 32.1 g/dl (31.0-35.0); Mean Corpuscular Volume 87.3 fL (80.0-98.0); Mean Platelet Volume 9.1 fL (9.4-12.3); Monocytes Absolute Auto 0.6 X10*3/uL (0.1-1.2); Monocytes Percent Auto 6.1 % (2-11); Neutrophils Absolute Auto 4.5 x10*3/uL (2.0-8.3); Neutrophils Percent Auto 49.4 % (45-73); Platelet Count 324 X10*3/uL (160-400); Red Blood Count 4.96 X10*6/uL (4.20-5.50); Red Cell Distribution Width 14.3 % (11.0-16.0); White Blood Count 9.1 X10*3/uL (4.8-10.8)
[2023-10-25 09:49] LABS: Estimated Average Glucose 171 mg/dL; Hemoglobin A1c % 7.6 % (<6.0)
[2023-10-25 10:21] LABS: Alanine Aminotransferase 10 U/L (0-31); Albumin Level 4.2 g/dL (3.5-5.0); Alkaline Phosphatase 79 U/L (39-117); Anion Gap 11 (12-20); Aspartate Amino Transferase 10 U/L (5-31); Bilirubin Total 0.3 mg/dL (0.0-1.0); Blood Urea Nitrogen 14 mg/dL (9-16); Calcium 9.7 mg/dL (8.4-10.2); Carbon Dioxide 30 mmol/L (22-29); Chloride 106 mmol/L (96-108); Cholesterol 147 mg/dL (<200); Estimated Glomerular Filt Rate > 60; Glucose Fasting 144 mg/dL (60-99); HDL Cholesterol 42 mg/dL (>40); LDL Cholesterol Calculated 72 mg/dL (<100); Potassium 4.7 mmol/L (3.3-5.1); Sodium 142 mmol/L (135-145); Total Protein 7.6 g/dL (6.5-8.0); Triglycerides 167 mg/dL (<150)
[2023-10-25 10:41] LABS: TSH reflex Free T4 1.14 uIU/mL (0.32-4.0); Vitamin D 25-OH Total 46.3 ng/mL (>30)
[2023-10-25 10:53] LABS: Folate 9.4 ng/mL (> or = 4.0); Vitamin B12 211 pg/mL (200-900)
== END 2023-10-25 08:42 | disposition home or self-care (01) ==
LOC: HO.LAB 08:41
PROVIDERS: PCP Internal Medicine; Visit Provider Internal Medicine
DX: E11.9 Type 2 diabetes mellitus without complications (principal); E78.00 Pure hypercholesterolemia, unspecified; D64.9 Anemia, unspecified; E55.9 Vitamin D deficiency, unspecified; E53.8 Deficiency of other specified B group vitamins
CPT/HCPCS: 36415; 80053; 80061; 82306; 82607; 82746; 83036; 84443; 85025

== ENCOUNTER 2023-11-14 10:04 | Outpatient (REF) | payer OTHER, SELFPAY | END 2023-11-14 10:05 | disposition home or self-care (01) | LOC: HO.MAMMO 10:04 | PROVIDERS: PCP Internal Medicine; Visit Provider Internal Medicine | DX: Z12.31 Encounter for screening mammogram for malignant neoplasm of breast (principal) | CPT/HCPCS: 77063; 77067 ==

== ENCOUNTER → 2023-11-14 10:45 | Outpatient (BNV) | payer OTHER, SELFPAY | PROVIDERS: PCP Internal Medicine; Visit Provider Radiology Diagnostic Radiology | DX: Z12.31 Encounter for screening mammogram for malignant neoplasm of breast (principal) | CPT/HCPCS: 77063; 77067 ==

== ENCOUNTER 2023-12-06 10:33 | Outpatient (AMB) | payer OTHER, SELFPAY ==
[2023-12-06 10:56] VITALS: BMI 35.5
--- NOTE | 2023-12-06 10:56 | A.OFFVIS_ITS ---
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 Last injection was done in of 2020 with Jenelle Marin. Patient reports that this injction was helpful and she would like to repeat injection today, Allergies aspirin [ASPIRIN] Allergy (Intermediate, Verified 12/06/23 11:02) ITCH, hives diphenhydramine [From Benadryl] Allergy (Intermediate, Verified 12/06/23 11:02) hives latex [LATEX] Allergy (Intermediate, Verified 12/06/23 11:02) Itching oxybutynin Allergy (Unknown, Verified 12/06/23 11:02) unknown dog dander [DOG] Adverse Reaction (Intermediate, Verified 12/06/23 11:02) sinus problems environmental allergies Adverse Reaction (Intermediate, Verified 12/06/23 11:02) sinus problems gabapentin Adverse Reaction (Intermediate, Verified 12/06/23 11:02) difficulty sleeping Penicillins [PENICILLINS] Adverse Reaction (Intermediate, Verified 12/06/23 11:02) Faint Sulfa (Sulfonamide Antibiotics) Adverse Reaction (Intermediate, Verified 12/06/23 11:02) nausea, vomiting, myalgia, headache HPI HPI 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 Patient reports that she previously had injections with Dr. Almanzar, with last injection being performed in 2020 to great effect. The patient reports that symptoms began again approximately 3 months ago, over which time they have worsened and she now experiences significant right knee pain, difficulty with ambulation, particularly up the stairs, as well as pain at night. Patient has tried Tylenol and ibuprofen, to minimal effect. Patient would like to get a repeat injection this time. Patient also reports that she has begun to experience some very mild discomfort in her left knee, but she does not feel this warrants any sort of treatment at this time. [facility] Medical History Uncontrolled type 2 diabetes mellitus with hyperglycemia COVID-19 vaccine series completed Hearing impairment Obesity (BMI 30-39.9) Depression Anxiety Insomnia Vitamin B12 deficiency Vitamin D deficiency Migraine GERD (gastroesophageal reflux disease) Osteoarthritis of knees, bilateral Lumbar degenerative disc disease Asthma Pure hypercholesterolemia Benign essential hypertension Diabetes mellitus Surgical History S/P excision of lipoma (04/30/23) Hx of dilation and curettage History of hysteroscopy History of pubovaginal sling H/O colonoscopy History of suburethral sling procedure (~05/07/12) Ingrown toenail of left foot History of section History of eye surgery History of tonsillectomy History of tubal ligation Family History Father Diabetes Mother Hypertension High cholesterol Family history of thyroid problem Paternal Grandfather Leukemia Social History Housing: Apartment Alcohol intake: never Patient Tobacco Use Status: Never used Tobacco e-Cigarette/Vaping Use: Never Used Second Hand Smoke Exposure: No service: No Current occupational status: disabled Cognitive needs: Yes (cane) Hearing needs: Yes (needs hearing aide) Vision needs: Yes (Glasses) Female Reproductive History Menstrual Age of Menarche: 13 Review of Systems Const All systems reviewed & are unremarkable except as noted in HPI and below Physical Exam Vital Signs: BMI result Body Mass Index 35.5 Extrem Other: Mild edema noted of the right knee, mostly suprapatellar No erythema, ecchymosis, evidence of infection No lacerations or abrasions Patient reports mild tenderness to palpation about the right knee, particularly on the lateral anterior knee. Patient is able to extend the knee to 0 degrees and flex to approximately 120 degrees Mild discomfort with patellar grind Office Procedures Joint Injection/Drain Joint Injection/Drain Primary Site: right knee Prep: site was prepped using aseptic technique Injected: 40 mg of, DepoMedrol, with 8 mL of, 1% plain lidocaine and in the joint Approach Used: anterolateral Procedure: The patient tolerated the procedure well and there was some relief w ith the local anesthesia Coding Details: Right knee intra-articular injection 30076 - Large joint Procedure code (CPT) selection complete Results Reviewed Results Reviewed: X-rays taken in the office today and independently reviewed by Ancelmo aguilar PA-C, demonstrate mild osteoarthritis of bilateral knees, right worse than left. Assessment & Plan Assessment & Plan (1) Osteoarthritis of right knee: Code(s): M17.11 - Unilateral primary osteoarthritis, right knee Category: Medical Qualifiers: Osteoarthritis type: primary Qualified Code(s): M17.11 - Unilateral primary osteoarthritis, right knee Plan 1. Osteoarthritis of the right knee Patient reports that previous injection got her years of relief, We will proceed with repeat injection today The risks and benefits of a steroid injection including but not limited to risk of damage to blood vessels, nerves, tendons, infection, skin bleaching, failure to improve symptoms, increased pain, and possible need for further injections or other intervention were discussed with the patient and the patient wishes to proceed with the steroid injection. Once consent was obtained, I aseptically prepped the joint space just lateral to the distal pole of the right patella. I then injected the right knee with a combination of 40 mg of Depo-Medrol, and 8 mL of 1% lidocaine. The patient tolerated the procedure well with no complications. Patient has history of diabetes, and is advised that injection can cause rapid increase in blood sugar readings. Patient is advised to monitor this and increase any potential medication doses accordingly. Follow-up prn with any acute concerns Orders: Orders XR foot RT min 3V Today M25.561 - Pain in right knee Coding Level of Care Code New Pt Level 3 (82869) Diagnoses Primary osteoarthritis of right knee M17.11 Osteoarthritis type: primary CPT Codes Coding - 17351 Large joint: 22912 - Large joint ([id number])
== END 2023-12-06 12:52 | disposition home or self-care (01) ==
PROVIDERS: PCP Internal Medicine
DX: M17.11 Unilateral primary osteoarthritis, right knee (principal)
CPT/HCPCS: 20610; 99203

== ENCOUNTER 2023-12-06 10:45 | Outpatient (REF) | payer OTHER, SELFPAY ==
--- NOTE | ~2023-12-06 | XR_ITS ---
EXAMINATION: XR KNEE AP STANDING CLINICAL INFORMATION: Right knee pain COMPARISON: Radiographs 05/17/2020 TECHNIQUE: AP bilateral standing view of the knees was obtained. FINDINGS: Mild medial compartment narrowing of both knees, with small marginal osteophytes in the medial and lateral compartments bilaterally. No acute osseous abnormality on this single view. XR/XR knee standing BI IMPRESSION: Mild medial compartment osteoarthritis of both knees.
== END 2023-12-06 10:46 | disposition home or self-care (01) ==
LOC: HO.HOSX 10:45
DX: M17.11 Unilateral primary osteoarthritis, right knee (principal)
CPT/HCPCS: 20610; 73565; 99202; J1010

== ENCOUNTER 2023-12-10 13:02 | Outpatient (AMB) | payer OTHER, SELFPAY ==
--- NOTE | 2023-12-10 13:19 | MHC.PC.OV ---
Vital Signs 12/10/23 13:20 Height 5 ft 6 in Weight 216 lb 2 oz BMI 34.9 BP 112/66 Blood Pressure Location Rt brachial Position Sitting Pulse 77 Pulse Source Pulse Oximeter Pulse Oximetry (%) 98 Oxygen Delivery Method Room Air Intake Visit Reasons: DM Intake Note: Patient is here to follow up on DM. Plate Stacker Required: No Cardiac Rehabilitation Specialist: Not Required per policy Accompanied by: Self / Same As Patient Allergies aspirin [ASPIRIN] Allergy (Intermediate, Verified 12/10/23 13:49) ITCH, hives diphenhydramine [From Benadryl] Allergy (Intermediate, Verified 12/10/23 13:49) hives latex [LATEX] Allergy (Intermediate, Verified 12/10/23 13:49) Itching oxybutynin Allergy (Unknown, Verified 12/10/23 13:49) unknown dog dander [DOG] Adverse Reaction (Intermediate, Verified 12/10/23 13:49) sinus problems environmental allergies Adverse Reaction (Intermediate, Verified 12/10/23 13:49) sinus problems gabapentin Adverse Reaction (Intermediate, Verified 12/10/23 13:49) difficulty sleeping Penicillins [PENICILLINS] Adverse Reaction (Intermediate, Verified 12/10/23 13:49) Faint Sulfa (Sulfonamide Antibiotics) Adverse Reaction (Intermediate, Verified 12/10/23 13:49) nausea, vomiting, myalgia, headache Medication List - Last Reconciled 12/10/23 by Christopher Domínguez MD acetaminophen-codeine 300-30 mg 1 tab PO Q6H PRN 28 days albuterol sulfate 90 mcg/actuation 2 puffs PO Q4H PRN atorvastatin 20 mg PO DAILY blood sugar diagnostic (FreeStyle Lite Strips) 1 strip miscellaneous TID blood-glucose meter (FreeStyle Lite Meter kit) As directed cholecalciferol (vitamin D3) 25 mcg PO DAILY citalopram 40 mg PO DAILY 30 days cyanocobalamin (vitamin B-12) 1,000 mcg PO DAILY cyclobenzaprine 5 mg PO BID PRN docusate sodium 100 mg PO DAILY PRN empagliflozin (Jardiance) 25 mg PO DAILY flash glucose scanning reader (Survival MediaStyle Faith 2 [place]) DIRECTED flash glucose sensor (FreeStyle Faith 2 Sensor kit) As directed change every 14 days [incontinent pads As directed two/daily ] insulin glargine (Lantus Solostar U-100 Insulin) 12 units (0.12 mL) subcut QPM lancets (FreeStyle Lancets) 28 gauge topical TID loratadine (Allergy Relief (loratadine)) 10 mg PO DAILY 30 days lorazepam 0.5 mg PO BEDTIME PRN 30 days metformin 1,000 mg PO BID 90 days nadolol 20 mg PO BEDTIME pantoprazole 40 mg PO DAILY pen needle, diabetic (Comfort EZ Pen [place]) As directed injects once a day sumatriptan succinate 100 mg PO BID PRN tirzepatide (Mounjaro) 7.5 mg (0.5 mL) subcut QWEEK trazodone 100 mg PO BEDTIME PRN 90 days underpads (Goodnites Bed Mats) As directed Tobacco use date assessed: 12/10/23 Dental Screening Dental Screen Date: 08/15/23 HPI DM HPI Details Patient comes in today for her follow up visit States that she currently feels okay; missed her appt earlier this month as she was not feeling good that day - thinks that she had a cold then She denies any headaches or dizziness; denies any fever or sore throat Denies any chest pains, no SOB No nausea/vomiting, no abdominal pain No change in bowel habits noted States that her low back pain and joint pains remain adequately controlled on her current Rx Had her follow up labs done last month - to discuss her results [facility] Medical History Uncontrolled type 2 diabetes mellitus with hyperglycemia COVID-19 vaccine series completed Hearing impairment Obesity (BMI 30-39.9) Depression Anxiety Insomnia Vitamin B12 deficiency Vitamin D deficiency Migraine GERD (gastroesophageal reflux disease) Osteoarthritis of knees, bilateral Lumbar degenerative disc disease Asthma Pure hypercholesterolemia Benign essential hypertension Diabetes mellitus Surgical History S/P excision of lipoma (04/30/23) Hx of dilation and curettage History of hysteroscopy History of pubovaginal sling H/O colonoscopy History of suburethral sling procedure (~05/07/12) Ingrown toenail of left foot History of section History of eye surgery History of tonsillectomy History of tubal ligation Family History Father Diabetes Mother Hypertension High cholesterol Family history of thyroid problem Paternal Grandfather Leukemia Social History Housing: Apartment Alcohol intake: never Patient Tobacco Use Status: Never used Tobacco e-Cigarette/Vaping Use: Never Used Second Hand Smoke Exposure: No service: No Current occupational status: disabled Cognitive needs: Yes (cane) Hearing needs: Yes (needs hearing aide) Vision needs: Yes (Glasses) Female Reproductive History Menstrual Age of Menarche: 13 Questionnaire Thrive Questionnaire Date Thrive assessed: 08/15/23 SONYA-7 AMB Questionnaire SONYA-7 Date SONYA - 7 assessed: 08/15/23 Source: Developed by Drs. Nii Shah, Leslie Carmona, Gustavo Newton and colleagues, with an educational dani from [employer]. Review of Systems Const Denies chills, Denies fatigue, Denies fever(s) and Denies headache(s) ENT Denies dysphagia, Denies dizziness, Denies otalgia, Denies headache(s), Denies neck pain, Denies odynophagia and Denies sore throat Card Denies chest pain, Denies palpitations and Denies dyspnea Resp Denies cough, Denies dyspnea and Denies wheezing GI Denies abdominal pain, Denies constipation, Denies dysphagia, Denies heartburn, Denies diarrhea, Denies nausea, Denies odynophagia and Denies vomiting Denies nocturia, Denies dysuria, Denies urinary hesitancy and Denies urinary urgency Musc Reports back pain (on and off, over the lower back), Reports arthralgias (over both knees), Denies neck pain and Reports tingling (occasionally, in the right leg) Skin/Breast Denies rash Neuro Denies dizziness, Denies headache(s) and Reports tingling (occasionally, in the right leg) Psych Denies anxiety Endo Denies fatigue and Denies palpitations Aller/Immun Denies wheezing Physical exam (Primary Care) Vital Signs: Last Vital Signs Pulse 77 12/10/23 13:20 BP 112/66 12/10/23 13:20 Pulse Ox 98 12/10/23 13:20 Oxygen Delivery Method Room Air 12/10/23 13:20 BMI result Body Mass Index 34.9 Tobacco/Smoking Status: Tobacco use Status Tobacco use date assessed 12/10/23 12/10/23 13:20 Patient Tobacco Use Status Never used Tobacco 12/10/23 13:20 e-Cigarette/Vaping Use Never Used 12/10/23 13:20 Thrive Assessment: Date of Thrive Assessment Date Thrive assessed 08/15/23 12/10/23 13:20 Const General: no acute distress and alert HENMT Ears: TM's normal bilaterally and EAC's normal Throat: Yes posterior oropharynx normal and Yes tonsils normal (no TP congestion noted) Neck Neck: Yes no lymphadenopathy and Yes supple Thyroid: Thyroid normal Resp Auscultation: clear to auscultation bilaterally, no rales and no wheezes Cardio Rate: regular rate Rhythm: regular rhythm Heart sounds: no murmurs GI Palpation (GI): Soft to palpation and nontender Auscultation: normal bowel sounds General: Yes no CVA tenderness Back/Spine/Pelvis Back: no CVA tenderness Thoracic/Lumbar Spine: lumbar spinal tenderness Skin Rashes: no rashes Extrem General: Yes no clubbing, cyanosis or edema Right lower extremity: knee Details: tenderness; no swelling Left lower extremity: knee Details: tenderness; no swelling Results Reviewed Results Reviewed: Laboratory Tests 10/25/23 09:06 WBC 9.1 Hgb 13.9 Hct 43.3 Plt Count 324 Sodium 142 Potassium 4.7 Creatinine 0.70 Estimated GFR > 60 Fasting Glucose 144 H Hemoglobin A1c % 7.6 H Calcium 9.7 AST 10 ALT 10 Triglycerides 167 H Cholesterol 147 LDL Cholesterol, Calc 72 HDL Cholesterol 42 Vitamin B12 211 25-OH Vitamin D Total 46.3 TSH 1.14 Assessment and Plan Assessment & Plan (1) Diabetes mellitus: Comment: taking metformin & januvia; Glimepiride added 11/19/20 Code(s): E11.9 - Type 2 diabetes mellitus without complications Qualifiers: Diabetes mellitus type: type 2 Diabetes mellitus termite technician insulin use: without fdc use Diabetes mellitus complication status: without complication Qualified Code(s): E11.9 - Type 2 diabetes mellitus without complications Plan: Her HgbA1c wasl at 7.6% on her labs done last month (it was also at 7.6% a few months ago in July 2023) - goal is at least <7.5%, in light of patient's symptoms of dizziness and weakness when her fasting blood sugar dips under 140 mg/dL Reinforced diabetic diet C-peptide level was normal and SONYA Ab were negative when checked previously Continue Metformin 1000 mg BID, Trulicity 3.0 mg SQ once a week and Jardiance 25 mg QD Patient was taken off Januvia 100 mg QD and Glimepiride 2 mg Q AM over the past year Follow up with endocrinology () as scheduled (2) Benign essential hypertension: Code(s): I10 - Essential (primary) hypertension Plan: Reinforced low-sodium diet -? goal is systolic BP of at least 120 to 130 mm or less Patient is reminded to continue monitoring her blood pressure regularly (3) Pure hypercholesterolemia: Code(s): E78.00 - Pure hypercholesterolemia, unspecified Plan: Results of her labs done last month reviewed and discussed with patient Reinforced low cholesterol diet Continue Atorvastatin 10 mg QD Will recheck her labs and fasting lipids in 3 months for follow-up (4) Asthma: Comment: uses prn albuterol inhaler Code(s): J45.909 - Unspecified asthma, uncomplicated Qualifiers: Asthma severity: moderate Asthma persistence: persistent Asthma complication type: uncomplicated Qualified Code(s): J45.40 - Moderate persistent asthma, uncomplicated Plan: Stable Continue Advair HFA 115-21 mcg 2 puffs twice a day and Albuterol inhaler 2 puffs 4 times a day as needed (5) Migraine: Code(s): G43.909 - Migraine, unspecified, not intractable, without status migrainosus Qualifiers: Migraine type: without aura Status migrainosus presence: without status migrainosus Intractability: not intractable Qualified Code(s): G43.009 - Migraine without aura, not intractable, without status migrainosus Plan: States that her headaches have been stable lately Continue Sumatriptan 100 mg PRN and Nadolol 20 mg daily at bedtime for her headache prophylaxis (6) Lumbar degenerative disc disease: Code(s): M51.36 - Other intervertebral disc degeneration, lumbar region Plan: Reinforced activity and weight lifting restrictions Lumbar spine x-rays done back in 2017 showed (+) lumbar spine facet arthritis Continue Tylenol with codeine (#3) 1 tablet every 6 hours as needed for pain (7) Osteoarthritis of knees, bilateral: Code(s): M17.0 - Bilateral primary osteoarthritis of knee Qualifiers: Osteoarthritis type: primary Qualified Code(s): M17.0 - Bilateral primary osteoarthritis of knee Plan: Continue Acetaminophen PRN for pain Follow-up with Orthopedics as scheduled - gets cortisone injections in her knees as needed for pain relief (8) GERD (gastroesophageal reflux disease): Code(s): K21.9 - Gastro-esophageal reflux disease without esophagitis Qualifiers: Esophagitis presence: without esophagitis Qualified Code(s): K21.9 - Gastro-esophageal reflux disease without esophagitis Plan: Dietary restrictions reinforced Continue Pantoprazole 40 mg daily Patient's recent GI symptoms suggest early gastroparesis even though she had a normal gastric emptying study done back in 2019 Follow up with GI as scheduled (9) Vitamin D deficiency: Code(s): E55.9 - Vitamin D deficiency, unspecified Plan: Continue Vitamin D3 1000 units QD (10) Vitamin B12 deficiency: Code(s): E53.8 - Deficiency of other specified B group vitamins Plan: She is advised that her B12 level has dropped from previous and is now at 211 pg/ml, which is close to the cut off (200) and that this may be contributing to her recent right leg symptoms (tingling) Have advised patient to make sure she is taking her Vitamin B12 tablets 1000 mcg QD (11) Insomnia: Code(s): G47.00 - Insomnia, unspecified Qualifiers: Insomnia type: primary Qualified Code(s): F51.01 - Primary insomnia Plan: Sleep hygiene reinforced Continue Trazodone 100 mg daily at bedtime as needed (12) Anxiety: Code(s): F41.9 - Anxiety disorder, unspecified Plan: Continue Lorazepam 0.5 mg once a day at bedtime as needed and Hydroxyzine 10 mg 3 times a day PRN (13) Depression: Code(s): F32.9 - Major depressive disorder, single episode, unspecified Qualifiers: Depression Type: major depressive disorder Major depression recurrence: recurrent Active/Remission status: currently active Major depression episode severity: unspecified Qualified Code(s): F33.9 - Major depressive disorder, recurrent, unspecified Plan: Continue Citalopram 40 mg QD Follow-up with Psychiatry as scheduled (14) Obesity (BMI 30-39.9): Code(s): E66.9 - Obesity, unspecified Plan: Reinforced diet/exercise as tolerated/lose weight Plan Follow up in 3 months Orders: Orders Hemoglobin A1c 3 Months E11.9 - Type 2 diabetes mellitus without complications Complete Blood Count Auto Diff 3 Months D64.9 - Anemia, unspecified Comprehensive [employer] Panel Fast 3 Months E78.00 - Pure hypercholesterolemia, unspecified UA CC w/rflx Micro + Cult 3 Months R30.0 - Dysuria TSH reflex Free T4 3 Months E78.00 - Pure hypercholesterolemia, unspecified Microalbumin, Random (w Creat) 3 Months E11.9 - Type 2 diabetes mellitus without complications Lipid Panel 3 Months E78.00 - Pure hypercholesterolemia, unspecified Vitamin D 25-OH Total 3 Months E55.9 - Vitamin D deficiency, unspecified Vitamin B12 and Folate 3 Months E53.8 - Deficiency of other specified B group vitamins Coding Level of Care Code Est Pt Level 4 (04581) Complex EM visit Add On G2211 Diagnoses Type 2 diabetes mellitus without complication, without long-term current use of insulin E11.9 Diabetes mellitus type: type 2 Diabetes mellitus termite technician insulin use: without termite technician use Diabetes mellitus complication status: without complication Benign essential hypertension I10 Pure hypercholesterolemia E78.00 Moderate persistent asthma without complication J45.40 Asthma severity: moderate Asthma persistence: persistent Asthma complication type: uncomplicated Migraine without aura and without status migrainosus, not intractable G43.009 Migraine type: without aura Status migrainosus presence: without status migrainosus Intractability: not intractable Lumbar degenerative disc disease M51.36 Primary osteoarthritis of both knees M17.0 Osteoarthritis type: primary Gastroesophageal reflux disease without esophagitis K21.9 Esophagitis presence: without esophagitis Vitamin D deficiency E55.9 Vitamin B12 deficiency E53.8 Primary insomnia F51.01 Insomnia type: primary Anxiety F41.9 Episode of recurrent major depressive disorder, unspecified depression episode severity F33.9 Depression Type: major depressive disorder Major depression recurrence: recurrent Active/Remission status: currently active Major depression episode severity: unspecified Obesity (BMI 30-39.9) E66.9
[2023-12-10 13:20] VITALS: BP 112/66; PULSE 77; O2SAT 98; BMI 34.9
== END 2023-12-10 14:00 | disposition home or self-care (01) ==
PROVIDERS: PCP Internal Medicine; Visit Provider Internal Medicine
DX: E11.9 Type 2 diabetes mellitus without complications (principal); F33.9 Major depressive disorder, recurrent, unspecified; I10 Essential (primary) hypertension; E78.00 Pure hypercholesterolemia, unspecified; J45.40 Moderate persistent asthma, uncomplicated; G43.009 Migraine without aura, not intractable, without status migrainosus; M51.36 Other intervertebral disc degeneration, lumbar region; M17.0 Bilateral primary osteoarthritis of knee; K21.9 Gastro-esophageal reflux disease without esophagitis; E55.9 Vitamin D deficiency, unspecified; E53.8 Deficiency of other specified B group vitamins; F51.01 Primary insomnia
CPT/HCPCS: 99214; G2211

== ENCOUNTER 2024-01-03 09:26 | Outpatient (AMB) | payer OTHER, SELFPAY ==
[2024-01-03 09:39] VITALS: BP 120/76; BMI 35.3
--- NOTE | 2024-01-03 09:39 | A.OFFVIS_ITS ---
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/DO NOT RS Clinical Informatics Manager: Clinical Informatics Manager Present (Isabell) Allergies aspirin [ASPIRIN] Allergy (Intermediate, Verified 01/03/24 09:39) ITCH, hives diphenhydramine [From Benadryl] Allergy (Intermediate, Verified 01/03/24 09:39) hives latex [LATEX] Allergy (Intermediate, Verified 01/03/24 09:39) Itching oxybutynin Allergy (Unknown, Verified 01/03/24 09:39) unknown dog dander [DOG] Adverse Reaction (Intermediate, Verified 01/03/24 09:39) sinus problems environmental allergies Adverse Reaction (Intermediate, Verified 01/03/24 09:39) sinus problems gabapentin Adverse Reaction (Intermediate, Verified 01/03/24 09:39) difficulty sleeping Penicillins [PENICILLINS] Adverse Reaction (Intermediate, Verified 01/03/24 09:39) Faint Sulfa (Sulfonamide Antibiotics) Adverse Reaction (Intermediate, Verified 01/03/24 09:39) nausea, vomiting, myalgia, headache HPI Comments Details: Presenting for annual exam. No complaints. Last Pap/HPV was negative in 07/11 Last Mammogram was BI-RADS 1 in 11/11 Last Colonoscopy was in 01/03, the recommendation was to repeat in 10 years [facility] Medical History Uncontrolled type 2 diabetes mellitus with hyperglycemia COVID-19 vaccine series completed Hearing impairment Obesity (BMI 30-39.9) Depression Anxiety Insomnia Vitamin B12 deficiency Vitamin D deficiency Migraine GERD (gastroesophageal reflux disease) Osteoarthritis of knees, bilateral Lumbar degenerative disc disease Asthma Pure hypercholesterolemia Benign essential hypertension Diabetes mellitus Surgical History S/P excision of lipoma (04/30/23) Hx of dilation and curettage History of hysteroscopy History of pubovaginal sling H/O colonoscopy History of suburethral sling procedure (~05/07/12) Ingrown toenail of left foot History of section History of eye surgery History of tonsillectomy History of tubal ligation Family History Father Diabetes Mother Hypertension High cholesterol Family history of thyroid problem Paternal Grandfather Leukemia Social History Housing: Apartment Alcohol intake: never Patient Tobacco Use Status: Never used Tobacco e-Cigarette/Vaping Use: Never Used Second Hand Smoke Exposure: No service: No Current occupational status: disabled Cognitive needs: Yes (cane) Hearing needs: Yes (needs hearing aide) Vision needs: Yes (Glasses) Female Reproductive History Menstrual Age of Menarche: 13 Menopause type: natural Date of last pap smear: 07/15/20 (neg pap and hpv) Date of Mammogram: 11/14/23 (Birad 1) Review of Systems Const All systems reviewed & are unremarkable except as noted in HPI and below Card Reports as per HPI Resp Reports as per HPI GI Reports as per HPI and Reports no additional complaints Reports as per HPI Physical Exam Vital Signs: Last Vital Signs BP 120/76 01/03/24 09:39 BMI result Body Mass Index 35.3 Const General: cooperative, healthy appearing and comfortable Chest Chest palpation & inspection: normal inspection of the chest and normal palpation of entire chest wall Breast/axilla inspection: normal inspection of the breasts and normal inspection of the axillae Breast/axilla palpation: normal palpation of the breasts, normal palpation of the axillae and no axillary lymphadenopathy Resp Effort & Inspection: normal respiratory effort Auscultation: clear to auscultation bilaterally Percussion: percussion normal Cardio Palpation: normal PMI Rate: regular rate Rhythm: regular rhythm Heart sounds: no murmurs and no rubs Peripheral pulses: Peripheral pulses 2+ throughout GI Inspection: Yes normal to inspection Palpation (GI): Soft to palpation, nontender, no guarding, not rigid and No hepatosplenomegaly present Percussion: Yes normal to percussion Auscultation: normal bowel sounds Rectal Exam - Female: deferred General: Yes bladder normal to palpation External Female Exam: No lesion Speculum Exam - Vagina: normal appearance of the vagina, normal palpation, normal vaginal discharge and not erythematous Speculum Exam - Cervix: normal appearance of the cervix and normal palpation Bimanual exam- vagina & uterus: normal bimanual exam, normal palpation, uterine size normal, bladder normal to palpation, consistency normal and normal palpation Bimanual Exam- Adnexa, other: normal adnexae, no masses and no tenderness Assessment & Plan Assessment & Plan (1) Well woman exam: Code(s): Z01.419 - Encounter for gynecological examination (general) (routine) without abnormal findings Category: Medical Plan: Co testing not indicated this year. Counseled the patient about the recommended dietary allowance of 1200 mg of Calcium & 600 IU of vitamin D. Instructions given the patient to schedule next screening Mammogram in 11/12. The patient was instructed to perform monthly self-breast exams and schedule annual exam in a year. All questions answered and the patient verbalized understanding. Coding Level of Care Code Est Pt Prev Care 40-64y(87477) Diagnoses Well woman exam Z01.419
== END 2024-01-03 10:09 | disposition home or self-care (01) ==
PROVIDERS: PCP Internal Medicine; Visit Provider Obstetrics & Gynecology
DX: Z01.419 Encounter for gynecological examination (general) (routine) without abnormal findings (principal)
CPT/HCPCS: 99396

== ENCOUNTER → 2024-01-03 09:26 | Outpatient (BNVA) | payer OTHER, SELFPAY | PROVIDERS: PCP Internal Medicine; Visit Provider Obstetrics & Gynecology ==

== ENCOUNTER 2024-03-27 11:28 | Outpatient (AMB) | payer OTHER, SELFPAY ==
[2024-03-27 11:32] VITALS: BP 112/78; PULSE 81; O2SAT 97; BMI 35.1
--- NOTE | 2024-03-27 11:32 | MHC.PC.OV ---
Vital Signs 03/27/24 11:32 Height 5 ft 6 in Weight 217 lb 4 oz BMI 35.1 BP 112/78 Blood Pressure Location Lt brachial Position Sitting Pulse 81 Pulse Source Pulse Oximeter Pulse Oximetry (%) 97 Oxygen Delivery Method Room Air Intake Visit Reasons: DM, hyperlipidemia, HTN Furniture Sprayer Required: No Accompanied by: Self / Same As Patient Allergies aspirin [ASPIRIN] Allergy (Intermediate, Verified 03/27/24 11:54) ITCH, hives diphenhydramine [From Benadryl] Allergy (Intermediate, Verified 03/27/24 11:54) hives latex [LATEX] Allergy (Intermediate, Verified 03/27/24 11:54) Itching oxybutynin Allergy (Unknown, Verified 03/27/24 11:54) unknown dog dander [DOG] Adverse Reaction (Intermediate, Verified 03/27/24 11:54) sinus problems environmental allergies Adverse Reaction (Intermediate, Verified 03/27/24 11:54) sinus problems gabapentin Adverse Reaction (Intermediate, Verified 03/27/24 11:54) difficulty sleeping Penicillins [PENICILLINS] Adverse Reaction (Intermediate, Verified 03/27/24 11:54) Faint Sulfa (Sulfonamide Antibiotics) Adverse Reaction (Intermediate, Verified 03/27/24 11:54) nausea, vomiting, myalgia, headache Medication List - Last Reconciled 03/27/24 by Christopher Domínguez MD acetaminophen-codeine 300-30 mg 1 tab PO Q6H PRN 28 days albuterol sulfate 90 mcg/actuation 2 puffs PO Q4H PRN atorvastatin 20 mg PO DAILY blood sugar diagnostic (FreeStyle Lite Strips) 1 strip miscellaneous TID blood-glucose meter (FreeStyle Lite Meter kit) As directed cholecalciferol (vitamin D3) 25 mcg PO DAILY citalopram 40 mg PO DAILY 30 days cyanocobalamin (vitamin B-12) 1,000 mcg PO DAILY cyclobenzaprine 5 mg PO BID PRN docusate sodium 100 mg PO DAILY PRN empagliflozin (Jardiance) 25 mg PO DAILY flash glucose scanning reader (YillioStyle Faith 2 [place]) DIRECTED flash glucose sensor (FreeStyle Faith 2 Sensor kit) As directed change every 14 days [incontinent pads As directed two/daily ] insulin glargine (Lantus Solostar U-100 Insulin) 12 units (0.12 mL) subcut QPM lancets (FreeStyle Lancets) 28 gauge topical TID loratadine (Allergy Relief (loratadine)) 10 mg PO DAILY 30 days lorazepam 0.5 mg PO BEDTIME PRN 30 days metformin 1,000 mg PO BID 90 days nadolol 20 mg PO BEDTIME pantoprazole 40 mg PO DAILY pen needle, diabetic (Comfort EZ Pen [place]) As directed injects once a day sumatriptan succinate 100 mg PO BID PRN tirzepatide (Mounjaro) 7.5 mg (0.5 mL) subcut QWEEK tirzepatide (Mounjaro) mg subcut trazodone 100 mg PO BEDTIME PRN 90 days underpads (Goodnites Bed Mats) As directed Tobacco use date assessed: 03/27/24 Dental Screening Dental Screen Date: 03/27/24 Did you have a dental visit in the last 12 months?: No Did you have a dental problem in the last 6 months where you did not have access to dental care?: No Was dental information given to patient?: No HPI DM, hyperlipidemia, HTN HPI Details Patient comes in today for her follow up visit States that she has been experiencing increased pain over her right lower back and behind her right hip over the past couple of weeks She denies any recent injury or trauma to her lower back or hip and notes that the pain is usually worse when she is up and moving around; feels slightly better when she sits down and does not move much She denies any headaches or dizziness Denies any chest pains, no increased SOB No nausea/vomiting, no abdominal pain No change in bowel habits noted Needs her Lorazepam Rx refilled today States that she was not able to get her follow up labs done prior to her appointment today - admits that she completely forgot to get her labs done FOR[facility]LY [facility], [facility] Medical History (Updated 03/27/24 @ 13:47 by Christopher Domínguez MD) COVID-19 vaccine series completed Hearing impairment Obesity (BMI 30-39.9) Depression Anxiety Insomnia Vitamin B12 deficiency Vitamin D deficiency Migraine GERD (gastroesophageal reflux disease) Osteoarthritis of knees, bilateral Lumbar degenerative disc disease Asthma Pure hypercholesterolemia Benign essential hypertension Diabetes mellitus Surgical History S/P excision of lipoma (04/30/23) Hx of dilation and curettage History of hysteroscopy History of pubovaginal sling H/O colonoscopy History of suburethral sling procedure (~05/07/12) Ingrown toenail of left foot History of section History of eye surgery History of tonsillectomy History of tubal ligation Family History Father Diabetes Mother Hypertension High cholesterol Family history of thyroid problem Paternal Grandfather Leukemia Social History Housing: Apartment Alcohol intake: never Patient Tobacco Use Status: Never used Tobacco e-Cigarette/Vaping Use: Never Used Second Hand Smoke Exposure: No service: No Current occupational status: disabled Cognitive needs: Yes (cane) Hearing needs: Yes (needs hearing aide) Vision needs: Yes (Glasses) Female Reproductive History Menstrual Age of Menarche: 13 Questionnaire PHQ-9 Over the last 2 weeks, how often have you been bothered by any of the following problems? 1. Little interest or pleasure in doing things: several days 2. Feeling down, depressed, or hopeless: several days 3. Trouble falling or staying asleep, or sleeping too much: several days 4. Feeling tired or having little energy: nearly every day 5. Poor appetite or overeating: not at all 6. Feeling bad about yourself - or that you are a failure or have let yourself or your family down: several days 7. Trouble concentrating on things, such as reading the newspaper or watching television: several days 8. Moving or speaking so slowly that other people could have noticed. Or the opposite - being so fidgety or restless that you have been moving around a lot more than usual: several days 9. Thoughts that you would be better off or of hurting yourself in some way: not at all Total score: 9 Depression Screening Interpretation: Positive Depression Screening Follow-up: Existing condition and In treatment Depression Screening Done: Yes 59344 - PHQ-9 Billing: Yes Source: Developed by Drs. Nii Shah, Leslie Carmona, Gustavo Newton and colleagues, with an educational dani from [employer]. Thrive Questionnaire Date Thrive assessed: 03/27/24 I am a: Patient What is your living situation today?: I have a steady place to live Within the past 12 months, did the food you bought not last and you didn't have the money to get more?: Never true Within the past 12 months, did you worry whether your food would run out before you got money to buy more?: Never true Do you have trouble paying for medicines?: No Do you have trouble getting transportation to medical appointments?: No Do you have trouble paying your heating and electricity bill?: No Do you have trouble taking care of your child, family member or friend?: No Do you have trouble with day-to-day activities such as bathing, preparing meals, shopping, managing finances, etc.?: No Are you currently unemployed and looking for a job?: No Are you interested in more education?: No Please select the resources that you would like help with: None Currently or been in a relationship where the following occur: No concerns reported THRIVE Score: 0 AUDIT C Alcohol Use Questionnaire (AUDIT-C) 1. How often do you have a drink containing alcohol?: Never Total Score: 0 Score Reviewed/Action Taken: Yes SONYA-7 AMB Questionnaire SONYA-7 Date SONYA - 7 assessed: 03/27/24 Feeling nervous, anxious, or on edge: 0 = Not at all Not being able to stop or control worryin = Not at all Worrying too much about different things: 0 = Not at all Trouble relaxin = Not at all Being so restless that it is hard to sit still: 0 = Not at all Becoming easily annoyed or irritable: 0 = Not at all Feeling afraid as if something awful might happen: 0 = Not at all Total SONYA-7 score (0-4 normal; 5-9 mild; 10-14 moderate; 15-21 severe): 0 Source: Developed by Drs. Nii Shah, Leslie Carmona, Gustavo Newton and colleagues, with an educational dani from [employer]. Review of Systems Const Denies chills, Denies fatigue, Denies fever(s) and Denies headache(s) ENT Denies dysphagia, Denies dizziness, Denies otalgia, Denies headache(s), Denies neck pain, Denies odynophagia and Denies sore throat Card Denies chest pain, Denies palpitations and Denies dyspnea Resp Denies chest congestion, Denies cough and Denies dyspnea GI Denies abdominal pain, Denies constipation, Denies dysphagia, Denies heartburn, Denies diarrhea, Denies nausea, Denies odynophagia and Denies vomiting Denies nocturia, Denies dysuria, Denies urinary hesitancy and Denies urinary urgency Musc Reports back pain (on and off, over the lower back - increasing lately, especially on R side), Reports arthralgias (over both knees; behind right hip lately), Denies neck pain and Reports tingling (occasionally, in the right leg) Skin/Breast Denies rash Neuro Denies dizziness, Denies headache(s) and Reports tingling (occasionally, in the right leg) Psych Denies anxiety Endo Denies fatigue and Denies palpitations Physical exam (Primary Care) Vital Signs: Last Vital Signs Pulse 81 03/27/24 11:32 BP 112/78 03/27/24 11:32 Pulse Ox 97 03/27/24 11:32 Oxygen Delivery Method Room Air 03/27/24 11:32 BMI result Body Mass Index 35.1 Tobacco/Smoking Status: Tobacco use Status Tobacco use date assessed 03/27/24 03/27/24 11:39 Patient Tobacco Use Status Never used Tobacco 03/27/24 11:39 e-Cigarette/Vaping Use Never Used 03/27/24 11:39 PHQ-9: PHQ-9 Score PHQ-9: Total score 9 03/27/24 11:55 Depression Screening Interpretation: Positive Depression Screening Follow-up: Existing condition and In treatment Thrive Assessment: Date of Thrive Assessment Date Thrive assessed 03/27/24 03/27/24 11:39 Currently or been in a relationship where the following occur: No concerns reported Const General: no acute distress and alert HENMT Ears: TM's normal bilaterally and EAC's normal Throat: Yes posterior oropharynx normal and Yes tonsils normal (no TP congestion noted) Neck Neck: Yes no lymphadenopathy and Yes supple Thyroid: Thyroid normal Resp Auscultation: clear to auscultation bilaterally, no rales and no wheezes Cardio Rate: regular rate Rhythm: regular rhythm Heart sounds: no murmurs GI Palpation (GI): Soft to palpation and nontender Auscultation: normal bowel sounds General: Yes no CVA tenderness Back/Spine/Pelvis Back: no CVA tenderness Thoracic/Lumbar Spine: paraspinal muscle tenderness on the right in the lower lumbar and lumbar spinal tenderness Sacroiliac joints: on the right tender to palpation Skin Rashes: no rashes Extrem General: Yes no clubbing, cyanosis or edema Right lower extremity: knee Details: tenderness; no swelling Left lower extremity: knee Details: tenderness; no swelling Results AMB Hemoglobin A1c AMB Hemoglobin A1c 7.2 % Last Edit by DYLAN Rouse on 03/27/24 11:52 Results Reviewed Results Reviewed: Laboratory Last Values Hgb A1c (Clinic) 7.2 % (4.0-6.0) H 03/27/24 11:31 Coding Level of Care Code Est Pt Level 4 (07400) Diagnoses Type 2 diabetes mellitus without complication, without long-term current use of insulin E11.9 Diabetes mellitus type: type 2 Diabetes mellitus long term care social worker insulin use: without senior living use Diabetes mellitus complication status: without complication Benign essential hypertension I10 Pure hypercholesterolemia E78.00 Moderate persistent asthma without complication J45.40 Asthma severity: moderate Asthma persistence: persistent Asthma complication type: uncomplicated Migraine without aura and without status migrainosus, not intractable G43.009 Migraine type: without aura Status migrainosus presence: without status migrainosus Intractability: not intractable Degeneration of intervertebral disc of lumbar region with discogenic back pain and lower extremity pain M51.362 Disc-related pain type: discogenic back pain and lower extremity pain Posterior pain of right hip M25.551 Primary osteoarthritis of both knees M17.0 Osteoarthritis type: primary Gastroesophageal reflux disease without esophagitis K21.9 Esophagitis presence: without esophagitis Vitamin D deficiency E55.9 Vitamin B12 deficiency E53.8 Primary insomnia F51.01 Insomnia type: primary Anxiety F41.9 Episode of recurrent major depressive disorder, unspecified depression episode severity F33.9 Depression Type: major depressive disorder Major depression recurrence: recurrent Active/Remission status: currently active Major depression episode severity: unspecified Obesity (BMI 30-39.9) E66.9 Additional Codes PHQ-9 - 73486 - PHQ-9 Billing: Yes ([id number]) Assessment & Plan Assessment & Plan (1) Diabetes mellitus: Comment: taking metformin & januvia; Glimepiride added 7/2/21 Code(s): E11.9 - Type 2 diabetes mellitus without complications Category: Medical Qualifiers: Diabetes mellitus type: type 2 Diabetes mellitus long term care social worker insulin use: without long term care social worker use Diabetes mellitus complication status: without complication Qualified Code(s): E11.9 - Type 2 diabetes mellitus without complications Plan: Her in-office HgbA1c done today is at 7.2% (her HgbA1c was previously at 7.6% a few months ago) - goal is at least <7.5%, in light of patient's symptoms of dizziness and weakness when her fasting blood sugar dips under 140 mg/dL Reinforced diabetic diet Her C-peptide level was normal and SONYA Ab were negative when checked previously so she is definitely a type 2 diabetic and does not really require insulin yet at this time Continue Metformin 1000 mg BID, Trulicity 3.0 mg SQ once a week and Jardiance 25 mg QD; she was taken off Januvia 100 mg QD and Glimepiride 2 mg Q AM over the past year (2) Benign essential hypertension: Code(s): I10 - Essential (primary) hypertension Category: Medical Plan: Reinforced low-sodium diet -? goal is systolic BP of at least 120 to 130 mm or less Patient is reminded to continue monitoring her blood pressure regularly (3) Pure hypercholesterolemia: Code(s): E78.00 - Pure hypercholesterolemia, unspecified Category: Medical Plan: She was not able to get her follow up labs done (forgot) prior to her appointment today Have advised her that her previous cholesterol numbers were good so she can skip doing them this time Reinforced low cholesterol diet Continue Atorvastatin 10 mg QD Will recheck her labs and fasting lipids in 3 months for follow-up - will just have patient use her current lab orders (updated) for her next lab draw (4) Asthma: Comment: uses prn albuterol inhaler Code(s): J45.909 - Unspecified asthma, uncomplicated Category: Medical Qualifiers: Asthma severity: moderate Asthma persistence: persistent Asthma complication type: uncomplicated Qualified Code(s): J45.40 - Moderate persistent asthma, uncomplicated Plan: Stable Continue Advair HFA 115-21 mcg 2 puffs twice a day and Albuterol inhaler 2 puffs 4 times a day as needed (5) Migraine: Code(s): G43.909 - Migraine, unspecified, not intractable, without status migrainosus Category: Medical Qualifiers: Migraine type: without aura Status migrainosus presence: without status migrainosus Intractability: not intractable Qualified Code(s): G43.009 - Migraine without aura, not intractable, without status migrainosus Plan: Patient states that her headaches have been stable lately Continue Sumatriptan 100 mg PRN and Nadolol 20 mg daily at bedtime for her headache prophylaxis (6) Lumbar degenerative disc disease: Code(s): M51.36 - Other intervertebral disc degeneration, lumbar region Category: Medical Qualifiers: Disc-related pain type: discogenic back pain and lower extremity pain Qualified Code(s): M51.362 - Other intervertebral disc degeneration, lumbar region with discogenic back pain and lower extremity pain Plan: Reinforced activity and weight lifting restrictions Her lumbar spine x-rays done back in 2017 showed (+) lumbar spine facet arthritis SI joint x-rays and right hip x-rays at the time were normal BUT due to her recently increasing right lower back/posterior R hip pain, will send her for repeat lumbar spine and right hip x-rays as well as SI joint x-rays for further evaluation Continue Tylenol with codeine (#3) 1 tablet every 6 hours as needed for pain (7) Posterior pain of right hip: Code(s): M25.551 - Pain in right hip Category: Medical Plan: Her right hip x-rays back in 2017 were normal BUT due to her recently increasing right lower back/posterior R hip pain, will send her for repeat lumbar spine and right hip x-rays as well as SI joint x-rays for further evaluation (8) Osteoarthritis of knees, bilateral: Code(s): M17.0 - Bilateral primary osteoarthritis of knee Category: Medical Qualifiers: Osteoarthritis type: primary Qualified Code(s): M17.0 - Bilateral primary osteoarthritis of knee Plan: Continue Acetaminophen PRN for pain Follow-up with Orthopedics as scheduled - gets cortisone injections in her knees as needed for pain relief (9) GERD (gastroesophageal reflux disease): Code(s): K21.9 - Gastro-esophageal reflux disease without esophagitis Category: Medical Qualifiers: Esophagitis presence: without esophagitis Qualified Code(s): K21.9 - Gastro-esophageal reflux disease without esophagitis Plan: Dietary restrictions reinforced Continue Pantoprazole 40 mg daily Patient's recent GI symptoms suggest early gastroparesis even though she had a normal gastric emptying study done back in 2019 Follow up with GI as scheduled (10) Vitamin D deficiency: Code(s): E55.9 - Vitamin D deficiency, unspecified Category: Medical Plan: Continue Vitamin D3 1000 units QD (11) Vitamin B12 deficiency: Code(s): E53.8 - Deficiency of other specified B group vitamins Category: Medical Plan: Continue Vitamin B12 tablets 1000 mcg QD (12) Insomnia: Code(s): G47.00 - Insomnia, unspecified Category: Medical Qualifiers: Insomnia type: primary Qualified Code(s): F51.01 - Primary insomnia Plan: Sleep hygiene reinforced Continue Trazodone 100 mg daily at bedtime as needed (13) Anxiety: Code(s): F41.9 - Anxiety disorder, unspecified Category: Medical Plan: Continue Lorazepam 0.5 mg once a day at bedtime as needed (Rx refilled) (14) Depression: Code(s): F32.9 - Major depressive disorder, single episode, unspecified Category: Medical Qualifiers: Depression Type: major depressive disorder Major depression recurrence: recurrent Active/Remission status: currently active Major depression episode severity: unspecified Qualified Code(s): F33.9 - Major depressive disorder, recurrent, unspecified Plan: Continue Citalopram 40 mg QD Follow-up with Psychiatry as scheduled (15) Obesity (BMI 30-39.9): Code(s): E66.9 - Obesity, unspecified Category: Medical Plan: Reinforced diet; exercise and weight loss are not practical at this time due to patient's physical issues and worsening right low back pain as well as her multiple comorbidities Plan Follow up in 3 months Orders: Orders XR sacroiliac joint min 3V Today M54.50 - Low back pain, unspecified AMB Hemoglobin A1c Today Z13.9 - Encounter for screening, unspecified XR hip RT min 2V Today M25.551 - Pain in right hip, M54.50 - Low back pain, unspecified XR lumbar spine 2-3V Today M54.50 - Low back pain, unspecified Medications: Refilled lorazepam 0.5 mg PO BEDTIME 30 days PRN 30 tabs 2RF anxiety
== END 2024-03-27 12:02 | disposition home or self-care (01) ==
LOC: HO.HMCH 11:29
PROVIDERS: PCP Internal Medicine; Visit Provider Internal Medicine
DX: E11.9 Type 2 diabetes mellitus without complications (principal); I10 Essential (primary) hypertension; F33.9 Major depressive disorder, recurrent, unspecified; E78.00 Pure hypercholesterolemia, unspecified; J45.40 Moderate persistent asthma, uncomplicated; G43.009 Migraine without aura, not intractable, without status migrainosus; M51.362 Other intervertebral disc degeneration, lumbar region with discogenic back pain and lower extremity pain; M25.551 Pain in right hip; M17.0 Bilateral primary osteoarthritis of knee; K21.9 Gastro-esophageal reflux disease without esophagitis; E55.9 Vitamin D deficiency, unspecified

== ENCOUNTER 2024-03-27 11:28 | Outpatient (REF) | payer OTHER, SELFPAY | END 2024-03-27 11:29 | disposition home or self-care (01) | LOC: HO.XRAY 11:28 | PROVIDERS: PCP Internal Medicine; Visit Provider Internal Medicine | DX: M54.50 Low back pain, unspecified (principal); M25.551 Pain in right hip; E11.9 Type 2 diabetes mellitus without complications; E78.00 Pure hypercholesterolemia, unspecified; I10 Essential (primary) hypertension; J45.40 Moderate persistent asthma, uncomplicated; G43.009 Migraine without aura, not intractable, without status migrainosus; M51.362 Other intervertebral disc degeneration, lumbar region with discogenic back pain and lower extremity pain; M17.0 Bilateral primary osteoarthritis of knee; K21.9 Gastro-esophageal reflux disease without esophagitis; E53.8 Deficiency of other specified B group vitamins; F51.01 Primary insomnia; F41.9 Anxiety disorder, unspecified; F33.9 Major depressive disorder, recurrent, unspecified; E66.9 Obesity, unspecified; Z13.9 Encounter for screening, unspecified; Z79.4 Long term (current) use of insulin; Z79.899 Other long term (current) drug therapy | CPT/HCPCS: 72100; 72202; 73502; 83036; 96127; 99212 ==

== ENCOUNTER 2024-10-07 08:51 | Outpatient (REF) | payer OTHER, SELFPAY ==
[2024-10-07 09:03] LABS: MANUAL DIFF FLAG NO
[2024-10-07 09:21] LABS: Basophils Absolute Auto 0.1 X10*3/uL (0.0-0.2); Basophils Percent Auto 0.6 % (0-2); Eosinophils Absolute Auto 0.1 X10*3/uL (0.0-0.4); Eosinophils Percent Auto 1.6 % (0-4); Hemoglobin 13.8 g/dl (12.0-16.0); Imm Gran Abs Auto 0.04 X10*3/uL (0.00-0.03); Imm Gran Pct Auto 0.5 % (0.0-0.4); Lymphocytes Absolute Auto 2.8 X10*3/uL (1.2-4.9); Lymphocytes Percent Auto 34.9 % (20-40); Mean Corpuscular HGB Conc 32.1 g/dl (31.0-35.0); Mean Corpuscular Hemoglobin 27.3 pg (27.0-33.0); Mean Corpuscular Volume 85.1 fL (80.0-98.0); Mean Platelet Volume 9.1 fL (9.4-12.3); Monocytes Absolute Auto 0.6 X10*3/uL (0.1-1.2); Neutrophils Absolute Auto 4.4 x10*3/uL (2.0-8.3); Neutrophils Percent Auto 55.4 % (45-73); Platelet Count 315 X10*3/uL (160-400); Red Blood Count 5.05 X10*6/uL (4.20-5.50); Red Cell Distribution Width 13.8 % (11.0-16.0)
[2024-10-07 09:39] LABS: Estimated Average Glucose 157 mg/dL; Hemoglobin A1c % 7.1 % (<6.0); Total Hemoglobin (HGBA1C) 3602.3646 umol/L
[2024-10-07 10:14] LABS: Appearance Urine Clear; Color Urine Yellow; Glucose Urine UA >=1000 mg/dL (Negative); Leukocyte Esterase Urine Negative (Negative); Nitrite Urine Negative (Negative); PH 5.5 (5.0-9.0); Specific Gravity - Urine >= 1.030 (1.005-1.025); UMIC TRIGGER UACC YES; Urine Blood Negative (Negative); Urine Ketones Trace mg/dL (Negative); Urine Protein Negative (Neg-Trace)
[2024-10-07 10:14] LABS: Alanine Aminotransferase 17 U/L (0-31); Albumin Level 4.3 g/dL (3.5-5.0); Alkaline Phosphatase 91 U/L (39-117); Anion Gap 13 (12-20); Aspartate Amino Transferase 15 U/L (5-31); Bilirubin Total 0.3 mg/dL (0.0-1.0); Blood Urea Nitrogen 13 mg/dL (9-16); Calcium 9.3 mg/dL (8.4-10.2); Carbon Dioxide 28 mmol/L (22-29); Chloride 104 mmol/L (96-108); Cholesterol 131 mg/dL (<200); Estimated Glomerular Filt Rate > 60; Glucose Fasting 140 mg/dL (60-99); HDL Cholesterol 39 mg/dL (>40); LDL Cholesterol Calculated 62 mg/dL (<100); Sodium 141 mmol/L (135-145); TSH reflex Free T4 1.32 uIU/mL (0.32-4.0); Total Protein 7.7 g/dL (6.5-8.0); Triglycerides 151 mg/dL (<150); Vitamin D 25-OH Total 46.2 ng/mL (>30)
[2024-10-07 10:35] LABS: Creatinine Urine 95.56 mg/dL; Microalbum/Creatinine Ratio Ur 10.4 ug/mg cr (<30)
[2024-10-07 10:40] LABS: Bacteria Urine None Seen (None Seen); Hyaline Casts Urine 0-2 /LPF (0-2); RBC Urine 0-2 /HPF (0-2); UACC Culture Trigger YES
[2024-10-07 10:41] LABS: Folate 10.2 ng/mL (> or = 4.0); Vitamin B12 162 pg/mL (200-900)
== END 2024-10-07 08:52 | disposition home or self-care (01) ==
LOC: HO.LAB 08:51
PROVIDERS: PCP Internal Medicine; Visit Provider Internal Medicine
DX: E78.00 Pure hypercholesterolemia, unspecified (principal); E55.9 Vitamin D deficiency, unspecified; E11.9 Type 2 diabetes mellitus without complications; D64.9 Anemia, unspecified; E53.8 Deficiency of other specified B group vitamins; R30.0 Dysuria
CPT/HCPCS: 36415; 80053; 80061; 81001; 81003; 82043; 82306; 82570; 82607; 82746; 83036; 84443; 85025; 87086

== ENCOUNTER 2024-10-08 12:36 | Outpatient (AMB) | payer OTHER, SELFPAY ==
--- NOTE | 2024-10-08 12:52 | MHC.PC.OV ---
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 Required: No Accompanied by: Self / Same As Patient Allergies aspirin [ASPIRIN] Allergy (Intermediate, Verified 10/08/24 13:11) ITCH, hives diphenhydramine [From Benadryl] Allergy (Intermediate, Verified 10/08/24 13:11) hives latex [LATEX] Allergy (Intermediate, Verified 10/08/24 13:11) Itching oxybutynin Allergy (Unknown, Verified 10/08/24 13:11) unknown dog dander [DOG] Adverse Reaction (Intermediate, Verified 10/08/24 13:11) sinus problems environmental allergies Adverse Reaction (Intermediate, Verified 10/08/24 13:11) sinus problems gabapentin Adverse Reaction (Intermediate, Verified 10/08/24 13:11) difficulty sleeping Penicillins [PENICILLINS] Adverse Reaction (Intermediate, Verified 10/08/24 13:11) Faint Sulfa (Sulfonamide Antibiotics) Adverse Reaction (Intermediate, Verified 10/08/24 13:11) nausea, vomiting, myalgia, headache Medication List - Last Reconciled 10/08/24 by Christopher Domínguez MD acetaminophen-codeine 300-30 mg 1 tab PO Q6H PRN 28 days albuterol sulfate 90 mcg/actuation 2 puffs PO Q4H PRN atorvastatin 20 mg PO DAILY blood sugar diagnostic (FreeStyle Lite Strips) 1 strip miscellaneous TID blood-glucose meter (FreeStyle Lite Meter kit) As directed cholecalciferol (vitamin D3) 25 mcg PO DAILY citalopram 40 mg PO DAILY 30 days cyanocobalamin (vitamin B-12) 1,000 mcg PO DAILY cyclobenzaprine 5 mg PO BID PRN docusate sodium 100 mg PO DAILY PRN empagliflozin (Jardiance) 25 mg PO DAILY flash glucose scanning reader (BringrsStyle Faith 2 [place]) DIRECTED flash glucose sensor (FreeStyle Faith 2 Sensor kit) As directed change every 14 days [incontinent pads As directed two/daily ] insulin glargine (Lantus Solostar U-100 Insulin) 12 units (0.12 mL) subcut QPM lancets (FreeStyle Lancets) 28 gauge topical TID loratadine (Allergy Relief (loratadine)) 10 mg PO DAILY 30 days lorazepam 0.5 mg PO BEDTIME PRN 30 days metformin 1,000 mg PO BID 90 days nadolol 20 mg PO BEDTIME pantoprazole 40 mg PO DAILY pen needle, diabetic (Comfort EZ Pen [place]) As directed injects once a day sumatriptan succinate 100 mg PO BID PRN tirzepatide (Mounjaro) mg subcut tirzepatide (Mounjaro) 7.5 mg (0.5 mL) subcut QWEEK trazodone 100 mg PO BEDTIME PRN 90 days underpads (Goodnites Bed Mats) As directed Tobacco use date assessed: 10/08/24 Dental Screening Dental Screen Date: 10/08/24 Did you have a dental visit in the last 12 months?: No Did you have a dental problem in the last 6 months where you did not have access to dental care?: No Was dental information given to patient?: No HPI 3 month f/u HPI Details Patient comes in today for her follow up visit States that she feels okay She denies any headaches or dizziness Denies any chest pains, no increased SOB No nausea/vomiting, no abdominal pain No change in bowel habits noted States that her chronic right lower back pain and joint pains remain adequately controlled on her current Rx She had her follow up labs done yesterday - to discuss her results [facility] Medical History COVID-19 vaccine series completed Hearing impairment Obesity (BMI 30-39.9) Depression Anxiety Insomnia Vitamin B12 deficiency Vitamin D deficiency Migraine GERD (gastroesophageal reflux disease) Osteoarthritis of knees, bilateral Lumbar degenerative disc disease Asthma Pure hypercholesterolemia Benign essential hypertension Diabetes mellitus Surgical History S/P excision of lipoma (04/30/23) Hx of dilation and curettage History of hysteroscopy History of pubovaginal sling H/O colonoscopy History of suburethral sling procedure (~05/07/12) Ingrown toenail of left foot History of section History of eye surgery History of tonsillectomy History of tubal ligation Family History Father Diabetes Mother Hypertension High cholesterol Family history of thyroid problem Paternal Grandfather Leukemia Social History Housing: Apartment Alcohol intake: never Patient Tobacco Use Status: Never used Tobacco e-Cigarette/Vaping Use: Never Used Second Hand Smoke Exposure: No service: No Current occupational status: disabled Cognitive needs: Yes (cane) Hearing needs: Yes (needs hearing aide) Vision needs: Yes (Glasses) Female Reproductive History Menstrual Age of Menarche: 13 Questionnaire PHQ-9 Over the last 2 weeks, how often have you been bothered by any of the following problems? 1. Little interest or pleasure in doing things: several days 2. Feeling down, depressed, or hopeless: several days 3. Trouble falling or staying asleep, or sleeping too much: not at all 4. Feeling tired or having little energy: not at all 5. Poor appetite or overeating: not at all 6. Feeling bad about yourself - or that you are a failure or have let yourself or your family down: not at all 7. Trouble concentrating on things, such as reading the newspaper or watching television: not at all 8. Moving or speaking so slowly that other people could have noticed. Or the opposite - being so fidgety or restless that you have been moving around a lot more than usual: several days 9. Thoughts that you would be better off or of hurting yourself in some way: not at all Total score: 3 Depression Screening Interpretation: Positive Depression Screening Follow-up: Existing condition and In treatment Depression Screening Done: Yes 35571 - PHQ-9 Billing: Yes Source: Developed by Drs. Nii Shah, Leslie Carmona, Gustavo Newton and colleagues, with an educational dani from [employer]. Thrive Questionnaire Date Thrive assessed: 10/08/24 I am a: Patient What is your living situation today?: I have a steady place to live Within the past 12 months, did the food you bought not last and you didn't have the money to get more?: Never true Within the past 12 months, did you worry whether your food would run out before you got money to buy more?: Never true Do you have trouble paying for medicines?: No Do you have trouble getting transportation to medical appointments?: No Do you have trouble paying your heating and electricity bill?: No Do you have trouble taking care of your child, family member or friend?: No Do you have trouble with day-to-day activities such as bathing, preparing meals, shopping, managing finances, etc.?: No Are you currently unemployed and looking for a job?: I choose not to answer this question Are you interested in more education?: No Please select the resources that you would like help with: Food Currently or been in a relationship where the following occur: I choose not to answer THRIVE Score: 0 AUDIT C Alcohol Use Questionnaire (AUDIT-C) 1. How often do you have a drink containing alcohol?: Never 3. How often do you have six or more drinks on one occasion?: Never Total Score: 0 Score Reviewed/Action Taken: Yes SONYA-7 AMB Questionnaire SONYA-7 Date SONYA - 7 assessed: 10/08/24 Feeling nervous, anxious, or on edge: 1 = Several days Not being able to stop or control worryin = Not at all Worrying too much about different things: 0 = Not at all Trouble relaxin = Several days Being so restless that it is hard to sit still: 0 = Not at all Becoming easily annoyed or irritable: 0 = Not at all Feeling afraid as if something awful might happen: 0 = Not at all Total SONYA-7 score (0-4 normal; 5-9 mild; 10-14 moderate; 15-21 severe): 2 Source: Developed by Drs. Nii Shah, Leslie Carmona, Gustavo Newton and colleagues, with an educational dani from [employer]. Review of Systems Const Denies chills, Denies fatigue, Denies fever(s) and Denies headache(s) ENT Denies dysphagia, Denies dizziness, Denies otalgia, Denies headache(s), Denies neck pain, Denies odynophagia and Denies sore throat Card Denies chest pain, Denies palpitations and Denies dyspnea Resp Denies chest congestion, Denies cough and Denies dyspnea GI Denies abdominal pain, Denies constipation, Denies dysphagia, Denies heartburn, Denies diarrhea, Denies nausea, Denies odynophagia and Denies vomiting Denies difficulty voiding, Denies nocturia, Denies dysuria, Denies urinary hesitancy and Denies urinary urgency Musc Reports back pain (on and off, over the lower back - chronic), Reports arthralgias (over both knees), Denies neck pain and Reports tingling (occasionally, in the right leg) Skin/Breast Denies rash Neuro Denies dizziness, Denies headache(s) and Reports tingling (occasionally, in the right leg) Psych Denies anxiety Endo Denies fatigue and Denies palpitations Physical exam (Primary Care) Vital Signs: Last Vital Signs Pulse 82 10/08/24 12:53 BP 116/84 10/08/24 12:53 Pulse Ox 96 10/08/24 12:53 Oxygen Delivery Method Room Air 10/08/24 12:53 BMI result Body Mass Index 35.0 Tobacco/Smoking Status: Tobacco use Status Tobacco use date assessed 10/08/24 10/08/24 12:55 Patient Tobacco Use Status Never used Tobacco 10/08/24 12:55 e-Cigarette/Vaping Use Never Used 10/08/24 12:55 PHQ-9: PHQ-9 Score PHQ-9: Total score 3 10/08/24 12:55 Depression Screening Interpretation: Positive Depression Screening Follow-up: Existing condition and In treatment Thrive Assessment: Date of Thrive Assessment Date Thrive assessed 10/08/24 10/08/24 13:02 Currently or been in a relationship where the following occur: I choose not to answer Const General: no acute distress and alert HENMT Ears: TM's normal bilaterally and EAC's normal Throat: Yes posterior oropharynx normal and Yes tonsils normal (no TP congestion noted) Neck Neck: Yes no lymphadenopathy and Yes supple Thyroid: Thyroid normal Resp Auscultation: clear to auscultation bilaterally, no rales and no wheezes Cardio Rate: regular rate Rhythm: regular rhythm Heart sounds: no murmurs GI Palpation (GI): Soft to palpation and nontender Auscultation: normal bowel sounds General: Yes no CVA tenderness Back/Spine/Pelvis Back: no CVA tenderness Thoracic/Lumbar Spine: paraspinal muscle tenderness on the right in the lower lumbar and lumbar spinal tenderness Sacroiliac joints: on the right tender to palpation Skin Rashes: no rashes Extrem General: Yes no clubbing, cyanosis or edema Right lower extremity: knee Details: tenderness; no swelling Left lower extremity: knee Details: tenderness; no swelling Results Reviewed Results Reviewed: Laboratory Tests 10/07/24 10/07/24 08:57 09:02 WBC 8.0 Hgb 13.8 Hct 43.0 Plt Count 315 Sodium 141 Potassium 4.0 Creatinine 0.72 Estimated GFR > 60 Fasting Glucose 140 H Hemoglobin A1c % 7.1 H Calcium 9.3 AST 15 ALT 17 Triglycerides 151 H Cholesterol 131 LDL Cholesterol, Calc 62 HDL Cholesterol 39 L 25-OH Vitamin D Total 46.2 TSH 1.32 Ur Specific [place] >= 1.030 H Urine Protein Negative Urine Glucose (UA) >=1000 H Urine Blood Negative Urine Nitrite Negative Ur Leukocyte Esterase Negative Coding Level of Care Code Est Pt Level 4 (98620) Diagnoses Type 2 diabetes mellitus without complication, without long-term current use of insulin E11.9 Diabetes mellitus type: type 2 Diabetes mellitus adjunct faculty for medical terminology insulin use: without adjunct faculty for medical terminology use Diabetes mellitus complication status: without complication Benign essential hypertension I10 Pure hypercholesterolemia E78.00 Moderate persistent asthma without complication J45.40 Asthma severity: moderate Asthma persistence: persistent Asthma complication type: uncomplicated Migraine without aura and without status migrainosus, not intractable G43.009 Migraine type: without aura Status migrainosus presence: without status migrainosus Intractability: not intractable Degeneration of intervertebral disc of lumbar region with discogenic back pain and lower extremity pain M51.362 Disc-related pain type: discogenic back pain and lower extremity pain Primary osteoarthritis of both knees M17.0 Osteoarthritis type: primary Gastroesophageal reflux disease without esophagitis K21.9 Esophagitis presence: without esophagitis Vitamin D deficiency E55.9 Vitamin B12 deficiency E53.8 Primary insomnia F51.01 Insomnia type: primary Anxiety F41.9 Episode of recurrent major depressive disorder, unspecified depression episode severity F33.9 Depression Type: major depressive disorder Major depression recurrence: recurrent Active/Remission status: currently active Major depression episode severity: unspecified Obesity (BMI 30-39.9) E66.9 Additional Codes PHQ-9 - 71729 - PHQ-9 Billing: Yes ([id number]) Assessment & Plan Assessment & Plan (1) Diabetes mellitus: Comment: taking metformin & januvia; Glimepiride added 11/19/20 Code(s): E11.9 - Type 2 diabetes mellitus without complications Category: Medical Qualifiers: Diabetes mellitus type: type 2 Diabetes mellitus adjunct faculty for medical terminology insulin use: without adjunct faculty for medical terminology use Diabetes mellitus complication status: without complication Qualified Code(s): E11.9 - Type 2 diabetes mellitus without complications Plan: Her HgbA1c was at 7.1% on her labs done yesterday (in-office HgbA1c was previously at 7.2% a few months ago) - goal is at least <7.5%, in light of patient's symptoms of dizziness and weakness when her fasting blood sugar dips under 140 mg/dL Reinforced diabetic diet Her C-peptide level was normal and SONYA Ab were negative when checked previously so she is definitely a type 2 diabetic and does not require insulin yet at this time Continue Metformin 1000 mg BID, Trulicity 3.0 mg SQ once a week and Jardiance 25 mg QD; she was taken off Januvia 100 mg QD and Glimepiride 2 mg Q AM over the past year (2) Benign essential hypertension: Code(s): I10 - Essential (primary) hypertension Category: Medical Plan: Reinforced low-sodium diet -? goal is systolic BP of at least 120 to 130 mm or less Patient is reminded to continue monitoring her blood pressure regularly (3) Pure hypercholesterolemia: Code(s): E78.00 - Pure hypercholesterolemia, unspecified Category: Medical Plan: Results of her labs done yesterday reviewed and discussed with patient Reinforced low cholesterol diet Continue Atorvastatin 10 mg QD Will recheck her labs and fasting lipids in 3 months for follow-up (4) Asthma: Comment: uses prn albuterol inhaler Code(s): J45.909 - Unspecified asthma, uncomplicated Category: Medical Qualifiers: Asthma severity: moderate Asthma persistence: persistent Asthma complication type: uncomplicated Qualified Code(s): J45.40 - Moderate persistent asthma, uncomplicated Plan: Controlled Continue Advair HFA 115-21 mcg 2 puffs twice a day and Albuterol inhaler 2 puffs 4 times a day as needed (5) Migraine: Code(s): G43.909 - Migraine, unspecified, not intractable, without status migrainosus Category: Medical Qualifiers: Migraine type: without aura Status migrainosus presence: without status migrainosus Intractability: not intractable Qualified Code(s): G43.009 - Migraine without aura, not intractable, without status migrainosus Plan: Patient states that her headaches have been stable lately Continue Sumatriptan 100 mg PRN and Nadolol 20 mg daily at bedtime for her headache prophylaxis (6) Lumbar degenerative disc disease: Code(s): M51.36 - Other intervertebral disc degeneration, lumbar region Category: Medical Qualifiers: Disc-related pain type: discogenic back pain and lower extremity pain Qualified Code(s): M51.362 - Other intervertebral disc degeneration, lumbar region with discogenic back pain and lower extremity pain Plan: Reinforced activity and weight lifting restrictions Her lumbar spine x-rays done back in 2017 showed (+) lumbar spine facet arthritis SI joint x-rays and right hip x-rays at the time were normal BUT due to her recently increasing right lower back/posterior R hip pain, she was sent her repeat lumbar spine and right hip x-rays as well as SI joint x-rays for further evaluation Her hip x-rays came back normal, lumbar spine x-rays revealed (+) mild lumbar spondylosis but her SI joint x-rays revealed (+) significant SI joint arthritis, increased from previous Will refer her to pain management for her increased low back pain due to SI joint arthritis - patient may benefit from SI joint injections Continue Tylenol with codeine (#3) 1 tablet every 6 hours as needed for pain (7) Osteoarthritis of knees, bilateral: Code(s): M17.0 - Bilateral primary osteoarthritis of knee Category: Medical Qualifiers: Osteoarthritis type: primary Qualified Code(s): M17.0 - Bilateral primary osteoarthritis of knee Plan: Continue Acetaminophen PRN for pain Follow-up with Orthopedics as scheduled - gets cortisone injections in her knees as needed for pain relief (8) GERD (gastroesophageal reflux disease): Code(s): K21.9 - Gastro-esophageal reflux disease without esophagitis Category: Medical Qualifiers: Esophagitis presence: without esophagitis Qualified Code(s): K21.9 - Gastro-esophageal reflux disease without esophagitis Plan: Dietary restrictions reinforced Continue Pantoprazole 40 mg daily Patient's recent GI symptoms suggest early gastroparesis even though she had a normal gastric emptying study done back in 2019 Follow up with GI as scheduled (9) Vitamin D deficiency: Code(s): E55.9 - Vitamin D deficiency, unspecified Category: Medical Plan: Continue Vitamin D3 1000 units QD (10) Vitamin B12 deficiency: Code(s): E53.8 - Deficiency of other specified B group vitamins Category: Medical Plan: Continue Vitamin B12 tablets 1000 mcg QD (11) Insomnia: Code(s): G47.00 - Insomnia, unspecified Category: Medical Qualifiers: Insomnia type: primary Qualified Code(s): F51.01 - Primary insomnia Plan: Sleep hygiene reinforced Continue Trazodone 100 mg daily at bedtime as needed (12) Anxiety: Code(s): F41.9 - Anxiety disorder, unspecified Category: Medical Plan: Continue Lorazepam 0.5 mg once a day at bedtime as needed (Rx refilled) (13) Depression: Code(s): F32.9 - Major depressive disorder, single episode, unspecified Category: Medical Qualifiers: Depression Type: major depressive disorder Major depression recurrence: recurrent Active/Remission status: currently active Major depression episode severity: unspecified Qualified Code(s): F33.9 - Major depressive disorder, recurrent, unspecified Plan: Continue Citalopram 40 mg QD Follow-up with Psychiatry as scheduled (14) Obesity (BMI 30-39.9): Code(s): E66.9 - Obesity, unspecified Category: Medical Plan: Reinforced diet; exercise and weight loss are not practical at this time due to patient's physical issues and worsening right low back pain as well as her multiple comorbidities Plan Follow up in 3 months Orders: Orders Complete Blood Count Auto Diff 3 Months D64.9 - Anemia, unspecified Lipid Panel 3 Months E78.00 - Pure hypercholesterolemia, unspecified TSH reflex Free T4 3 Months E78.00 - Pure hypercholesterolemia, unspecified UA CC w/rflx Micro + Cult 3 Months R30.0 - Dysuria Vitamin D 25-OH Total 3 Months E55.9 - Vitamin D deficiency, unspecified Vitamin B12 and Folate 3 Months E53.8 - Deficiency of other specified B group vitamins Hemoglobin A1c 3 Months E11.9 - Type 2 diabetes mellitus without complications Comprehensive [place]. Panel Fast 3 Months E78.00 - Pure hypercholesterolemia, unspecified Microalbumin, Random (w Creat) 3 Months E11.9 - Type 2 diabetes mellitus without complications Referrals Pain Management Referral M46.1 - Sacroiliitis, not elsewhere classified, M54.50 - Low back pain, unspecified
[2024-10-08 12:53] VITALS: BP 116/84; PULSE 82; O2SAT 96; BMI 35.0
== END 2024-10-08 13:27 | disposition home or self-care (01) ==
LOC: HO.HMCH 12:37
PROVIDERS: PCP Internal Medicine; Visit Provider Internal Medicine
DX: E11.9 Type 2 diabetes mellitus without complications (principal); I10 Essential (primary) hypertension; E78.00 Pure hypercholesterolemia, unspecified; J45.40 Moderate persistent asthma, uncomplicated; G43.009 Migraine without aura, not intractable, without status migrainosus; M51.362 Other intervertebral disc degeneration, lumbar region with discogenic back pain and lower extremity pain; M17.0 Bilateral primary osteoarthritis of knee; K21.9 Gastro-esophageal reflux disease without esophagitis; E55.9 Vitamin D deficiency, unspecified; E53.8 Deficiency of other specified B group vitamins; F51.01 Primary insomnia; F41.9 Anxiety disorder, unspecified

== ENCOUNTER → 2024-10-08 12:36 | Outpatient (BNVA) | payer OTHER, SELFPAY | PROVIDERS: PCP Internal Medicine; Visit Provider Internal Medicine | DX: E11.9 Type 2 diabetes mellitus without complications (principal); I10 Essential (primary) hypertension; E78.00 Pure hypercholesterolemia, unspecified; J45.40 Moderate persistent asthma, uncomplicated; G43.009 Migraine without aura, not intractable, without status migrainosus; M51.362 Other intervertebral disc degeneration, lumbar region with discogenic back pain and lower extremity pain; M17.0 Bilateral primary osteoarthritis of knee; K21.9 Gastro-esophageal reflux disease without esophagitis; E55.9 Vitamin D deficiency, unspecified; E53.8 Deficiency of other specified B group vitamins; F51.01 Primary insomnia; F41.9 Anxiety disorder, unspecified; F33.9 Major depressive disorder, recurrent, unspecified; E66.9 Obesity, unspecified; D64.9 Anemia, unspecified; Z68.35 Body mass index [BMI] 35.0-35.9, adult | CPT/HCPCS: 96127; 99212 ==

== ENCOUNTER 2024-10-20 10:13 | Outpatient (AMB) | payer OTHER, SELFPAY ==
[2024-10-20 10:39] VITALS: BP 136/84; PULSE 87; RESP 16; O2SAT 97; BMI 35.0
--- NOTE | 2024-10-20 10:39 | A.OFFVIS_ITS ---
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 Allergies aspirin [ASPIRIN] Allergy (Intermediate, Verified 10/20/24 10:40) ITCH, hives diphenhydramine [From Benadryl] Allergy (Intermediate, Verified 10/20/24 10:40) hives latex [LATEX] Allergy (Intermediate, Verified 10/20/24 10:40) Itching oxybutynin Allergy (Unknown, Verified 10/20/24 10:40) unknown dog dander [DOG] Adverse Reaction (Intermediate, Verified 10/20/24 10:40) sinus problems environmental allergies Adverse Reaction (Intermediate, Verified 10/20/24 10:40) sinus problems gabapentin Adverse Reaction (Intermediate, Verified 10/20/24 10:40) difficulty sleeping Penicillins [PENICILLINS] Adverse Reaction (Intermediate, Verified 10/20/24 10:40) Faint Sulfa (Sulfonamide Antibiotics) Adverse Reaction (Intermediate, Verified 10/20/24 10:40) nausea, vomiting, myalgia, headache Medication List - Last Reconciled 10/20/24 by Maude Pinto LPN acetaminophen-codeine 300-30 mg 1 tab PO Q6H PRN 28 days albuterol sulfate 90 mcg/actuation 2 puffs PO Q4H PRN atorvastatin 20 mg PO DAILY blood sugar diagnostic (FreeStyle Lite Strips) 1 strip miscellaneous TID blood-glucose meter (FreeStyle Lite Meter kit) As directed cholecalciferol (vitamin D3) 25 mcg PO DAILY citalopram 40 mg PO DAILY 30 days cyanocobalamin (vitamin B-12) 1,000 mcg PO DAILY cyclobenzaprine 5 mg PO BID PRN docusate sodium 100 mg PO DAILY PRN empagliflozin (Jardiance) 25 mg PO DAILY flash glucose scanning reader ([employer] Faith 2 [place]) DIRECTED flash glucose sensor (FreeStyle Faith 2 Sensor kit) As directed change every 14 days [incontinent pads As directed two/daily ] insulin glargine (Lantus Solostar U-100 Insulin) 12 units (0.12 mL) subcut QPM lancets (FreeStyle Lancets) 28 gauge topical TID loratadine (Allergy Relief (loratadine)) 10 mg PO DAILY 30 days lorazepam 0.5 mg PO BEDTIME PRN 30 days metformin 1,000 mg PO BID 90 days nadolol 20 mg PO BEDTIME pantoprazole 40 mg PO DAILY pen needle, diabetic (Comfort EZ Pen [place]) As directed injects once a day sumatriptan succinate 100 mg PO BID PRN tirzepatide (Mounjaro) 7.5 mg (0.5 mL) subcut QWEEK trazodone 100 mg PO BEDTIME PRN 90 days underpads ([employer] Bed Mats) As directed HPI HPI Low back pain: Details: History of Present Illness The patient is a 64-year-old female presenting with chronic lumbar back pain. The pain has persisted for three months, beginning without a specific triggering event. It is localized to the lower back, without lower extremity radiation, and is severe enough to interfere with her sleep. Weather changes and certain movements exacerbate the pain. Historical imaging shows consistent degenerative changes from prior studies, yet there had been no preceding back problems before the current episode. She reports also having osteoarthritis in her knee contributing to her disabil ity, as well as a history of migraines. She has diabetes mellitus, which necessitates caution in the use of cortisone injections. The patient has yet to begin any physical therapy despite this suggestion during the visit. Pain Description - Onset: 3 months ago, spontaneous - Location: Lower back - Radiation: None - Quality: Constant - Severity: Wakes patient at night - Exacerbating Factors: Weather changes, movement - Alleviating Factors: None reported - Interference: Sleep disruption Physical Exam - Appears afebrile. - Alert and oriented. - Mood and affect appropriate. - Follows and participates in conversation appropriately. - Respiratory effort is unlabored. Results - X-ray comparison from 2016 and recent March shows no remarkable changes, consistent degenerative disc disease and arthritis Pain Management - Affect: Pain is impacting sleep - Analgesia: Pain remain constant and unmitigated, physical therapy pending - Adverse Effects: Not applicable as no medications specified; avoidance of cortisone to prevent blood sugar elevation - Activities of Daily Living: Pain interferes with sleep and possibly movement; knee arthritis also affects mobility - Aberrant Drug Related Behaviors: None reported [facility] Medical History COVID-19 vaccine series completed Hearing impairment Obesity (BMI 30-39.9) Depression Anxiety Insomnia Vitamin B12 deficiency Vitamin D deficiency Migraine GERD (gastroesophageal reflux disease) Osteoarthritis of knees, bilateral Lumbar degenerative disc disease Asthma Pure hypercholesterolemia Benign essential hypertension Diabetes mellitus Surgical History S/P excision of lipoma (04/30/23) Hx of dilation and curettage History of hysteroscopy History of pubovaginal sling H/O colonoscopy History of suburethral sling procedure (~05/07/12) Ingrown toenail of left foot History of section History of eye surgery History of tonsillectomy History of tubal ligation Family History Father Diabetes Mother Hypertension High cholesterol Family history of thyroid problem Paternal Grandfather Leukemia Social History Housing: Apartment Alcohol intake: never Patient Tobacco Use Status: Never used Tobacco e-Cigarette/Vaping Use: Never Used Second Hand Smoke Exposure: No service: No Current occupational status: disabled Cognitive needs: Yes (cane) Hearing needs: Yes (needs hearing aide) Vision needs: Yes (Glasses) Female Reproductive History Menstrual Age of Menarche: 13 Physical Exam Vital Signs: Last Vital Signs Pulse 87 10/20/24 10:39 Resp 16 10/20/24 10:39 BP 136/84 10/20/24 10:39 Pulse Ox 97 10/20/24 10:39 Oxygen Delivery Method Room Air 10/20/24 10:39 BMI result Body Mass Index 35.0 Assessment & Plan Assessment & Plan (1) Lumbar degenerative disc disease: Code(s): M51.36 - Other intervertebral disc degeneration, lumbar region Category: Medical Qualifiers: Disc-related pain type: discogenic back pain and lower extremity pain Qualified Code(s): M51.362 - Other intervertebral disc degeneration, lumbar region with discogenic back pain and lower extremity pain Plan Plan - Commence physical therapy for lumbar back pain to fulfill treatment requirements and mitigate symptoms - Advised against cortisone injections due to potential blood sugar complications, prioritizing diabetes management - Plan follow-up visit in two months post-physical therapy to evaluate progress and consider MRI if back pain persists Patient was informed and verbally consented to the use of an ambient scribe for clinic note documentation during this visit. Discussion Notes Discussed with the patient that the current management plan involves initiating physical therapy as a primary intervention due to insurance requirements before considering other treatments such as MRI or injections. I explained the risks associated with cortisone injections, especially concerning her blood sugar levels as a diabetic patient. The patient understands the importance of this step in the process and was agreeable to commencing physical therapy. Provisions have been made for a follow-up appointment in two months to reassess her condition and modify the treatment plan as necessary based on her progress. Patient Instructions - Contact the provided number to schedule physical therapy sessions - Begin physical therapy as directed and monitor any changes in pain - Return for follow-up appointment in two months to evaluate progress - Be attentive to any changes in condition and seek care sooner if symptoms worsen significantly Orders: Orders PT Evaluation and Treatment 10/20/24 M51.362 - Other intervertebral disc degeneration, lumbar region with discogenic back pain and lower extremity pain Coding Level of Care Code New Pt Level 3 (38763) Diagnoses Degeneration of intervertebral disc of lumbar region with discogenic back pain and lower extremity pain M51.362 Disc-related pain type: discogenic back pain and lower extremity pain
== END 2024-10-20 11:04 | disposition home or self-care (01) ==
LOC: HO.PMC 10:15
PROVIDERS: PCP Internal Medicine; Referring Provider Internal Medicine; Visit Provider Internal Medicine
DX: M51.362 Other intervertebral disc degeneration, lumbar region with discogenic back pain and lower extremity pain (principal)
CPT/HCPCS: 99203

== ENCOUNTER → 2024-10-20 10:13 | Outpatient (BNVA) | payer OTHER, SELFPAY | PROVIDERS: PCP Internal Medicine; Referring Provider Internal Medicine; Visit Provider Internal Medicine | DX: M51.362 Other intervertebral disc degeneration, lumbar region with discogenic back pain and lower extremity pain (principal) | CPT/HCPCS: 99202 ==

== ENCOUNTER 2024-11-17 10:04 | Outpatient (REF) | payer OTHER, SELFPAY | END 2024-11-17 10:05 | disposition home or self-care (01) | LOC: HO.MAMMO 10:04 | PROVIDERS: PCP Internal Medicine; Visit Provider Internal Medicine | DX: Z12.31 Encounter for screening mammogram for malignant neoplasm of breast (principal) | CPT/HCPCS: 77063; 77067 ==

== ENCOUNTER → 2024-11-17 10:30 | Outpatient (BNV) | payer OTHER, SELFPAY | PROVIDERS: PCP Internal Medicine; Visit Provider Internal Medicine | DX: Z12.31 Encounter for screening mammogram for malignant neoplasm of breast (principal) | CPT/HCPCS: 77063; 77067 ==

== ENCOUNTER 2025-04-14 11:52 | Emergency (ER) | payer OTHER, SELFPAY ==
--- NOTE | ~2025-04-14 | CT_ITS ---
EXAMINATION: CT CHEST ANGIOGRAPHY WITH IV CONTRAST INDICATION: L sided pleuritic chest pain COMPARISON: There are no prior studies available for comparison. TECHNIQUE: Helical CT scan of the chest was performed following administration of intravenous contrast (65 mL Omnipaque 350). The contrast bolus was timed to optimally opacify the pulmonary arteries. Thin sections were obtained through the pulmonary arteries. Coronal and sagittal reformatted images were generated. 3D/MIP reconstructed images are also obtained and reviewed. This CT exam was performed with one or more of the following dose reduction techniques: automated exposure control, adjustment of the mA and/or kV according to patient size, use of iterative reconstruction technique. DLP: 362 mGy-cm CHEST: THYROID: The thyroid gland is unremarkable. PULMONARY ARTERIES: No intraluminal filling defects are identified within the pulmonary arteries to suggest pulmonary emboli. Pulmonary arteries are normal in caliber, main pulmonary artery measuring 2.6 cm. LUNGS: Low lung volumes. Slightly elevated right hemidiaphragm. Heterogeneous attenuation greatest at the lung bases just above mosaic perfusion probably from hypoventilatory changes. No pulmonary mass or nodule. No consolidation or evidence of pulmonary edema. MEDIASTINUM: There is no mediastinal lymphadenopathy. KHANG: There is no hilar lymphadenopathy. CARDIOVASCULATURE: The heart is upper normal in size. There is no pericardial effusion. The thoracic aorta is normal in caliber. There is a replaced right subclavian artery. No evidence of right heart strain. No reflux of contrast into the liver. DEGREE OF CORONARY CALCIFICATION: mild PLEURA: There is no pleural effusion. No pneumothorax. MAIN AIRWAYS: The mainstem bronchi and proximal branches are patent. AXILLA: There is bilateral axillary lymphadenopathy. No enlarged lymph nodes. No chest wall mass. UPPER ABDOMEN: The visualized portions of the liver, spleen, and adrenals are unremarkable. Small splenule. BONES AND SOFT TISSUES: Degenerative changes of the spine. Dense sclerotic lesion in the T6 vertebral body. This is a nonspecific but may represent a bone island. CT/CT angio chest PE protocol IMPRESSION: No evidence of pulmonary emboli. Low lung volumes and heterogeneous attenuation probably representing mosaic perfusion from hypoventilatory changes. Electronically signed by: Marily Russ MD 04/14/2025 02:18 PM EST RP
--- NOTE | 2025-04-14 11:53 | ECG_ITS ---
Test Reason : CP Blood Pressure : */* mmHG Vent. Rate : 77 BPM Atrial Rate : 77 BPM P-R Int : 140 ms QRS Dur : 82 ms QT Int : 370 ms P-R-T Axes : 49 4 26 degrees QTcB Int : 418 ms Normal sinus rhythm Normal ECG When compared with ECG of 18-Aug-2009 12:55, No significant change was found Referred By: Janette Hyman Electronically Signed By: Octaviano Li
--- NOTE | 2025-04-14 11:57 | ED_ITS ---
HPI - General Adult General Chief complaint: Chest Pain Stated complaint: chest pain, tingling/weakness L arm Time Seen by Provider: 04/14/25 11:54 Source: patient and old records reviewed Mode of arrival: ambulatory Limitations: no limitations History of Present Illness ED Provider: THELMA SOLIS narrative: 65 female with past medical history of diabetes, hypertension, anxiety, depression, GERD, lumbar degenerative disc disease, hypercholesterolemia, asthma here with complaint of left-sided chest pain, chest wall pain, left shoulder and biceps pain but she denies any trauma. She states she notes sleeping hurts, moving hurts, deep breaths her. She has not had any recent travel, procedures, upper respiratory infections. She states her symptoms have gone on for 2 days she tried to take a Tylenol with codeine this morning but no relief. She denies any recent blood draws or procedures on that left side. She is right-handed. She has no dizziness, nausea. She states she can barely use the left arm due to pain. MD complaint: Left chest, left arm pain Onset (ago): day(s) (2) Location: chest, left and upper extremity Radiation: non-radiation Severity: moderate Quality: stabbing and aching Pain Consistency: constant Relieving factors: immobilization Exacerbating factors: movement Associated symptoms: shortness of breath Treatments prior to arrival: other Related Data Previous Rx's ?Medication ?Instructions ?Recorded cyanocobalamin (vitamin B-12) 1,000 mcg PO DAILY #90 t abs 03/12/22 1,000 mcg tablet incontinent pads #1 ea 06/21/23 blood-glucose meter (FreeStyle #1 ea 06/27/23 Lite Meter kit) lorazepam 0.5 mg tablet 0.5 mg PO BEDTIME PRN anxiet y 30 03/27/24 days #30 tabs flash glucose scanning reader #2 ea 04/19/24 (FreeStyle Faith 2 [place]) pen needle, diabetic 32 gauge x #50 ea 08/06/24 (Comfort EZ Pen [place]) metformin 1,000 mg tablet 1,000 mg PO BID 90 days #180 tabs 09/11/24 docusate sodium 100 mg capsule 100 mg PO DAILY PRN con stipation 10/02/24 #180 caps blood sugar diagnostic (FreeStyle 1 strip miscellaneou s TID #300 ea 10/09/24 Lite Strips) albuterol sulfate 90 mcg/actuation 2 puff PO Q4H PRN f or wheezing 11/07/24 aerosol inhaler #8.5 grams cholecalciferol (vitamin D3) 25 25 mcg PO DAILY #90 ta bs 11/26/24 mcg (1,000 unit) tablet lancets 28 gauge (FreeStyle 28 gauge topical TID #300 ea 11/26/24 Lancets) sumatriptan succinate 100 mg tablet 100 mg PO BID PRN for migraine #30 12/04/24 tabs empagliflozin 25 mg tablet 25 mg PO DAILY #30 tabs (Jardiance) atorvastatin 20 mg tablet 20 mg PO DAILY #90 tabs 12/20 11/12 tirzepatide 7.5 mg/0.5 mL 7.5 mg (0.5 mL) subcut QWEEK #2 mL 01/22/25 subcutaneous pen injector ([place]) insulin glargine 100 unit/mL (3 12 unit (0.12 mL) subc ut QPM #15 mL 02/08/25 mL) subcutaneous pen (Lantus Solostar U-100 Insulin) trazodone 100 mg tablet 100 mg PO BEDTIME PRN for in somnia 02/23/25 90 days #90 tabs underpads 2.6 X 2.9 feet #60 ea 02/24/25 (Goodnites Bed Mats) acetaminophen 300 mg-codeine 30 mg 1 tab PO Q6H PRN pa in 28 days #112 02/26/25 tablet tabs citalopram 40 mg tablet 40 mg PO DAILY 30 days #30 t abs 02/26/25 cyclobenzaprine 5 mg tablet 5 mg PO BID PRN for muscle spasm 02/26/25 #60 tabs pantoprazole 40 mg tablet,delayed 40 mg PO DAILY #30 t abs 02/27/25 release loratadine 10 mg tablet (Allergy 10 mg PO DAILY 30 day s #30 tabs 03/18/25 Relief (loratadine)) nadolol 20 mg tablet 20 mg PO BEDTIME #56 tabs cyclobenzaprine 10 mg tablet 10 mg PO TID PRN muscle s pasm #20 04/14/25 tabs flash glucose sensor (FreeStyle #2 ea 04/14/25 Faith 2 Sensor kit) lidocaine 5 % topical patch 1 patch topical DAILY #30 ea 04/14/25 Allergies Allergy/AdvReac Type Severity Reaction Status Date / Time aspirin (ASPIRIN) Allergy Intermediate ITCH, hives Verified 04/14/25 12:00 diphenhydramine (From Allergy Intermediate hives Verified 04/14/25 12:00 Benadryl) latex (LATEX) Allergy Intermediate Itching Verified 04/14/25 12:00 oxybutynin Allergy Unknown unknown Verified 04/14/25 12:00 dog dander (DOG) AdvReac Intermediate sinus Verified 04/14/25 12:00 problems environmental allergies AdvReac Intermediate sinus Verified 04/14/25 12:00 problems gabapentin AdvReac Intermediate difficulty Verified 04/14/25 12:00 sleeping Penicillins (PENICILLINS) AdvReac Intermediate Faint Verified 04/14/25 12:00 Sulfa (Sulfonamide AdvReac Intermediate nausea, Verified 04/14/25 12:00 Antibiotics) vomiting, myalgia, headache Review of Systems 2 Review of Systems: Constitutional : No Weight loss, No Fever, No Chills ENT/Mouth : No sore throat, No Rhinorrhea Eyes: No Eye Pain, No Swelling Cardiovascular : pos Chest Pain, pos SOB Respiratory : No Cough, No Sputum Gastrointestinal : no Nausea, No Vomiting, No Diarrhea, No abdominal Pain, No Hematochezia, No Melena Genitourinary : No Dysuria, No Urinary Frequency Musculoskeletal : pos joint pain, No Myalgias, No Joint Swelling Skin : No Skin Lesions, No rash Neuro : No Weakness, No Numbness, No Dizziness, No Headache All other systems reviewed and are negative PMFSH Past Medical History Attestation statement: The following information was validated with the patient. Source: old records reviewed Medical History COVID-19 vaccine series completed Hearing impairment Obesity (BMI 30-39.9) Depression Anxiety Insomnia Vitamin B12 deficiency Vitamin D deficiency Migraine GERD (gastroesophageal reflux disease) Osteoarthritis of knees, bilateral Lumbar degenerative disc disease Asthma Pure hypercholesterolemia Benign essential hypertension Diabetes mellitus Surgical History S/P excision of lipoma (04/30/23) Hx of dilation and curettage History of hysteroscopy History of pubovaginal sling H/O colonoscopy History of suburethral sling procedure (~05/07/12) Ingrown toenail of left foot History of section History of eye surgery History of tonsillectomy History of tubal ligation Family History Family History Father Diabetes Mother Hypertension High cholesterol Family history of thyroid problem Paternal Grandfather Leukemia Social History Social History Housing: Apartment Alcohol intake: never Patient Tobacco Use Status: Never used Tobacco Smoked in Last 30 Days: No e-Cigarette/Vaping Use: Never Used Second Hand Smoke Exposure: No Use of substances other than those prescribed or required for medical reasons: No Advance Directives: No Advance Directives Information Provided: Yes Patient : No service: No Current occupational status: disabled Cognitive needs: Yes (cane) Hearing needs: Yes (needs hearing aide) Vision needs: Yes (Glasses) Physical Exam ED Vital Signs: Vital Signs - 24 hr 04/14/25 11:59 Temperature 97.5 F Pulse Rate 79 Respiratory Rate 18 Blood Pressure 147/70 H Pulse Oximetry 95 Oxygen Delivery Method Room Air BMI result Body Mass Index 33.4 Appearance: Alert. Oriented X3. No acute distress. Eyes: Pupils equal, round and reactive to light. ENT: Pharynx normal. Neck: Normal inspection. Neck supple. CVS: Normal heart rate and rhythm. Pulses normal. Chest: She has tenderness to palpation when touching her pectoralis muscle that does reproduce her pain. Respiratory: No respiratory distress. Breath sounds normal. Abdomen: Soft and nontender. Skin: Skin warm and dry. Normal skin color. Extremities: No lower extremity edema. She has brisk capillary refill and left hand as well as right her hand to be on exam is warm to touch. She has no mottled appearance, no swelling to left upper extremity, she has sensation intact, she has 2+ radial pulse that are symmetric on exam. Neuro: Oriented X 3. No motor deficit. No sensory deficit. CN2-12 intact Course Course Course Narrative: This is a rapid medical exam performed by Minerva Hyman NP: Additional HPI, ROS, PE not included below will be deferred to primary provider. Patient is a 65y/o F with pmhx T2DM, hearing impairment, GERD, migraines, asthma, HTN presenting with complaint of left sided chest pain, dyspnea, pain radiating down L arm x 2 days. Denies diaphoresis. Pain worse with movement. Plan: EKG, labs, CXR Medications Administered Discontinued Medications Generic Name Dose Route Start Last Admin Trade Name Juan Pablo PRN Reason Stop Dose Admin Iohexol 100 ml 04/14/25 13:18 04/14/25 13:18 Iohexol 350 Mg/Ml 100 Ml Infus..Btl IV 04/14/25 13:19 65 ml ONCE ONE Administration Morphine Sulfate 4 mg 04/14/25 12:14 04/14/25 12:25 Morphine Sulfate 4 Mg/Ml Cartridge IVPUSH 04/14/25 12:15 4 mg ONCE ONE Administration Protocol Medical Decision Making Medical Decision Making [facility] Narrative: 65 female with past medical history of diabetes, hypertension, anxiety, depression, GERD, lumbar degenerative disc disease, hypercholesterolemia, asthma here with complaint of reproducible chest wall pain, that radiates down to left arm. I can not range her arm due to pain but she has no signs of infection, rash, her sensation is intact, her capillary refill, radial pulses, warmth to the hand is symmetric to her right. She does report some shortness of breath and has nonspecific STT wave changes in anterior leads but no signs of acute ischemia, I think given all this and her pleuritic component to the chest pain I am going to obtain basic labs as well as CTA of the chest. Please see differential below. I have ordered IV morphine for pain Differential Diagnosis Differential Diagnoses: The differential diagnosis associated with the presentation includes Moderate pulmonary embolus, musculoskeletal pain, atypical chest pain, pulses are intact and symmetric no radiation to the back I see no signs of vascular compromise on exam I have very low suspicion for dissection Admission/Observation Consideration of admission/observation: Escalation of care including admission/observation considered At this time with 2 days of symptoms her labs are reassuring, her EKG is nonischemic, her troponin is flat Her CTA shows no pulmonary embolus or issues with the aorta She can be DC home with pain control and follow up with her primary care provider Lab Data [facility] Lab Attestation statement: I reviewed the patient's lab results. 04/14/25 12:06 04/14/25 12:06 Labs: Lab Results 04/14/25 Range/Units 12:06 WBC 8.0 (4.8-10.8) X10*3/uL RBC 4.83 (4.20-5.50) X10*6/uL Hgb 13.0 (12.0-16.0) g/dl Hct 41.1 (37.0-47.0) % MCV 85.1 (80.0-98.0) fL MCH 26.9 L (27.0-33.0) pg MCHC 31.6 (31.0-35.0) g/dl RDW 15.2 (11.0-16.0) % Plt Count 334 (160-400) X10*3/uL MPV 9.4 (9.4-12.3) fL Immature Gran % (Auto) 0.4 (0.0-0.4) % Neut % (Auto) 57.2 (45-73) % Lymph % (Auto) 33.4 (20-40) % [place] % (Auto) 6.3 (2-11) % Eos % (Auto) 1.9 (0-4) % Baso % (Auto) 0.8 (0-2) % Lymph # (Auto) 2.7 (1.2-4.9) X10*3/uL [place] # (Auto) 0.5 (0.1-1.2) X10*3/uL Eos # (Auto) 0.2 (0.0-0.4) X10*3/uL Baso # (Auto) 0.1 (0.0-0.2) X10*3/uL Abs Immat Gran (auto) 0.03 (0.00-0.03) X10*3/uL Absolute Neuts (auto) 4.6 (2.0-8.3) x10*3/uL Absolute Nucleated RBC 0.000 (0.0-0.012) X10*3/uL Nucleated RBC % (auto) 0.0 (0.0-0.2) /100WBC PT 12.7 (11.2-13.5) SEC INR 1.0 (0.9-1.1) Sodium 141 (135-145) mmol/L Potassium 4.3 (3.3-5.1) mmol/L Chloride 106 (96-108) mmol/L Carbon Dioxide 26 (22-29) mmol/L Anion Gap 14 (12-20) BUN 13 (9-16) mg/dL Creatinine 0.70 (0.5-1.4) mg/dL Estim Creat Clear Calc 93.7 Estimated GFR > 60 Random Glucose 142 H (60-115) mg/dL Calcium 9.7 (8.4-10.2) mg/dL Total Bilirubin 0.4 (0.0-1.0) mg/dL AST 15 (5-31) U/L ALT 12 (0-31) U/L Alkaline Phosphatase 92 (39-117) U/L Troponin I High Sens < 2.7 (<3.5-17.0) ng/L Total Protein 7.8 (6.5-8.0) g/dL Albumin 4.6 (3.5-5.0) g/dL Independent Interpretation I performed an independent interpretation of an: EKG and CT Scan (No PE normal thoracic aorta) Interpretation: Rate: 77 Rhythm: Normal sinus rhythm Pelican: Left Normal P waves. Normal AMOS. Normal QRS complex. ST T wave : Inverted T-waves V1, nonspecific ST-T wave changes qTC: 418 prior studies: No STEMI The study has been interpreted contemporaneously by me. . Radiology Impression Discussion of test interpretation with radiology: I have reviewed the radiologist's reading. External Record Review External record reviewed: Outpatient record, Prior outpatient labs and Prior outpatient radiology Prescription Management I considered prescription management with: Pain Medication Discharge Plan Discharge Clinical Impression: Atypical chest pain, Acute chest wall pain Patient Disposition: Home, Self-Care Instructions: Chest Pain (ED), Chest Wall Pain (ED) Additional Instructions: Labs are reassuring Troponin is negative for signs of heart attack in the bloodstream EKGs otherwise reassuring CT of the chest does not show any blood clot, pneumonia, issues with the large artery call the aorta At this time your pain is very reproducible and it seems likely musculoskeletal. With your risk factors you should follow up with your doctor in case they want to proceed with further cardiac workup As we discussed your cardiac work up was reassuring in the Emergency Department. We feel it is safe for you to go home at this time but you are going to need to follow up with your primary care doctor or human services worker. You will need further work up such as ECHO, cardiac stress testing, coronary CT angiogram to assess your cardiac risk. Prescriptions: New lidocaine 5 % adhesive patch,medicated 1 patch topical DAILY Qty: 30 0RF Rx Instructions: leave on most painful area for up to 12 hrs cyclobenzaprine 10 mg tablet 10 mg PO TID PRN (Reason: muscle spasm) Qty: 20 0RF No Action cyanocobalamin (vitamin B-12) 1,000 mcg tablet 1,000 mcg PO DAILY Qty: 90 3RF (DME) incontinent pads See Rx Instructions .Route .MEDSUPPLY Qty: 1 3RF Rx Instructions: As directed two/daily (DME) blood-glucose meter [FreeStyle Lite Meter] Kit See Rx Instructions .ROUTE .MEDSUPPLY Qty: 1 0RF Rx Instructions: As directed (DME) FreeStyle Faith 2 [place] Misc See Rx Instructions .ROUTE .COMPLEX Qty: 2 4RF Dose Instruction: DIRECTED Rx Instructions: DIRECTED (DME) pen needle, diabetic [Comfort EZ Pen [place]] 32 gauge x 5/32 needle See Rx Instructions .Route Qty: 50 12RF Rx Instructions: As directed injects once a day metformin 1,000 mg tablet 1,000 mg PO BID 90 Days Qty: 180 11RF docusate sodium 100 mg capsule 100 mg PO DAILY PRN (Reason: constipation) Qty: 180 6RF FreeStyle Lite Strips Strip 1 strip miscellaneous TID Qty: 300 12RF albuterol sulfate 90 mcg/actuation HFA aerosol inhaler 2 puff PO Q4H PRN (Reason: for wheezing) Qty: 8.5 3RF cholecalciferol (vitamin D3) 25 mcg (1,000 unit) tablet 25 mcg PO DAILY Qty: 90 2RF lancets [FreeStyle Lancets] 28 gauge misc 28 gauge topical TID Qty: 300 5RF sumatriptan succinate 100 mg tablet 100 mg PO BID PRN (Reason: for migraine) Qty: 30 2RF Jardiance 25 mg tablet 25 mg PO DAILY Qty: 30 3RF atorvastatin 20 mg tablet 20 mg PO DAILY Qty: 90 1RF Mounjaro 7.5 mg/0.5 mL pen injector 7.5 mg subcut QWEEK Qty: 2 4RF insulin glargine [Lantus Solostar U-100 Insulin] 100 unit/mL (3 mL) insulin pen 12 unit subcut QPM Qty: 15 4RF trazodone 100 mg tablet 100 mg PO BEDTIME PRN (Reason: for insomnia) 90 Days Qty: 90 1RF (DME) Goodnites Bed Mats 2.6 X 2.9 feet pad See Rx Instructions .Route Qty: 60 11RF Rx Instructions: As directed acetaminophen-codeine 300-30 mg tablet 1 tab PO Q6H PRN (Reason: pain) 28 Days Qty: 112 0RF cyclobenzaprine 5 mg tablet 5 mg PO BID PRN (Reason: for muscle spasm) Qty: 60 2RF citalopram 40 mg tablet 40 mg PO DAILY 30 Days Qty: 30 2RF pantoprazole 40 mg tablet,delayed release (DR/EC) 40 mg PO DAILY Qty: 30 2RF loratadine [Allergy Relief (loratadine)] 10 mg tablet 10 mg PO DAILY 30 Days Qty: 30 12RF nadolol 20 mg tablet 20 mg PO BEDTIME Qty: 56 5RF (DME) FreeStyle Faith 2 Sensor Kit See Rx Instructions .Route Qty: 2 5RF Rx Instructions: As directed change every 14 days lorazepam 0.5 mg tablet 0.5 mg PO BEDTIME PRN (Reason: anxiety) 30 Days Qty: 30 2RF Print Language: Grenadian
[2025-04-14 11:59] VITALS: BP 147/70; PULSE 79; RESP 18; TEMP 36.4; O2SAT 95; BMI 33.4
[2025-04-14 12:09] LABS: MANUAL DIFF FLAG NO
[2025-04-14 12:25] LABS: Hematocrit 41.1 % (37.0-47.0); Hemoglobin 13.0 g/dl (12.0-16.0); Imm Gran Abs Auto 0.03 X10*3/uL (0.00-0.03); Imm Gran Pct Auto 0.4 % (0.0-0.4); Lymphocytes Absolute Auto 2.7 X10*3/uL (1.2-4.9); Mean Corpuscular HGB Conc 31.6 g/dl (31.0-35.0); Mean Corpuscular Hemoglobin 26.9 pg (27.0-33.0); Mean Corpuscular Volume 85.1 fL (80.0-98.0); NRBC Abs Auto 0.000 X10*3/uL (0.0-0.012); NRBC Pct Auto 0.0 /100WBC (0.0-0.2); Platelet Count 334 X10*3/uL (160-400); Red Blood Count 4.83 X10*6/uL (4.20-5.50); White Blood Count 8.0 X10*3/uL (4.8-10.8)
[2025-04-14 12:30] LABS: INTERNATIONAL NORM RATIO 1.0 (0.9-1.1); Prothrombin Time 12.7 SEC (11.2-13.5)
[2025-04-14 12:35] LABS: Calcium 9.7 mg/dL (8.4-10.2); Chloride 106 mmol/L (96-108); Potassium 4.3 mmol/L (3.3-5.1); Sodium 141 mmol/L (135-145); Troponin-I High Sensitivity < 2.7 ng/L (<3.5-17.0)
[2025-04-14 13:04] LABS: Alanine Aminotransferase 12 U/L (0-31); Albumin Level 4.6 g/dL (3.5-5.0); Alkaline Phosphatase 92 U/L (39-117); Anion Gap 14 (12-20); Aspartate Amino Transferase 15 U/L (5-31); Blood Urea Nitrogen 13 mg/dL (9-16); Carbon Dioxide 26 mmol/L (22-29); Creatinine Clr Calc Pharmacy 93.7; Estimated Glomerular Filt Rate > 60; Total Protein 7.8 g/dL (6.5-8.0)
[2025-04-14] MEDS: iohexoL 350 MG/ML 100 ML INFUS..BTL IV (13:18)
[2025-04-14 14:44] VITALS: BP 147/70; PULSE 79; RESP 18; TEMP 36.4; O2SAT 95
== END 2025-04-14 14:46 | disposition home or self-care (01) ==
PROVIDERS: Registered Nurse Emergency; Emergency Provider Emergency Medicine; PCP Internal Medicine
DX: R07.89 Other chest pain (principal); R07.9 Chest pain, unspecified; M25.512 Pain in left shoulder; E11.9 Type 2 diabetes mellitus without complications; I10 Essential (primary) hypertension; F41.9 Anxiety disorder, unspecified; Z79.899 Other long term (current) drug therapy
CPT/HCPCS: 36415; 71275; 80053; 84484; 85025; 85610; 93005; 96374; 99284; J2270; Q9967

== ENCOUNTER → 2025-04-14 11:53 | Outpatient (BNV) | payer OTHER, SELFPAY | PROVIDERS: Emergency Provider Emergency Medicine; PCP Internal Medicine; Visit Provider Internal Medicine Cardiovascular Disease | DX: R07.9 Chest pain, unspecified (principal) | CPT/HCPCS: 93010 ==

== ENCOUNTER → 2025-04-14 12:10 | Outpatient (BNV) | payer OTHER, SELFPAY | PROVIDERS: Emergency Provider Emergency Medicine; PCP Internal Medicine; Visit Provider Radiology Diagnostic Radiology | DX: J98.4 Other disorders of lung (principal) | CPT/HCPCS: 71275 ==

== ENCOUNTER 2025-04-29 15:09 | Outpatient (AMB) | payer OTHER, SELFPAY ==
--- NOTE | 2025-04-29 15:28 | A.OFFPC_ITS ---
Vital Signs 04/29/25 15:39 Height 5 ft 6 in Weight 207 lb 4 oz BMI 33.4 BP 122/76 Blood Pressure Location Lt brachial Position Sitting Pulse 85 Pulse Source Pulse Oximeter Pulse Oximetry (%) 96 Oxygen Delivery Method Room Air Intake Visit Reasons: 3mth f/u, resched- A1C needed Keyliner Required: No Accompanied by: Self / Same As Patient Allergies aspirin (ASPIRIN) Allergy (Intermediate, Verified 04/29/25 15:58) ITCH, hives diphenhydramine (From Benadryl) Allergy (Intermediate, Verified 04/29/25 15:58) hives latex (LATEX) Allergy (Intermediate, Verified 04/29/25 15:58) Itching oxybutynin Allergy (Unknown, Verified 04/29/25 15:58) unknown dog dander (DOG) Adverse Reaction (Intermediate, Verified 04/29/25 15:58) sinus problems environmental allergies Adverse Reaction (Intermediate, Verified 04/29/25 15:58) sinus problems gabapentin Adverse Reaction (Intermediate, Verified 04/29/25 15:58) difficulty sleeping Penicillins (PENICILLINS) Adverse Reaction (Intermediate, Verified 04/29/25 15:58) Faint Sulfa (Sulfonamide Antibiotics) Adverse Reaction (Intermediate, Verified 04/29/25 15:58) nausea, vomiting, myalgia, headache Medication List - Last Reconciled 04/29/25 by Christopher Domínguez MD acetaminophen-codeine 300-30 mg 1 tab PO Q6H PRN 28 days albuterol sulfate 90 mcg/actuation 2 puffs PO Q4H PRN atorvastatin 20 mg PO DAILY blood sugar diagnostic (FreeStyle Lite Strips) 1 strip miscellaneous TID blood-glucose meter (FreeStyle Lite Meter kit) As directed cholecalciferol (vitamin D3) 25 mcg PO DAILY citalopram 40 mg PO DAILY 30 days cyanocobalamin (vitamin B-12) 1,000 mcg PO DAILY cyclobenzaprine 10 mg PO TID PRN cyclobenzaprine 5 mg PO BID PRN docusate sodium 100 mg PO DAILY PRN empagliflozin (Jardiance) 25 mg PO DAILY flash glucose scanning reader (PayOrPassStyle Faith 2 [place]) DIRECTED flash glucose sensor (FreeStyle Faith 2 Sensor kit) As directed change every 14 days [incontinent pads As directed two/daily ] insulin glargine (Lantus Solostar U-100 Insulin) 12 units (0.12 mL) subcut QPM lancets (FreeStyle Lancets) 28 gauge topical TID lidocaine 5% 1 patch topical DAILY loratadine (Allergy Relief (loratadine)) 10 mg PO DAILY 30 days lorazepam 0.5 mg PO BEDTIME PRN 30 days metformin 1,000 mg PO BID 90 days nadolol 20 mg PO BEDTIME pantoprazole 40 mg PO DAILY pen needle, diabetic (Comfort EZ Pen Warner) As directed injects once a day sumatriptan succinate 100 mg PO BID PRN tirzepatide (Mounjaro) 7.5 mg (0.5 mL) subcut QWEEK trazodone 100 mg PO BEDTIME PRN 90 days underpads (Goodnites Bed Mats) As directed Tobacco use date assessed: 04/29/25 Fall risk assessment: No Falls in past year Last assessed Fall Risk: 04/29/25 Dental Screening Dental Screen Date: 04/29/25 Did you have a dental visit in the last 12 months?: No Did you have a dental problem in the last 6 months where you did not have access to dental care?: No Was dental information given to patient?: No HPI 3mth f/u, resched- A1C needed HPI Details Patient comes in today for her follow up visit States that she feels okay She denies any headaches or dizziness Denies any increased SOB No nausea/vomiting, no abdominal pain No change in bowel habits noted States that her chronic right lower back pain and joint pains remain adequately controlled on her current Rx She is also now seeing pain management for her low back pain She had some labs done a couple of weeks ago but these were non-fasting labs and were done at the ER when she presented there with acute chest pains - work ups done at the time revealed no cardiac involvement Patient states that her chest pains have not recurred since States that she also needs Rx for a new shower chair and a refill on her CGM sensor [facility] Medical History COVID-19 vaccine series completed Hearing impairment Obesity (BMI 30-39.9) Depression Anxiety Insomnia Vitamin B12 deficiency Vitamin D deficiency Migraine GERD (gastroesophageal reflux disease) Osteoarthritis of knees, bilateral Lumbar degenerative disc disease Asthma Pure hypercholesterolemia Benign essential hypertension Diabetes mellitus Surgical History S/P excision of lipoma (04/30/23) Hx of dilation and curettage History of hysteroscopy History of pubovaginal sling H/O colonoscopy History of suburethral sling procedure (~05/07/12) Ingrown toenail of left foot History of section History of eye surgery History of tonsillectomy History of tubal ligation Family History Father Diabetes Mother Hypertension High cholesterol Family history of thyroid problem Paternal Grandfather Leukemia Social History Housing: Apartment Alcohol intake: never Patient Tobacco Use Status: Never used Tobacco e-Cigarette/Vaping Use: Never Used Second Hand Smoke Exposure: No service: No Current occupational status: disabled Cognitive needs: Yes (cane) Hearing needs: Yes (needs hearing aide) Vision needs: Yes (Glasses) Female Reproductive History Menstrual Age of Menarche: 13 Questionnaire PHQ-9 Over the last 2 weeks, how often have you been bothered by any of the following problems? 1. Little interest or pleasure in doing things: several days 2. Feeling down, depressed, or hopeless: several days 3. Trouble falling or staying asleep, or sleeping too much: not at all 4. Feeling tired or having little energy: not at all 5. Poor appetite or overeating: not at all 6. Feeling bad about yourself - or that you are a failure or have let yourself or your family down: not at all 7. Trouble concentrating on things, such as reading the newspaper or watching television: not at all 8. Moving or speaking so slowly that other people could have noticed. Or the opposite - being so fidgety or restless that you have been moving around a lot more than usual: several days 9. Thoughts that you would be better off or of hurting yourself in some way: not at all Total score: 3 Depression Screening Interpretation: Positive Depression Screening Follow-up: Existing condition and In treatment Depression Screening Done: Yes 22193 - PHQ-9 Billing: Yes Source: Developed by Drs. Nii Shah, Gustavo Flores and colleagues, with an educational dani from [employer]. Thrive Questionnaire Date Thrive assessed: 04/29/25 I am a: Patient What is your living situation today?: I have a steady place to live Within the past 12 months, did the food you bought not last and you didn't have the money to get more?: Never true Within the past 12 months, did you worry whether your food would run out before you got money to buy more?: Never true Do you have trouble paying for medicines?: No Do you have trouble getting transportation to medical appointments?: No Do you have trouble paying your heating and electricity bill?: No Do you have trouble taking care of your child, family member or friend?: No Do you have trouble with day-to-day activities such as bathing, preparing meals, shopping, managing finances, etc.?: No Are you currently unemployed and looking for a job?: I choose not to answer this question Are you interested in more education?: No Please select the resources that you would like help with: Food Currently or been in a relationship where the following occur: I choose not to answer THRIVE Score: 0 AUDIT C Alcohol Use Questionnaire (AUDIT-C) 1. How often do you have a drink containing alcohol?: Never 3. How often do you have six or more drinks on one occasion?: Never Total Score: 0 Score Reviewed/Action Taken: Yes SONYA-7 AMB Questionnaire SONYA-7 Date SONYA - 7 assessed: 04/29/25 Feeling nervous, anxious, or on edge: 1 = Several days Not being able to stop or control worryin = Not at all Worrying too much about different things: 0 = Not at all Trouble relaxin = Several days Being so restless that it is hard to sit still: 0 = Not at all Becoming easily annoyed or irritable: 0 = Not at all Feeling afraid as if something awful might happen: 0 = Not at all Total SONYA-7 score (0-4 normal; 5-9 mild; 10-14 moderate; 15-21 severe): 2 Source: Developed by Leslie Jara Kurt Kroenke and colleagues, with an educational dani from [employer]. Review of Systems Const Denies chills, Denies fatigue, Denies fever(s) and Denies headache(s) ENT Denies dysphagia, Denies dizziness, Denies otalgia, Denies headache(s), Denies neck pain, Denies odynophagia and Denies sore throat Card Denies chest pain, Denies palpitations and Denies dyspnea Resp Denies chest congestion, Denies cough and Denies dyspnea GI Denies abdominal pain, Denies constipation, Denies dysphagia, Denies heartburn, Denies diarrhea, Denies nausea, Denies odynophagia and Denies vomiting Denies difficulty voiding, Denies nocturia, Denies dysuria, Denies urinary hesitancy and Denies urinary urgency Musc Reports back pain (on and off, over the lower back - chronic), Reports arthralgias (over both knees), Denies neck pain and Reports tingling (occasionally, in the right leg) Skin/Breast Denies rash Neuro Denies dizziness, Denies headache(s) and Reports tingling (occasionally, in the right leg) Psych Denies anxiety Endo Denies fatigue and Denies palpitations Physical exam (Primary Care) Vital Signs: Last Vital Signs Pulse 85 04/29/25 15:39 BP 122/76 04/29/25 15:39 Pulse Ox 96 04/29/25 15:39 Oxygen Delivery Method Room Air 04/29/25 15:39 BMI result Body Mass Index 33.4 Tobacco/Smoking Status: Tobacco use Status Tobacco use date assessed 04/29/25 04/29/25 15:31 Patient Tobacco Use Status Never used Tobacco 04/29/25 15:31 e-Cigarette/Vaping Use Never Used 04/29/25 15:31 PHQ-9: PHQ-9 Score PHQ-9: Total score 3 04/30/25 05:17 Depression Screening Interpretation: Positive Depression Screening Follow-up: Existing condition and In treatment Thrive Assessment: Date of Thrive Assessment Date Thrive assessed 04/29/25 04/29/25 15:31 Currently or been in a relationship where the following occur: I choose not to answer Const General: no acute distress and alert HENMT Ears: TM's normal bilaterally and EAC's normal Throat: Yes posterior oropharynx normal and Yes tonsils normal (no TP congestion noted) Neck Neck: Yes supple and No lymphadenopathy Thyroid: Thyroid normal Resp Auscultation: clear to auscultation bilaterally, no rales and no wheezes Cardio Rate: regular rate Rhythm: regular rhythm Heart sounds: no murmurs GI Palpation (GI): Soft to palpation and nontender Auscultation: normal bowel sounds General: Yes no CVA tenderness Back/Spine/Pelvis Back: no CVA tenderness Thoracic/Lumbar Spine: paraspinal muscle tenderness on the right in the lower lumbar and lumbar spinal tenderness Sacroiliac joints: on the right tender to palpation Skin Rashes: no rashes Extrem General: Yes no clubbing, cyanosis or edema Right lower extremity: knee Details: tenderness; no swelling Left lower extremity: knee Details: tenderness; no swelling Results AMB Hemoglobin A1c AMB Hemoglobin A1c 7.0 % Last Edit by DYLAN Rouse on 04/29/25 16 :56 Results Reviewed Results Reviewed: Laboratory Last Values Hgb A1c (Clinic) 7.0 % (4.0-6.0) H 04/29/25 15:39 Laboratory Tests 04/14/25 12:06 WBC 8.0 Hgb 13.0 Hct 41.1 Plt Count 334 Sodium 141 Potassium 4.3 Creatinine 0.70 Estimated GFR > 60 Random Glucose 142 H Calcium 9.7 AST 15 ALT 12 Coding Level of Care Code Est Pt Level 4 (48791) Diagnoses Type 2 diabetes mellitus without complication, without long-term current use of insulin E11.9 Diabetes mellitus complication status: without complication 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: without penitentiary use Diabetes mellitus type: type 2 Benign essential hypertension I10 Pure hypercholesterolemia E78.00 Moderate persistent asthma without complication J45.40 Asthma complication type: uncomplicated Asthma persistence: persistent Asthma severity: moderate Migraine without aura and without status migrainosus, not intractable G43.009 Intractability: not intractable Migraine type: without aura Status migrainosus presence: without status migrainosus Degeneration of intervertebral disc of lumbar region with discogenic back pain and lower extremity pain M51.362 Disc-related pain type: discogenic back pain and lower extremity pain Primary osteoarthritis of both knees M17.0 Osteoarthritis type: primary Gastroesophageal reflux disease without esophagitis K21.9 Esophagitis presence: without esophagitis Vitamin D deficiency E55.9 Vitamin B12 deficiency E53.8 Primary insomnia F51.01 Insomnia type: primary Anxiety F41.9 Episode of recurrent major depressive disorder, unspecified depression episode severity F33.9 Active/Remission status: currently active Depression Type: major depressive disorder Major depression episode severity: unspecified Major depression recurrence: recurrent Obesity (BMI 30-39.9) E66.9 Additional Codes PHQ-9 - 95190 - PHQ-9 Billing: Yes ([id number]) Assessment & Plan Assessment & Plan (1) Diabetes mellitus: Comment: taking metformin & januvia; Glimepiride added 11/19/20 Code(s): E11.9 - Type 2 diabetes mellitus without complications Category: Medical Qualifiers: Diabetes mellitus complication status: without complication 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: without sales representative church furniture use Diabetes mellitus type: type 2 Qualified Code(s): E11.9 - Type 2 diabetes mellitus without complications Plan: Her in-office HgbA1c today is at 7.0% (her HgbA1c was at 7.1% back in September 2024) - goal is at least <7.5%, in light of her symptoms of dizziness and weakness when her fasting blood sugar dips under 140 mg/dL Reinforced diabetic diet Her C-peptide level was normal and SONYA Ab were negative when checked previously so she is a type 2 diabetic and does not yet require insulin at this time Continue Metformin 1000 mg BID, Trulicity 3.0 mg SQ once a week and Jardiance 25 mg QD; she was taken off Januvia 100 mg QD and Glimepiride 2 mg Q AM over the past year (2) Benign essential hypertension: Code(s): I10 - Essential (primary) hypertension Category: Medical Plan: Reinforced low-sodium diet -? goal is systolic BP of at least 120 to 130 mm or less Patient is reminded to continue monitoring her blood pressure regularly (3) Pure hypercholesterolemia: Code(s): E78.00 - Pure hypercholesterolemia, unspecified Category: Medical Plan: Results of her labs done at the ER a couple of weeks ago reviewed and discussed with patient but these are non-fasting labs Reinforced low cholesterol diet Continue Atorvastatin 10 mg QD Will recheck her labs and fasting lipids in 3 months for follow-up (4) Asthma: Comment: uses prn albuterol inhaler Code(s): J45.909 - Unspecified asthma, uncomplicated Category: Medical Qualifiers: Asthma complication type: uncomplicated Asthma persistence: persistent Asthma severity: moderate Qualified Code(s): J45.40 - Moderate persistent asthma, uncomplicated Plan: Controlled Continue Advair HFA 115-21 mcg 2 puffs twice a day and Albuterol inhaler 2 puffs 4 times a day as needed (5) Migraine: Code(s): G43.909 - Migraine, unspecified, not intractable, without status migrainosus Category: Medical Qualifiers: Intractability: not intractable Migraine type: without aura Status migrainosus presence: without status migrainosus Qualified Code(s): G43.009 - Migraine without aura, not intractable, without status migrainosus Plan: Patient states that her headaches have been stable lately Continue Sumatriptan 100 mg PRN and Nadolol 20 mg daily at bedtime for her headache prophylaxis (6) Lumbar degenerative disc disease: Code(s): M51.36 - Other intervertebral disc degeneration, lumbar region Category: Medical Qualifiers: Disc-related pain type: discogenic back pain and lower extremity pain Qualified Code(s): M51.362 - Other intervertebral disc degeneration, lumbar region with discogenic back pain and lower extremity pain Plan: Reinforced activity and weight lifting restrictions Her lumbar spine x-rays done back in 2017 showed (+) lumbar spine facet arthritis SI joint x-rays and right hip x-rays at the time were normal BUT due to her recently increasing right lower back/posterior R hip pain, she was sent her repeat lumbar spine and right hip x-rays as well as SI joint x-rays for further evaluation Her hip x-rays came back normal, lumbar spine x-rays revealed (+) mild lumbar spondylosis but her SI joint x-rays revealed (+) significant SI joint arthritis, increased from previous Will refer her to pain management for her increased low back pain due to SI joint arthritis - patient may benefit from SI joint injections Continue Tylenol with codeine (#3) 1 tablet every 6 hours as needed for pain (7) Osteoarthritis of knees, bilateral: Code(s): M17.0 - Bilateral primary osteoarthritis of knee Category: Medical Qualifiers: Osteoarthritis type: primary Qualified Code(s): M17.0 - Bilateral primary osteoarthritis of knee Plan: Continue Acetaminophen PRN for pain Follow-up with Orthopedics as scheduled - gets cortisone injections in her knees as needed for pain relief (8) GERD (gastroesophageal reflux disease): Code(s): K21.9 - Gastro-esophageal reflux disease without esophagitis Category: Medical Qualifiers: Esophagitis presence: without esophagitis Qualified Code(s): K21.9 - Gastro-esophageal reflux disease without esophagitis Plan: Dietary restrictions reinforced Continue Pantoprazole 40 mg daily Patient's recent GI symptoms suggest early gastroparesis even though she had a normal gastric emptying study done back in 2019 Follow up with GI as scheduled (9) Vitamin D deficiency: Code(s): E55.9 - Vitamin D deficiency, unspecified Category: Medical Plan: Continue Vitamin D3 1000 units QD (10) Vitamin B12 deficiency: Code(s): E53.8 - Deficiency of other specified B group vitamins Category: Medical Plan: Continue Vitamin B12 tablets 1000 mcg QD (11) Insomnia: Code(s): G47.00 - Insomnia, unspecified Category: Medical Qualifiers: Insomnia type: primary Qualified Code(s): F51.01 - Primary insomnia Plan: Sleep hygiene reinforced Continue Trazodone 100 mg daily at bedtime as needed (12) Anxiety: Code(s): F41.9 - Anxiety disorder, unspecified Category: Medical Plan: Continue Lorazepam 0.5 mg once a day at bedtime as needed (13) Depression: Code(s): F32.9 - Major depressive disorder, single episode, unspecified Category: Medical Qualifiers: Active/Remission status: currently active Depression Type: major depressive disorder Major depression episode severity: unspecified Major depression recurrence: recurrent Qualified Code(s): F33.9 - Major depressive disorder, recurrent, unspecified Plan: Continue Citalopram 40 mg QD Follow-up with Psychiatry as scheduled (14) Obesity (BMI 30-39.9): Code(s): E66.9 - Obesity, unspecified Category: Medical Plan: Reinforced diet; exercise and weight loss are not practical due to patient's physical issues and multiple comorbidities Plan Follow up in 3 months Orders: Orders AMB Hemoglobin A1c 04/29/25 Z13.9 - Encounter for screening, unspecified Hemoglobin A1c 3 Months E11.9 - Type 2 diabetes mellitus without complications Lipid Panel 3 Months E78.00 - Pure hypercholesterolemia, unspecified Complete Blood Count Auto Diff 3 Months D64.9 - Anemia, unspecified Comprehensive Decker. Panel Fast 3 Months E78.00 - Pure hypercholesterolemia, unspecified Vitamin D 25-OH Total 3 Months E55.9 - Vitamin D deficiency, unspecified Microalbumin, Random (w Creat) 3 Months E11.9 - Type 2 diabetes mellitus without complications TSH reflex Free T4 3 Months E78.00 - Pure hypercholesterolemia, unspecified UA CC w/rflx Micro + Cult 3 Months R30.0 - Dysuria Vitamin B12 and Folate 3 Months E53.8 - Deficiency of other specified B group vitamins Medications: New [SHOWER CHAIR] As directed 1 ea 0RF M17.0 - Bilateral primary osteoarthritis of knee, M46.1 - Sacroiliitis, not elsewhere classified blood-glucose sensor (FreeStyle Faith 2 Plus Sensor device) As directed 2 ea 3RF E11.65 - Type 2 diabetes mellitus with hyperglycemia Refilled flash glucose sensor (FreeStyle Faith 2 Sensor kit) As directed change every 14 days 2 ea 5RF E11.65 - Type 2 diabetes mellitus with hyperglycemia
[2025-04-29 15:39] VITALS: BP 122/76; PULSE 85; O2SAT 96; BMI 33.4
== END 2025-04-29 16:22 | disposition home or self-care (01) ==
LOC: HO.HMCH 15:10
PROVIDERS: PCP Internal Medicine; Visit Provider Internal Medicine
DX: Z13.9 Encounter for screening, unspecified (principal)

== ENCOUNTER → 2025-04-29 15:09 | Outpatient (BNVA) | payer OTHER, SELFPAY | PROVIDERS: PCP Internal Medicine; Visit Provider Internal Medicine | DX: I10 Essential (primary) hypertension (principal); E11.9 Type 2 diabetes mellitus without complications; E78.00 Pure hypercholesterolemia, unspecified; J45.40 Moderate persistent asthma, uncomplicated; G43.009 Migraine without aura, not intractable, without status migrainosus; M51.362 Other intervertebral disc degeneration, lumbar region with discogenic back pain and lower extremity pain; M17.0 Bilateral primary osteoarthritis of knee; K21.9 Gastro-esophageal reflux disease without esophagitis; F51.01 Primary insomnia; F41.9 Anxiety disorder, unspecified; F33.9 Major depressive disorder, recurrent, unspecified; E55.9 Vitamin D deficiency, unspecified; E53.8 Deficiency of other specified B group vitamins; Z13.31 Encounter for screening for depression; Z13.39 Encounter for screening examination for other mental health and behavioral disorders; E66.9 Obesity, unspecified; Z79.899 Other long term (current) drug therapy | CPT/HCPCS: 83036; 96127; 99212 ==